=== PATIENT | female | born 1950 | race Caucasian/White ===

== ENCOUNTER → 2023-12-06 12:43 | Outpatient (REF) | payer MEDICARE, OTHER, SELFPAY | LOC: RAD 12:43 | PROVIDERS: ATTENDING PHYSICIAN Urology; FAMILY PHYSICIAN Family Medicine | DX: N11.8 Other chronic tubulo-interstitial nephritis (principal); N20.0 Calculus of kidney | CPT/HCPCS: 74176 ==

== ENCOUNTER → 2023-12-08 14:30 | Outpatient (REF) | payer MEDICARE, OTHER, SELFPAY ==
[2023-12-08 18:05] LABS: Urine Albumin 2+ (Neg - Trace); Urine Bilirubin Negative (Negative); Urine Character Very Cloudy (Clear); Urine Color Yellow; Urine Glucose Negative (Negative); Urine Ketone Negative (Negative); Urine Leukocyte 2+ (Negative); Urine Nitrite Positive (Negative); Urine Occult Blood 4+ (Negative); Urine Specific Gravity 1.015 (<1.030); Urine Urobilinogen Negative (Neg - 1+)
[2023-12-08 18:13] LABS: Urine Squamous Cell 0-2 /LPF (Few); Urine White Cell >100 /HPF (0-5)
== END ==
LOC: CLAB 14:30
PROVIDERS: ATTENDING PHYSICIAN Family Medicine
DX: R82.90 Unspecified abnormal findings in urine (principal)
CPT/HCPCS: 81003; 81015; 87077; 87086

== ENCOUNTER 2023-12-15 15:45 | Inpatient (IN) | payer MEDICARE, OTHER, SELFPAY ==
[2023-12-15] VITALS (32 sets, daily range): BP systolic 57–115; BP diastolic 42–100; BMI 22.1; BMI 21.0
[2023-12-15 13:34] LABS: Glucose - Point of Care 181 mg/dl (70-99)
--- NOTE | 2023-12-15 13:40 | ED.GENMED ---
History of Present Illness
General
Chief Complaint: Urinary Symptoms
Source: patient and ambulance crew
Time Seen by Provider: 12/15/23 13:33
Travel History
Have you had any contact with someone who has COVID-19?: No
Do you have any symptoms of coronavirus? Fever > 100 degrees, chills, cough, shortness of breath, sore throat, loss of taste or smell, muscle aches, or headache?: No
History of Present Illness
History of Present Illness:
73-year-old female presents to the emergency room via ambulance for back pain. Evidently visiting nurse also noted the patient had elevated heart rate low blood pressure. Patient initially taken to triage at became unresponsive and a chair. She
was brought back to treatment room and placed in the supine position had a relatively rapid improvement. She became awake and answer simple questions. Patient noted to have a urostomy bag. She evidently was started on Macrobid for urinary tract
infection recently. Further history limited by confusion.
Past History
Past History
ED Past Medical History: Other (Chronic kidney disease, eye disease, lymphedema, bladder cancer)
Social History
Tobacco: Non-smoker
Alcohol: None
Drug: None
Living: alone
Phy Exam
Physical Exam
Physical Exam:
General: Awake, Alert, oriented to person and place. Appears cachectic and chronically ill
Vitals: Hypothermic, tachycardic, hypotensive
Head: Atraumatic
Eyes: Pupils equal, EOMI
Throat: Airway intact, no exudates, dry mucosa
Neck: Trachea midline
Lungs: Clear and equal b/l
Heart: Tachycardic and irregular rate, no murmurs
Abd: Soft, distended, no significant tenderness, urostomy noted with minimal urine in bag
Rectal:
Neuro: Grossly nonfocal
Skin: Warm, dry, no rash
Extremities: pulses equal b/l, no edema
Course
Orders/Labs/Results
Orders:
Orders
12/15/23
Electrocardiogram (*1) Stat
Reason for Study: Chest Pain
Comment: already done
12/15/23 Lunch
NPO
Allow oral meds: No
Allow clear liquids: No
12/15/23 13:35
0.9% Sodium Chloride 1000 ml [Nss] 2,000 ml IV BOLUS
CR Chest Portable - 1 View Urgent
Comment:
Reason For Exam: sepsis
Reason Study Needs to be Portable: Patient Unstable
12/15/23 13:36
CT Abd/pel Without Iv Or Oral Urgent
Comment:
Reason For Exam: flank pain, hypotensino, ? kidney stone
12/15/23 13:40
Electrocardiogram (*1) Urgent
Reason for Study: Syncope
EKG- Treatment ONCE
12/15/23 13:58
Complete Blood Count/With Diff Urgent
Comprehensive Metabolic Panel Urgent
Ferritin Urgent
Iron Urgent
Lactic Acid Q4H
Comment: CANCEL 2nd LACTIC ACID IF 1st LACTIC ACID IS LESS THAN 2
Total Iron Binding Urgent
Troponin I Urgent
Vitamin B12 Urgent
Comment: IRON,TIBC,FERRITIN,B12 ADDED ON BY FLOOR 3:40PM 12-15-23
Blood Culture Q30M
SHERRI Source: Blood/Venous
Specimen Description:
12/15/23 14:38
Calcium Gluconate IV [Calcium Gluconate 10% 10 ml] 4.65 meq .ROUTE .STK-MED ONE
Calcium Gluconate IV [Calcium Gluconate 10% 10 ml] 4.65 meq .ROUTE .STK-MED ONE
12/15/23 14:39
Blood Culture Q30M
SHERRI Source: Blood/Venous
Specimen Description:
Amiodarone [Cordarone] 150 mg .ROUTE .STK-MED ONE
12/15/23 14:41
Calcium Gluconate IV [Calcium Gluconate 10% 10 ml] 4.65 meq IV NOW STA
12/15/23 14:46
NG Tube [GI tube insertion- Treatment] ONCE
12/15/23 14:48
Piperacillin/Tazo 3.375 Gram [Zosyn] 3.375 gram in 50 ml IV NOW
12/15/23 15:13
Echo 2D MMode Color/Doppler Routine
Reason for Study: hypotension, abnormal EKG
12/15/23 15:14
EKG [Electrocardiogram (*1)] Routine
Reason for Study: Abnormal EKG
12/15/23 15:15
NORepinephrine 4 MG/250 ML [Levophed] 4 mg in 250 ml IV PER PROTOCOL
Initial dose in mcg/min, then titrate:: 4
Titrate to keep:: MAP > 65 mmHg
Titrate by mcg/min:: 1-2 mcg/min
Frequency of titrations (minutes):: 5
Maximum dose in ICU in mcg/min:: 30
Maximum dose in IMU in mcg/min:: 8
Maximum dose in IVU in mcg/min:: 4
Begin to taper infusion when:: Remained at goal for 4hrs
Taper by mcg/min:: 1-2 mcg/min
Frequency of taper (minutes) if patient maintains goal:: 30
Taper to off?: Yes
If infusion off & no longer maintaining goal:: Contact Provider
12/15/23 15:21
Admit/Transfer Patient As Directed
Co-Sign Provider:
Level of Care: Inpatient admission
Assign to:: ICU
Physician / Group: Hospitalist
Diagnosis: SBO,Tachycardia,SHock,Emphesymatous Pyelonephritis
Reason for Hospitalization: SBO,Tachycardia,SHock,Emphesymatous Pyelonephritis
Expected length of stay greater than two midnights?: Yes
ELOS- Estimated Length of Stay in days: 4
I certify the patient meets the requirements for IP care: Yes
12/15/23 15:24
Code Status As Directed
Resuscitation Status: Full Code
12/15/23 15:41
Add On- LAB Routine
Tests Added?: iron,tibc,ferritin,b12
12/15/23 17:14
Lactic Acid Q4H
Comment: CANCEL 2nd LACTIC ACID IF 1st LACTIC ACID IS LESS THAN 2
12/15/23 17:17
Troponin I Q6H
0.9% Sodium Chloride 1000 ml [Nss] 1,000 ml IV 100 mls/hr
12/15/23 17:17
Activity As Directed
Activity Level: Bedrest
NG Tube [Gastrointestinal Tubes] As Directed
Type: [place] sump
To suction?: Yes
Type of suction: Low intermittent
Irrigate tube?: Yes
Irrigant: Tap Water
Frequency: Q4H
Amount in mls: 30
Irrigation Directions: Irrigate Q4H and PRN
PICC Line As Directed
Vital Signs As Directed
Frequency: Per unit guidelines
DX Deep Vein Thrombosis Video Routine
12/15/23 20:42
BMP [Basic Metabolic Panel] Routine
12/15/23 22:00
Latanoprost [Xalatan Ophthalmic Solution] See Dose Instructions BOTH EYES HS
Piperacillin/Tazo 2.25 Gram [Zosyn] 2.25 grams in 50 ml IV Q6H
12/15/23 23:17
Troponin I Q6H
12/16/23 05:17
Troponin I Q6H
12/16/23 06:00
Basic Metabolic Panel IN AM
Complete Blood Count/No Diff IN AM
Magnesium IN AM
TSH IN AM
Vitamin B12 IN AM
12/16/23 08:00
Aspirin Low Dose EC [Aspir Low (Enteric Coated)] 81 mg PO DAILY
Timolol Maleate 0.5% [Timoptic 0.5% Ophthalmic Solution] See Dose Instructions BOTH EYES DAILY
Abnormal Lab Results
12/15/23 12/15/23
13:22 13:58
WBC 16.9 H 10^3/uL
(4.8-10.8)
RBC 3.73 L 10^6/uL
(4.20-5.40)
Hgb 8.9 L g/dL
(12.0-16.0)
Hct 29.0 L %
(37.0-47.0)
MCV 77.7 L fL
(81.0-99.0)
MCH 23.9 L pg
(27.0-31.0)
MCHC 30.7 L g/dL
(33.0-37.0)
RDW 19.3 H %
(11.5-14.5)
Plt Count 697 H 10^3/uL
(130-400)
Abs Immat Gran (auto) 0.3 H 10^3/uL
(0-0.05)
Absolute Neuts (auto) 13.8 H 10^3/uL
(1.4-6.5)
Absolute Monos (auto) 1.3 H 10^3/uL
(0.1-0.6)
Immature Gran % 1.7 H %
(0-0.5)
Neutrophils % 81.8 H %
(42.2-75.2)
Lymphocytes % 8.3 L %
(20.5-51.1)
Sodium 130 L mmol/L
(135-145)
Potassium 5.2 H mmol/L
(3.5-5.1)
Chloride 88 L mmol/L
(98-107)
Carbon Dioxide 21 L mmol/L
(22-30)
BUN 61 H mg/dl
(7-17)
Creatinine 3.7 H mg/dL
(0.6-1.0)
Glucose 137 H mg/dl
(70-99)
Lactic Acid 8.1 H* mmol/L
(0.7-2.0)
Calcium 10.4 H mg/dl
(8.4-10.2)
TIBC 216 L ug/dl
(265-497)
POC Glucose 181 H mg/dl
(70-99)
12/15/23 13:58
12/15/23 13:58
Vital Signs
Initial and Last Documented VS:
Initial Vital Signs
Temp Pulse Resp
96 F L 120 18
12/15/23 13:24 12/15/23 13:24 12/15/23 13:24
Last Documented Vital Signs
Temp Pulse Resp BP Pulse Ox
96 F L 107 22 108/96 100
12/15/23 13:24 12/15/23 17:49 12/15/23 17:49 12/15/23 17:49 12/15/23 18:08
MDM/Problems Addressed
Differential Diagnosis Includes:
Septic shock, dehydration, electrolyte abnormality, renal failure, pneumonia
MDM/Problems Addressed:
73-year-old lady brought to the emergency room by ambulance. She arrives in unstable condition. Patient was evidently briefly taken to triage but became unresponsive and brought back immediately to treatment room. She is found to be hypotensive.
IV access was obtained and IV fluid resuscitation initiated. On physical exam she is noted to appear lethargic, dry, have a distended abdomen and peripheral lymphedema. With fluid resuscitation the patient's blood pressure did improve
significantly. Initial EKG showed a sinus tachycardia with nonspecific ST changes. However patient was observed to have episodes of rapid heart rate. On the production gear cutter the morphology appeared to be wide-complex tachycardia. An EKG taken at
that time actually showed what appears to be atrial fibrillation or a atrial tachycardia with a wide-complex rhythm. Likely SVT or A-fib with aberrancy. With a somewhat slower heart rate a another EKG was obtained and this shows A-fib at 124 with
some aberrantly conducted QRS complexes. Cardiology consultation was requested to help manage her tachycardia. CT of the abdomen pelvis without IV contrast was obtained. This shows significant chronic changes of both kidneys but evidence of acute
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 She has chronic stones and changes of chronic pyelo on the right as well. Urology consultation was obtained with the recommendation of involving interventional radiology for a right nephrostomy tube.
This consult was placed and interventional radiology notified via [place] text. CT of the abdomen pelvis also revealed evidence for small bowel obstruction. Her stomach was impressively distended. NG tube was placed with retrieval of over 2 L of
gastric contents. Surgical consultation was requested to help manage the bowel obstruction versus ileus. Patient will be admitted to the hospital service to the intensive care unit. Broad-spectrum IV antibiotics were initiated. Patient is blood
pressure was somewhat labile and an order was placed for Levophed. He was not started initially as her MAP did improve above 65 ultimately the Levophed was initiated because of the borderline blood pressure.
I spoke to the patient's niece to inform her of the events and diagnoses made here in the emergency room.
Chronic conditions affecting care: Psychiatric illness, Kidney disease and Cancer (Bladder cancer, skin cancer)
*Radiology
Radiology exam reviewed: radiology read reviewed
*Pulse Oximetry
Patient hypoxic: no
*EKG
Interpreted by ED Provider?: Yes
Interpretation: abnormal
Heart Rate: 96
Rate: normal
Rhythm: sinus
[place]: normal axis
Interval: normal interval
QRS Pattern: normal QRS
Ischemia: non-specific ST changes
*Rod Piler Interpretation
Rate: normal
Interpretation: normal
Rhythm: sinus
*Critical Care Note
Total Time (30-74mins, 75-104mins- exclusive of procedures): 65 min
comment:
Critical care statement: A total of 65 minutes of critical care time was provided for this patient. This includes management of unstable vital signs, evaluation of the patient at bedside, reviewing the patient's pertinent medical records, discussion
with consultants, review of old EKGs and review of pertinent medical records. This time with separate from time utilized to perform the aforementioned documented procedures
Patient Management
Social determinants of health affecting care: Living situation and Other (History of mental illness)
Discussion with other providers: Hospitalist, [employer] (Communication with Dr. Hanson from cardiology, Dr. Yang for urology, Dr. Limon for general surgery, Nitin for the hospitalist) and Radiologist (Communication with Dr. Desai about the
patient's CT report)
ED Attending Note
-
Portions of this chart may have been created with voice recognition software.� Occasional wrong word or��sound alike� substitutions may have occurred due to the inherent limitations of voice recognition software.
Discharge Plan
Departure
Patient Disposition: Admit
Date of Disposition: 12/15/23
Time of Disposition: 15:10
Admit to: ICU
Presentation/result/management discussed w/ accepting MD/DO: Hospitalist
Condition: Serious
Discharge Problem:
Pyelonephritis, Acute renal failure (ARF), Supraventricular arrhythmia, Septic shock
Interventions
Interventions:
*Risk Screen - Suicide Last Done: 12/15/23 16:10
*General Assessment Last Done: 12/15/23 13:16
*Neglect/Abuse Screening Last Done: 12/15/23 13:16
ED- Fall Risk Assessment Last Done: 12/15/23 14:09
*ED COVID-19 Vaccine History Last Done: 12/15/23 16:10
*Nursing Disposition Last Done: 12/15/23 17:15
Discharge Date and Time
Discharge Date/Time: 12/15/23 17:17
[2023-12-15] MEDS: NSS 2000 IV (13:41)
[2023-12-15 14:08] LABS: % Basophils 0.2 % (0-2); % Eosinophils 0.1 % (0-6); % Immature Granulocytes 1.7 % (0-0.5); % Lymphocytes 8.3 % (20.5-51.1); % Monocytes 7.9 % (1.7-9.3); % Neutrophils 81.8 % (42.2-75.2); Absolute Immature Granulocytes 0.3 10^3/uL (0-0.05); Absolute Lymphocytes 1.4 10^3/uL (1.2-3.4); Absolute Monocytes 1.3 10^3/uL (0.1-0.6); Absolute Neutrophils 13.8 10^3/uL (1.4-6.5); Hemoglobin 8.9 g/dL (12.0-16.0); Mean Corp Hgb Conc. 30.7 g/dL (33.0-37.0); Mean Corpuscular Hgb 23.9 pg (27.0-31.0); Mean Corpuscular Volume 77.7 fL (81.0-99.0); Mean Platelet Volume 9.1 fL (7.4-10.4); Nucleated Red Blood Cells % 0 %; Platelet Count 697 10^3/uL (130-400); Red Blood Cell Count 3.73 10^6/uL (4.20-5.40); Red Cell Dist. Width 19.3 % (11.5-14.5); White Blood Cell Count 16.9 10^3/uL (4.8-10.8)
[2023-12-15 14:23] LABS: ALT (SGPT) 25 U/L (0-35); AST (SGOT) 22 U/L (14-36); Albumin 3.9 g/dl (3.5-5.0); Alkaline Phosphatase 100 U/L (38-126); Blood Urea Nitrogen 61 mg/dl (7-17); Calcium 10.4 mg/dl (8.4-10.2); Carbon Dioxide 21 mmol/L (22-30); Chloride 88 mmol/L (98-107); Estimated Creatinine Clearance 10 ml/min; Glucose 137 mg/dl (70-99); Potassium 5.2 mmol/L (3.5-5.1); Sodium 130 mmol/L (135-145); Total Bilirubin 0.4 mg/dl (0.2-1.3); Total Protein 7.4 g/dl (6.3-8.2); eGFR 12.38
[2023-12-15 14:32] LABS: Troponin I 0.014 ng/ml
[2023-12-15] MEDS: CALCIUM GLUCONATE 10% 10 ML 4.65000000000000036 MEQ IV (14:42)
[2023-12-15] MEDS: ZOSYN 50 IV ×2 (14:54→22:29)
--- NOTE | 2023-12-15 15:04 | HPS.HSE ---
Family Physician
-
Family Physician: Aracelis Brito MD
Chief Complaint
-
Back pain
History of Present Illness
Patient had a visiting nurse who noted that her heart rate was high and blood pressure was low. Patient was brought into the emergency room in the triage where she had a presyncopal event. She was being treated as a UTI with Macrobid as outpatient
patient has a urostomy bag. Pt poor Historian
Medical History
Past Medical History
Past Medical History: Reports Other
Additional Past Medical History:
, Hyperlipidemia, arthritis/osteoporosis, bladder cancer, anxiety, schizophrenia chronic kidney disease, anemia, tardive dyskinesia, essential tremors
Past Surgical History: Reports Other
Additional Past Surgical History:
Left leg orthopedic surgery, hysterectomy, been ectomy, cystectomy, cataract surgery, breast reduction
Social History
Tobacco: Non-smoker
Alcohol: None
Drug: None
Personal: Single
Living: Alone
Employment: Not Employed
Family History
Family History: Not pertinent
Allergies / Home Medications
Allergies reflects when Allergies were last updated in [facility].
Home Medications with original date entered in [facility]
Allergy/Medication List:
Allergies
Allergy/AdvReac Type Severity Reaction Status Date / Time
No Known Allergies Allergy Unverified 10/31/22 14:10
Home Medications
alendronate 70 mg tablet 70 mg PO WEEKLY 12/15/23
aspirin 81 mg tablet,delayed release 81 mg PO DAILY 12/15/23
latanoprost 0.005 % eye drops 1 drp BOTH EYES QPM 12/15/23
lisinopril 20 mg tablet 20 mg PO DAILY 12/15/23
nitrofurantoin monohydrate/macrocrystals 100 mg capsule 100 mg PO BID 12/15/23
ondansetron HCl 8 mg tablet 8 mg PO Q8HPRN PRN nausea 12/15/23
sennosides 8.6 mg tablet (Senokot) 8.6 mg PO BIDPRN PRN constipation 12/15/23
timolol maleate 0.5 % eye drops 1 drp BOTH EYES DAILY 12/15/23
Review of Systems
-
History Source: Patient
A 12 point ROS was completed and negative except as noted: Yes
Respiratory: Denies Cough or Trouble Breathing
Cardiac: Denies Chest Pain
Abdomen/GI: Denies Abdominal Pain
Physical Exam
Vital Signs
Vital Signs
Temp Pulse Resp BP Pulse Ox
96 F L 147 22 70/44 98
12/15/23 13:24 12/15/23 14:09 12/15/23 14:08 12/15/23 14:08 12/15/23 14:09
Physical Exam
General: No Apparent Distress
Respiratory: Clear
Cardiac: S1/S2, Regular Rhythm and Tachycardia
GI: Soft and Ostomy (Urostomy with clear urine); No Normal Bowel Sounds
Skin: Warm
Neuro: Awake, Alert, Oriented and No Motor Deficits
Psych: Calm
Laboratory Results
-
12/15/23 13:58
12/15/23 13:58
Laboratory Results
Total Bilirubin 0.4 mg/dl (0.2-1.3) 12/15/23 13:58
AST 22 U/L (14-36) 12/15/23 13:58
ALT 25 U/L (0-35) 12/15/23 13:58
Alkaline Phosphatase 100 U/L (38-126) 12/15/23 13:58
Troponin I 0.014 ng/ml 12/15/23 13:58
Data Reviewed
-
Diagnostic Radiology: Image Personally Visualized and interpreted (Chest x-ray-NG tube, no infiltrates)
CT Scan: Report Reviewed by me (Small bowel obstruction, high-grade. 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
Medical Tests (Nuc Med, Echo, EKG etc): Image Personally Visualized and interpreted (EKG-sinus rhythm with supraventricular complexes,AT? left axis deviation, nonspecific ST-T changes)
Impression/Plan
-
IMPRESSION/PLAN:
# Shock-hypovolemic versus septic
IVF
Pressors
Picc line
Hold lisinopril
# Small bowel obstruction high-grade
Keep n.p.o. with NG tube
IV fluids
Surgical consultation requested
# Emphysematous pyelonephritis
Blood and urine cultures
Broad-spectrum antibiotics-Zosyn
Urology consultation
# Tachycardia
# Anemia-check iron studies
# Thrombocytosis
# Acute kidney injury on CKD-likely stage IIIB
# Hyponatremia-likely hypovolemic. IV fluids
Repeat BMP later tonight
# Hyperkalemia-repeat BMP later tonight
# Lactic acidosis-follow
# Hypocalcemia-likely dehydration related
# Hypertension-hold lisinopril
# History bladder cancer with cystectomy and urostomy
# Anxiety and schizophrenia
# Developmental Delay
# Visual impairment -? Glaucoma- Continue Eye drops latanoprost and timolol
# Tardive dyskinesia
# Essential tremors
# DVT prophylaxis-Lovenox
# CODE STATUS-Full code per D/W Niece (Pt never fills out paper work or commit)
Discussed with ER
D/W Surgery
D/W Cards at bed side
D/W RN at bed side
ICU made aware
D/W Niece on the phone and updated.
Critical care time 50 minutes
[2023-12-15 15:14] LABS: Lactic Acid 8.1 mmol/L (0.7-2.0)
--- NOTE | 2023-12-15 15:20 | CON.GS ---
Consultation
-
Reason for Consultation: sbo
Medical History
-
Chief Complaint: nausea, back pain
History of Present Illness:
This is a 73 yo female with a history of bladder ca and cystectomy with ileal conduit creation at [facility] in 2005 who presents with back pain and nausea from home where she lives alone with her cat with VNA checking on her. She is hypotensive and
tachycardic with hypothermia in the ED. She is unsure when her last BM was and is unsure when she last passed flatus. She notes constipation is a chronic issue for her. Overall, she is currently a poor historian. An NGT was placed in the ED with a
large amount of bilious output immediately noted (2.5L at time of my exam). She was initially non conversive per her nurses but is now conversive and able to offer history. She notes her back pain is currently improving and nausea has resolved since
NGT was placed. There is purulent output noted within her urostomy appliance. Stoma is pink and viable but prolapsed. Abdominal distention present with some generalized tenderness present which she notes has improved.
Past Medical History
Past Medical History: Cancer (bladder), Psychiatric (bipolar, IRMA), Renal Failure (CKD) and Other (lymphedema, staghorn renal calculi)
Past Surgical History: Gynecological (hysterectomy) and Urological (cystectomy with ileal conduit creation 2005)
Social History
Tobacco: Non-Smoker
Alcohol: None
Living: Alone
Family History
Family History: Reviewed & Not Pertinent
Allergies / Home Medications
Allergy/AdvReac Type Severity Reaction Status Date / Time
No Known Allergies Allergy Unverified 10/31/22 14:10
�Medication �Instructions �Recorded �Confirmed �Type
alendronate 70 mg tablet 70 mg PO WEEKLY 12/15/23 12/15/23 History
aspirin 81 mg tablet,delayed 81 mg PO DAILY 12/15/23 12/15/23 History
release
latanoprost 0.005 % eye drops 1 drp BOTH EYES QPM 12/15/23 12/15/23 History
lisinopril 20 mg tablet 20 mg PO DAILY 12/15/23 12/15/23 History
nitrofurantoin 100 mg PO BID 12/15/23 12/15/23 History
monohydrate/macrocrystals 100 mg
capsule
ondansetron HCl 8 mg tablet 8 mg PO Q8HPRN PRN nausea 12/15/23 12/15/23 History
sennosides 8.6 mg tablet (Senokot) 8.6 mg PO BIDPRN PRN constipation 12/15/23 12/15/23 History
timolol maleate 0.5 % eye drops 1 drp BOTH EYES DAILY 12/15/23 12/15/23 History
Review of Systems
-
History Source: Patient
All other systems: Negative unless noted
A 10 point review of systems was completed, and was negative except as per HPI.
Physical Exam
Vital Signs
Temp Pulse Resp BP Pulse Ox
96 F L 112 24 87/70 98
12/15/23 13:24 12/15/23 15:08 12/15/23 15:08 12/15/23 15:08 12/15/23 15:08
12/14/23 12/15/23 12/16/23
06:59 06:59 06:59
Actual Weight 53 kg
Body Mass Index (BMI) 22.1
Lab Results
12/15/23 13:58
12/15/23 13:58
WBC 16.9 10^3/uL (4.8-10.8) H 12/15/23 13:58
Hgb 8.9 g/dL (12.0-16.0) L 12/15/23 13:58
Hct 29.0 % (37.0-47.0) L 12/15/23 13:58
Plt Count 697 10^3/uL (130-400) H 12/15/23 13:58
Abs Immat Gran (auto) 0.3 10^3/uL (0-0.05) H 12/15/23 13:58
Neutrophils % 81.8 % (42.2-75.2) H 12/15/23 13:58
Physical Exam
General: Comfortable
HEENT: Negative Moist Mucous Membranes
Respiratory: Non Labored Respirations
GI: Tender (generalized) and Distended
Genito-urinary: Other (urostomy with purulent thick discharge, prolapsed stoma/reduced)
Skin: Warm
Neuro: Awake, Alert and AO x 3
Psych: Calm
Data Reviewed
-
CT Scan: Image Personally Visualized and interpreted, Report Reviewed by me, Discussed with Physician, Discussed with Nurse and Discussed with Patient
Labs: Labs Reviewed by me, Discussed with Physician, Discussed with Nurse and Discussed with Patient
Old Records: Reviewed
Assessment / Plan
-
73 yo female with a history of bladder ca and cystectomy with ileal conduit creation at [facility] in 2005 who presents with back pain and nausea from home. CT imaging reviewed with concern for emphysematous pyelonephritis noted in addition to SBO with
significantly distended stomach (adhesive vs reactive to infection). Stool burden noted with reported chronic constipation. No free air or evidence of bowel compromise. NGT placed in the ED with large bilious outputs noted (2.5L thus far) with
symptomatic improvement. She was significantly hypotensive, tachycardic and hypothermic on arrival. Acute on chronic renal failure noted. Lactic acid markedly elevated. Leukocytosis present.
Being admitted to ICU under medicine service for sepsis management. Medical management as per primary team
Continue NGT to LIWS and keep NPO
No indication for immediate surgical intervention from general surgery standpoint, will follow non-operatively at this time for improvement in SBO with bowel decompression/rest and supportive measures
Would recommend urgent consult to urology
--- NOTE | 2023-12-15 15:38 | CON.CAR ---
Addendum entered and electronically signed by Genaro Hanson MD 12/15/23 18:05:
73 yo female with h/o bladder cancer, urostomy, HTN admitted with septic shock. She has SBO and also right pyelonephritis. We are consulted for A fib with RVR. Exam: irregular rhythm, no murmurs. Echo: EF 55-60%, mild AR.
She is being treated for septic shock.
Given low BP, pressor requirement, I will use IV amiodarone for her A fib.
CHADS2-VASC = 3. She is also anemic. She is a [employer] witness. Trend Hgb, and re-assess for AC tomorrow.
Original Note:
Consultation
Consultation Request
Date/Time Consultation Requested: 12/15/23 3p
Date/Time Consultation Performed: 12/15/23 3:20p
Requesting Provider: Dr. Byrne
Performing Provider: NATALI Lynn for Dr. Hanson
Reason for Consultation: hypotension, tachycardia
Medical History
-
Chief Complaint: back pain
History of Present Illness:
Ms. Montoya is a 73 yo female with CKD, lymphedema b/l LE, bladder cancer with urostomy bag, who presents to the ER with c/o back pain. Visiting nurse reported she was hypotensive and tachycardic at home so called EMS. Then in the ER she became
unresponsive briefly, then was laid down supine with improvement of BP and responsive again. She c/o back pain. She is hypothermic, hypotensive with lactic acid of 8.1, creatinine 3.7, K 5.2, wbc 16.9, hgb 8.[address] abd/pelvis
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 She has an NG tube in place that drained 2L of green liquid. We are consulted for tachycardia.
She denies any cardiac complaints. Initial EKG today showed NSR with supraventricular complexes 96 bpm. Second EKG showed ST [address]ations.
Past Medical History
Past Medical History: Other (as above)
Past Surgical History: Other (as above)
Social History
Tobacco: Non-Smoker
Alcohol: None
Personal: Single
Living: Alone
Family History
Family History: Reviewed & Not Pertinent
Allergies / Home Medications
Allergy/AdvReac Type Severity Reaction Status Date / Time
No Known Allergies Allergy Unverified 10/31/22 14:10
�Medication �Instructions �Recorded �Confirmed �Type
alendronate 70 mg tablet 70 mg PO WEEKLY 12/15/23 12/15/23 History
aspirin 81 mg tablet,delayed 81 mg PO DAILY 12/15/23 12/15/23 History
release
latanoprost 0.005 % eye drops 1 drp BOTH EYES QPM 12/15/23 12/15/23 History
lisinopril 20 mg tablet 20 mg PO DAILY 12/15/23 12/15/23 History
nitrofurantoin 100 mg PO BID 12/15/23 12/15/23 History
monohydrate/macrocrystals 100 mg
capsule
ondansetron HCl 8 mg tablet 8 mg PO Q8HPRN PRN nausea 12/15/23 12/15/23 History
sennosides 8.6 mg tablet (Senokot) 8.6 mg PO BIDPRN PRN constipation 12/15/23 12/15/23 History
timolol maleate 0.5 % eye drops 1 drp BOTH EYES DAILY 12/15/23 12/15/23 History
Review of Systems
-
History Source: Patient
All other systems: Negative unless noted
Physical Exam
Vital Signs
Temp Pulse Resp BP Pulse Ox
96 F L 119 25 92/70 98
12/15/23 13:24 12/15/23 15:21 12/15/23 15:21 12/15/23 15:21 12/15/23 15:21
Lab Results
12/15/23 13:58
12/15/23 13:58
Troponin I 0.014 ng/ml 12/15/23 13:58
Physical Exam
General: Other (chronically ill appearing, thin, appears older than stated age)
HEENT: Normocephalic and Other (dry mucous membranes)
Respiratory: Non Labored Respirations
Cardiac: S1/S2, Regular Rhythm (tachycardia) and Peripheral Edema (mild/moderate LE b/l with lymphedema wraps in place)
Breast: Deferred by me
GI: Distended and Other (urostomy bag RLQ)
Rectal: Deferred by Provider
Genito-urinary: Other (urostomy bag)
Musculoskeletal: No Clubbing
Skin: Warm and Dry
Neuro: Awake and Alert
Psych: Calm
Impression / Plan
-
ST - acute in the setting of GUI, high grade SBO and pyelonephritis.
- tele with SR/ST with PACs, continue to monitor.
Abnormal EKG - inferior ST elevation on EKG noted.
- repeat EKG ordered for now.
- check echo in the ER now.
SBO - acute.
- NG tube in place, drained 2L green fluid in the ER.
- surgery consulted.
Hypotension - acute.
- in the setting of GUI, SBO and pyelonephritis.
- holding outpatient BP meds.
GUI - acute on chronic CKD.
- creatinine 3.7.
Pyelonephritis - acute.
- urostomy bag.
- awaiting urine specimen.
Data Reviewed
-
Radiology: Report Reviewed by me (cxr: No pneumothorax or pleural effusion, NG tub in the stomach)
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
Labs: Labs Reviewed by me
--- NOTE | 2023-12-15 15:52 | CON.INTV ---
Consultation
Consultation Request
Date/Time Consultation Requested: 12/14
Date/Time Consultation Performed: 12/14
Reason for Consultation: Critical care
Medical History
-
History of Present Illness:
History obtained from the patient, Reviewing ER records, outpatient records. Patient is a 73-year-old female who was brought to [facility] because of presyncope. Patient apparently has a visiting nurse at home. She was being treated with
Macrobid as outpatient for UTI. ED records suggest complaints of back pain. However, to me patient stated that she was feeling fatigued. She also admits to having a fall in the last week, she does have a history of multiple falls per records.
Upon arrival to [facility], afebrile, pulse 147, breathing at 22, blood pressure 70/44, 98%. We are asked to help from critical care standpoint
History of gross hematuria in the past, intermittent. History of frequent falls. She does have visiting nurse, patient is unable to change her own ostomy bag.
Prior outpatient urology correspondence suggests episodic drainage of purulent urine, last seen by urology 11/22/2023 [facility])
.
PMH: Hypertension, hyperlipidemia, history of bladder cancer, chronic kidney disease stage III , history of nephrolithiasis, and complex renal cysts, anemia, history of essential tremors, tardive dyskinesia, bipolar disorder, chronic lymphedema,
history of anemia on iron therapy. History of hysterectomy/BSO, cataract surgery, breast reduction. History of cystectomy with ileal conduit in 2005
Past Medical History
Past Medical History: None (See above)
Past Surgical History: None (See above)
Social History
Tobacco: Non-smoker
Alcohol: None
Drug: None
Personal: Single
Living: Alone
Employment: Not Employed
Family History
Family History: Other (Father , mother from a stroke. 3 siblings. Brother with history of non-Hodgkin's lymphoma. Sister with Parkinson's. She has another brother and sister that at .)
Allergies / Home Medications
Allergies
Allergy/AdvReac Type Severity Reaction Status Date / Time
No Known Allergies Allergy Unverified 10/31/22 14:10
Home Medications
�Medication �Instructions �Recorded �Confirmed �Last Taken �Type
alendronate 70 mg tablet 70 mg PO WEEKLY 12/15/23 12/15/23 Unknown History
aspirin 81 mg tablet,delayed 81 mg PO DAILY 12/15/23 12/15/23 Unknown History
release
latanoprost 0.005 % eye drops 1 drp BOTH EYES QPM 12/15/23 12/15/23 Unknown History
lisinopril 20 mg tablet 20 mg PO DAILY 12/15/23 12/15/23 Unknown History
nitrofurantoin 100 mg PO BID 12/15/23 12/15/23 Unknown History
monohydrate/macrocrystals 100 mg
capsule
ondansetron HCl 8 mg tablet 8 mg PO Q8HPRN PRN nausea 12/15/23 12/15/23 Unknown History
sennosides 8.6 mg tablet (Senokot) 8.6 mg PO BIDPRN PRN constipation 12/15/23 12/15/23 Unknown History
timolol maleate 0.5 % eye drops 1 drp BOTH EYES DAILY 12/15/23 12/15/23 Unknown History
Review of Systems
-
All other systems: Negative unless noted
Vitals / Labs / Diagnostic Testing
Vital Signs
Temp Pulse Resp BP Pulse Ox
96 F L 119 25 92/70 98
12/15/23 13:24 12/15/23 15:21 12/15/23 15:21 12/15/23 15:21 12/15/23 15:21
Lab Data
12/15/23 13:58
Diagnostic Testing:
Physical Exam
-
HEENT: Normocephalic, Anicteric and Other (Poor dentition, cachectic, dry mucosa)
Cardiovascular: S1/S2, Regular Rhythm (Tachycardic), Murmur (n), Rub (n) and Peripheral Edema (lymphedema, lower extremity braces in place)
Respiratory: Wheeze (n), Rales (n), Rhonchi (n), Non-Labored Respirations and Other (Decreased, poor inspiratory effort)
GI: Soft, Distended (Yes), Non Tender and Other (Ileal conduit urinary diversion, ostomy bag appears pink)
Neurology: Awake, Alert and Tremors (Tremulous, tremulous speech)
Skin: Other (No clubbing, no cyanosis)
General: Comfortable (Appears comfortable, but anxious with conversation)
Assessment
-
73-year-old female with history of radical cystectomy with ileal conduit urinary diversion 2005 for bladder cancer squamous cell. There has been no evidence of recurrence, with stable inguinal lymphadenopathy. Of note she has history of gross
hematuria with recurrence, known extensive staghorn calculus with nephrolithiasis. Patient with thick blood and purulent urine in the ostomy bag which appears to be intermittent, resolves with antibiotic therapy. Most recently was started on
Macrodantin as outpatient now presents with sepsis, tachycardia, hypotension, lethargy. We are asked to help from critical care standpoint 12/15/2023
Septic shock, hypotension
Improved with IV fluids
Back pain
Sinus tachycardia
Abnormal EKG
Inferior ST elevation, transient
Incomplete right bundle branch block
Lethargy, mental status changes
Completed with IV fluids
Leukocytosis/anemia
History of recurrent UTI
Recent course of Bactrim November 2023
History of nephrolithiasis, large calculi per imaging in the past
Complex renal cysts
Imaging worrisome for emphysematous pyelonephritis
Possible ileus
NG tube placed in ED
Large bilious volume removed
Large gastric bubble per abdominal imaging
Acute renal insufficiency, creatinine 3.7
Baseline 1.5
Hyponatremia/hyperkalemia
Elevated lactate
Conditions present prior to admission:
Bladder cancer 2005
Squamous cell
Status post radical cystectomy with ileal conduit urinary diversion ([facility])
Follows urology ([facility])
No evidence of recurrence since
Chronic kidney disease, baseline 1.5
Generalized anxiety disorder
Hx of Tardive dyskinesia
Bipolar disorder
Chronic lymphedema
Cachexia
History of multiple falls
Plan/recommendations
At this time, patient appears to be critically ill although per ED records, she appears to be more conversive, less lethargic after IV fluids and NG tube placed
Unclear whether patient may have an ileus. Abdominal distention is noted
Upon placement of NG tube, large bilious output noted, 2.5 L per correspondence
Tachycardia noted
History of chronic urological issues, staghorn calculi, now with back pain
Recent course of Bactrim as outpatient with purulent output via urostomy bag
Moving forward
Patient is critically ill with complex decision making process
EKG at [address] elevation
Repeat EKG at 1541 without any evidence of ST elevation, nonspecific ST abnormalities
Incomplete right lower branch block
Significant ileus noted, large gastric bubble, possible small bowel obstruction per abdominal imaging
Patient states she feels much better presently
It is noted that patient has received amiodarone, Zosyn, calcium, IV saline
Blood pressures have been labile, 50s to 110s
Continue with broad-spectrum antibiotics
Recent UA from 12/06/2023 abnormal. Patient apparently completed course of Bactrim as outpatient, Macrodantin therapy also noted
Abdominal imaging with evidence of nephrolithiasis and chronic pyelonephritis, now with emphysematous pyelonephritis changes per abdominal imaging
Follow urostomy output
No clear evidence of pneumonia. No history of emesis
Interventional radiology has been consulted for percutaneous nephrostomy tube
Suspect possible bowel obstruction
Surgery has been consulted. NG tube in place
Abdominal CT without any obvious mass per report
Follow
EKG abnormalities noted, appears to be transient, now resolved
Unclear if related to significant gastric distention, ileus
Seems to be improved on follow-up EKG
Echocardiogram being done in the ED. Cardiology following
Continue with IV fluids
Follow electrolytes, follow lactate
Creatinine noted, follow urostomy output
Patient requires complex decision making process
Reviewed with critical care nursing
TCCT 40 min
[2023-12-15] MEDS: LEVOPHED 250 IV ×2 (16:04→22:29)
[2023-12-15 16:14] LABS: Iron 64 ug/dl (37-170)
[2023-12-15 16:24] LABS: Percent Saturation 29 % (20-50); Total Iron Binding Capacity 216 ug/dl (265-497)
--- NOTE | 2023-12-15 16:36 | CONS.URO ---
Consultation
-
Requesting Provider: Chavez
Performing Provider: Trey
Reason for Consultation: renal calculus; urostomy status s/p cystectomy for bladder cancer
Medical History
History of Present Illness
�[address] Epstein at [facility]
�������
�������2005 she had a radical cystectomy with ileal conduit urinary diversion, MARV/BSO
�������Pathology showed 6cm squamous cell carcinoma
�������Follow up since that time has been negative for recurrence, though some imaging in the past few years has demonstrated stable inguinal lymphadenopathy
�������-
�������History of gross hematuria which began in 2019 and persists intermittently to present
�������CTAP 12/2018: showed extensive calculi, some in staghorn configuration; patient declined recommended surgical intervention
������
�������
�������CT 11/2020 again demonstrated extensive R renal staghorn calculus, now with heterogeneous solid and cystic changes of the right kidney, compatible with XGP.
������As patient was asymptomatic, intervention was declined
�������-
�������Routine renal US 05/2021 obtained by PCP again showed large calculi and complex cystic lesions
�������-
�������She is follow by associate professor of theology Dr. Arita
�������History of CKD with baseline creatinine around 1.5
�������---
�������11/22/[address] Arce:
�������Patient referred due to thick, blood or purulent urine in ostomy bag
�������She was started on course of abx which she has nearly completed
�������No fevers or symptoms per patient.
Today, patient presented to ED with signs of sepsis --> to be admitted to ICU
Past Medical History
Past Medical History: Other (Hypertension, hyperlipidemia, history of bladder cancer, chronic kidney disease stage III , history of nephrolithiasis, and complex renal cysts, anemia, essential tremors, tardive dyskinesia, bipolar disorder, chronic
lymphedema, anemia on iron therapy. s/physterectomy)
Allergies/Home Medications
Allergies
Allergy/AdvReac Type Severity Reaction Status Date / Time
No Known Allergies Allergy Unverified 10/31/22 14:10
Home Medications
�Medication �Instructions �Recorded �Confirmed �Type
alendronate 70 mg tablet 70 mg PO WEEKLY 12/15/23 12/15/23 History
aspirin 81 mg tablet,delayed 81 mg PO DAILY 12/15/23 12/15/23 History
release
latanoprost 0.005 % eye drops 1 drp BOTH EYES QPM 12/15/23 12/15/23 History
lisinopril 20 mg tablet 20 mg PO DAILY 12/15/23 12/15/23 History
nitrofurantoin 100 mg PO BID 12/15/23 12/15/23 History
monohydrate/macrocrystals 100 mg
capsule
ondansetron HCl 8 mg tablet 8 mg PO Q8HPRN PRN nausea 12/15/23 12/15/23 History
sennosides 8.6 mg tablet (Senokot) 8.6 mg PO BIDPRN PRN constipation 12/15/23 12/15/23 History
timolol maleate 0.5 % eye drops 1 drp BOTH EYES DAILY 12/15/23 12/15/23 History
Physical Exam
Vital Signs
Vital Signs
Temp Pulse Resp BP Pulse Ox
96 F L 134 21 94/60 98
12/15/23 13:24 12/15/23 16:15 12/15/23 16:15 12/15/23 16:15 12/15/23 16:15
Lab / Testing Results
Laboratory Results
12/15/23 13:58
Assessment / Plan
-
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
Left Renal Stones
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
Rec:
as retrograde placement of ureteral stent is precluded by lower urinary tract's surgically altered anatomy, I Rad should be enlisted to place a right PCN tube to alleviate obstruction of right kidney which represents the origin of the apparent
urosepsis [d/w Dr Byrne]
if patient survives, the right nephrectomy would be advised and removal of stones from functionally solitary left kidney
Data Reviewed
-
CT Scan: Image personally visualized and interpreted (Obstructing ~3m right renal pelvic stone plus numerous other stones; collecting system is chronically dilated with negligible remaining renal parenchyma; left kidney has a ~ 17 mm non-obstructing
renal stone plus numerous smaller calculi)
Old Records: Reviewed
--- NOTE | 2023-12-15 16:45 | PTCARENOTE ---
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
[2023-12-15 17:32] LABS: Lactic Acid 3.8 mmol/L (0.7-2.0)
[2023-12-15 17:36] LABS: INR 1.28; PT 15.8 Sec (11.4-14.6)
[2023-12-15] MEDS: NSS 1000 IV ×2 (17:36→22:29)
--- NOTE | 2023-12-15 18:03 | W.PN.UPDATE ---
Update Note
Progress Note Update
patient on phone
updated nurse re: urology situation and plan
--- NOTE | 2023-12-15 18:36 | W.PN.UPDATE ---
Update Note
Progress Note Update
Right PCN placed, yielding grossly purulent fluid. Sent for C+S.
--- NOTE | 2023-12-15 18:37 | PTCARENOTE ---
Received pt from ER into rm [id number] @ 1700, see assessment as charted. Oriented x3, anxious/tremulous; denies pain. Afib on monitor w rates 100-140's. SpO2 100% RA. Hypo BS, abd distended. L anre NGT in place draining lg amt green output. R upper
urostomy in place w no output. #20 L FA w IVF and levo infusing- see work list. Pt. transported to IR for R PCN tube via bed w this RN shortly after arrival to unit. Awaiting pt.'s return back from IR.
[2023-12-15 18:46] LABS: Vitamin B12 911 pg/ml (239-931)
--- NOTE | 2023-12-15 21:00 | PTCARENOTE ---
Rec'd pt from IRAD s/p perc nephrostomy tube, oriented to self/time anxious about current situation, rambling off several different things unrelated to hospital stay. Pt tremulous/stammering then showing pictures on her phone. Mentally all over the
place, but able to engage in conversation briefly. Pt tearful at times and not making eye contact with conversation. Temp 94.3, awaiting PICC line to start amiodarone infusion as ordered. VAT team notified. Unable to obtain additional PIV at this
time, pt has Levo/IVF infusing. Labs sent and pending. 99% on room air. Lungs clear, decreased. Left nare NGT green bilious output. Abdomen distended. Hypoactive bowel sounds. Right nephrostomy tube with purulent output. Urostomy with minimal clear
pink output. Will continue to reorient pt to surroundings. Will monitor.
[2023-12-15 21:40] LABS: Blood Urea Nitrogen 65 mg/dl (7-17); Calcium 9.9 mg/dl (8.4-10.2); Carbon Dioxide 28 mmol/L (22-30); Chloride 90 mmol/L (98-107); Estimated Creatinine Clearance 10 ml/min; Glucose 102 mg/dl (70-99); Sodium 131 mmol/L (135-145); eGFR 11.62
[2023-12-15 21:53] LABS: Troponin I 0.046 ng/ml
[2023-12-15] MEDS: CORDARONE 518 MG IV (22:29)
[2023-12-15] MEDS: XALATAN OPHTHALMIC SOLUTION 1 DROP BOTH EYES (23:01)
[2023-12-16] VITALS (33 sets, daily range): BP systolic 69–112; BP diastolic 42–95; BMI 22.2
[2023-12-16] MEDS: HEPARIN SC (00:30)
--- NOTE | 2023-12-16 00:50 | PTCARENOTE ---
Bijalo never hung, currently pending. Pt in ST without intervention. ANNAMARIA Duke notified. Strip on chart.
[2023-12-16] MEDS: ZOSYN 50 IV ×4 (05:03→22:00)
[2023-12-16 05:37] LABS: Urine Albumin 3+ (Neg - Trace); Urine Bilirubin Negative (Negative); Urine Character Mucous (Clear); Urine Glucose Negative (Negative); Urine Ketone Trace (Negative); Urine Leukocyte 2+ (Negative); Urine Nitrite Negative (Negative); Urine Occult Blood 4+ (Negative); Urine Specific Gravity 1.015 (<1.030); Urine Urobilinogen Negative (Neg - 1+)
[2023-12-16 05:39] LABS: Hematocrit 27.7 % (37.0-47.0); Hemoglobin 8.9 g/dL (12.0-16.0); Mean Corp Hgb Conc. 32.1 g/dL (33.0-37.0); Mean Corpuscular Hgb 24.5 pg (27.0-31.0); Mean Corpuscular Volume 76.1 fL (81.0-99.0); Mean Platelet Volume 8.9 fL (7.4-10.4); Platelet Count 708 10^3/uL (130-400); Red Blood Cell Count 3.64 10^6/uL (4.20-5.40); Red Cell Dist. Width 19.7 % (11.5-14.5); Urine Color Amber; White Blood Cell Count 17.4 10^3/uL (4.8-10.8)
[2023-12-16] MEDS: OFIRMEV 100 IV ×3 (05:39→18:42)
[2023-12-16 06:12] LABS: Blood Urea Nitrogen 68 mg/dl (7-17); Calcium 9.9 mg/dl (8.4-10.2); Carbon Dioxide 29 mmol/L (22-30); Chloride 89 mmol/L (98-107); Estimated Creatinine Clearance 8 ml/min; Glucose 123 mg/dl (70-99); Magnesium 2.3 mg/dl (1.6-2.3); Potassium 4.2 mmol/L (3.5-5.1); Sodium 134 mmol/L (135-145); eGFR 9.53
--- NOTE | 2023-12-16 06:13 | W.PN.INTV ---
Today's Communication / Plan
Recommendations
Continue IV fluids
Maintain maps greater than 65, pressors if needed
Remains on broad-spectrum antibiotics
Tachycardia improved. May not require amiodarone
Patient is Voodoo, does not want transfusion
Nephrology and urology consulted
Assessment
-
73-year-old female with history of radical cystectomy with ileal conduit urinary diversion 2005 for bladder cancer squamous cell. There has been no evidence of recurrence, with stable inguinal lymphadenopathy. Of note she has history of gross
hematuria with recurrence, known extensive staghorn calculus with nephrolithiasis. Patient with thick blood and purulent urine in the ostomy bag which appears to be intermittent, resolves with antibiotic therapy. Most recently was started on
Macrodantin as outpatient now presents with sepsis, tachycardia, hypotension, lethargy. We are asked to help from critical care standpoint 12/15/2023
Septic shock, hypotension
Improved with IV fluids
Back pain
S/P percutaneous nephrostomy tube placement per IR 12/14
Imaging worrisome for emphysematous pyelonephritis
History of nephrolithiasis, large calculi per imaging in the past
Complex renal cysts
Sinus tachycardia
Abnormal EKG
Inferior ST elevation, transient
Incomplete right bundle branch block
Lethargy, mental status changes
Completed with IV fluids
Leukocytosis/anemia
History of recurrent UTI
Recent course of Bactrim November 2023
Possible ileus
NG tube placed in ED
Large bilious volume removed
Large gastric bubble per abdominal imaging
Acute renal insufficiency, creatinine 3.7
Baseline 1.5
Hyponatremia/hyperkalemia
Elevated lactate
Conditions present prior to admission:
Bladder cancer 2005
Squamous cell
Status post radical cystectomy with ileal conduit urinary diversion ([facility])
Follows urology ([facility])
No evidence of recurrence since
Chronic kidney disease, baseline 1.5
Generalized anxiety disorder
Hx of Tardive dyskinesia
Bipolar disorder
Chronic lymphedema
Cachexia
History of multiple falls
Plan/recommendations
At this time, patient appears to be critically ill, but stable
Has not required pressors. Systolic pressure 80s to 90s.
Worsening creatinine noted, percutaneous drainage pus, 40 cc
Abdominal exam much less distended, NG tube in place
Upon placement of NG tube, large bilious output noted, 2.5 L per correspondence
Tachycardia improved
History of chronic urological issues, staghorn calculi, presented with back pain
Recent course of Bactrim as outpatient with purulent output via urostomy bag
Moving forward
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
Nephrostomy tube in place, draining pus
Creatinine noted
Nephrology has been consulted
Continue IV fluids, normal saline, bolus as necessary
Recent UA from 12/06/2023 abnormal. Patient apparently completed course of Bactrim as outpatient, Macrodantin therapy also noted
Currently on Zosyn
EKG at [address] elevation
Repeat EKG at 1541 without any evidence of ST elevation, nonspecific ST abnormalities
Incomplete right lower branch block
Significant ileus noted, large gastric bubble, possible small bowel obstruction per abdominal imaging
Patient states she feels much better presently
It is noted that patient has received amiodarone, Zosyn, calcium, IV saline
Blood pressures have been labile, but overall heading in the right direction, 80s to 90s
Norepinephrine to maintain maps greater than 65
Echocardiogram with normal biventricular function, no significant valvular disease
Suspect possible bowel obstruction
Surgery following. NG tube in place
Abdominal CT without any obvious mass per report
Ileus
Follow electrolytes, follow lactate
Creatinine noted, follow urostomy output
Reviewed with critical care nursing
TCCT 34 min
Subjective Dataa
Subjective Data
Date of Service:
Date of Service: December 16, 2023
Subjective:
Patient remains critically ill. Status post percutaneous nephrostomy tube. Tremulous, overall feels poor but better than admission. Denies chest pain, nausea, abdominal pain
Objective Data
Data Reviewed
Vital Signs / I&O / Oxygen:
Vital Signs
Temp Pulse Resp BP Pulse Ox
97.9 F 104 23 73/56 94
12/16/23 03:27 12/16/23 04:45 12/16/23 04:45 12/16/23 03:30 12/16/23 04:45
Intake and Output
12/14/23 12/15/23 12/16/23
06:59 06:59 06:59
Intake Total 1457.5 / 1457.5
Output Total 695 / 695
Balance 762.5 / 762.5
SaO2 94
Physical Exam
General: Comfortable (Cachectic), Other (Right upper extremity PICC line) and Other (Percutaneous nephrostomy tube with pus)
HEENT: Normocephalic, Anicteric and Moist Mucous Membranes
Cardiovascular: S1-S2, Regular Rhythm, Murmur (n) and Rub (n)
Respiratory: Wheeze (n), Crackles (n) and Rhonchi (n)
GI: Soft, Non Distended, Non Tender and Other (Urostomy intact)
Neurology: Awake, Alert, Oriented and No Motor Deficits (Moves all extremities)
Skin: Cyanosis (n), Jaundice (n) and Rash (n)
Labs/Micro/Reports
Lab Data
12/16/23 05:02
12/16/23 05:02
Laboratory Results
12/15/23
17:14
PT 15.8 H
INR 1.28
--- NOTE | 2023-12-16 06:27 | W.PN.URO.CBU ---
Today's Communication / Plan
-
1 L NS over 2 hours to fluid resuscitate -- d/w RN
will defer to Critical care team otherwise
eventually will need right nephrectomy and left renal stone removal
Assessment / Plan
-
acutely ill with urosepsis
Diagnosis
-
Date of Service: December 16, 2023
-
Patient Diagnosis:
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
Left Renal Stones
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
signs of ongoing sepsis
Subjective
-
appears ill
Objective
-
Vital Signs
Temp Pulse Resp BP Pulse Ox
97.9 F 108 23 84/59 94
12/16/23 03:27 12/16/23 06:17 12/16/23 06:17 12/16/23 06:17 12/16/23 06:17
Intake and Output
12/14/23 12/15/23 12/16/23
06:59 06:59 06:59
Intake Total 1587.5 / 1587.5
Output Total 695 / 695
Balance 892.5 / 892.5
Intake:
IV fluids (Total) 1577.5 / 1577.5
Levo 277.5 / 277.5
Nss 1,000 ml @ 100 mls/hr IV . 1300 / 1300
Q10H CALLIE Rx#:[id number]
Amount instilled into Drain (
Total)
Right Back Placed in IR
Output:
Emesis 450 / 450
Urinary Drain Output (Total) 40 / 40
Right Nephrostomy 40 / 40
Gastrointestinal tube output ( 200 / 200
Total)
[place] Sump 200 / 200
Urostomy output
Laboratory Results
12/16/23 05:02
12/16/23 05:02
Physical Exam
-
General - lethargic
Abdomen - right PCN: low volume of purulent output; urostomy: concentrated urine
[2023-12-16 06:28] LABS: TSH 1.72 uIU/ml (0.47-4.68)
[2023-12-16] MEDS: LEVOPHED 250 IV ×3 (06:39→18:42)
[2023-12-16 06:42] LABS: Urine Mucus Many
[2023-12-16 06:43] LABS: Urine Amorphous Seen; Urine Bacteria Many (Negative); Urine Red Blood Cell >100 /HPF (0-2); Urine White Cell >100 /HPF (0-5)
[2023-12-16 06:45] LABS: Urine Squamous Cell SEEN /LPF (Few)
[2023-12-16 06:47] LABS: Vitamin B12 951 pg/ml (239-931)
[2023-12-16] MEDS: NSS 1000 IV ×3 (07:00→16:37)
--- NOTE | 2023-12-16 08:15 | PTCARENOTE ---
Received pt @ change of shift. Oriented x 3, forgetful @ x's; anxious; tremulous/stammer speech @ x's. SR/ST on monitor. SpO2 95% on RA. Hypoactive BS, abd round/distended/firm. L nare NGT to LIS w mod-lg green output. Strict NPO status
maintained. R upper urostomy w small yellow/bloody tinged/milky urine; R nephrostomy scant w purulent/janene urine. R DL PICC w IVF and levo gtt- see flow sheet. Pt. repositioned per protocol. Instructed on how to report care concerns. Call castellanos
in reach. Bed alarm active.
--- NOTE | 2023-12-16 08:31 | W.CON.NEPH ---
Consultation
-
Date/Time Consultation Requested: 12/16/2023 8:00 AM
Date/Time Consultation Performed: 12/16/2023 8:30 AM
Requesting Provider: Nitin Todd
Performing Provider: Dr. Tesfaye
Reason for Consultation: Acute kidney Injury
Medical History
-
Chief Complaint: GUI
History of Present Illness:
Patient is a 73-year-old female who was brought to [facility] because of presyncope. The patient has a history of hypertension maintained on lisinopril. The patient has a prior history of bladder cancer with radical cystectomy in 2005 and
now has an indwelling urostomy. She has a history of CKD with a baseline creatinine of 1.5 the patient apparently has a visiting nurse at home. She was being treated with Macrobid as outpatient for UTI. ED records suggest complaints of back pain.
However, to me patient stated that she was feeling fatigued. She also admits to having a fall in the last week, she does have a history of multiple falls per records. Upon arrival to [facility], the patient was afebrile, pulse 147,
breathing at 22, blood pressure 70/44, 98%.
History of gross hematuria in the past, intermittent. History of frequent falls. She does have visiting nurse, patient is unable to change her own ostomy bag.
Prior outpatient urology correspondence suggests episodic drainage of purulent urine, last seen by urology 11/22/2023 Yazmin). On presentation to the hospital she was noted to be hemodynamically unstable with fever and acute renal failure. Her
creatinine is now up to 4.6 and nephrology was consulted.
Past Medical History
Hypertension, hyperlipidemia, history of bladder cancer, chronic kidney disease stage III , history of nephrolithiasis, and complex renal cysts, anemia, history of essential tremors, tardive dyskinesia, bipolar disorder, chronic lymphedema, history
of anemia on iron therapy. History of hysterectomy/BSO, cataract surgery, breast reduction. History of cystectomy with ileal conduit in 2005
Social History
Tobacco: Non-Smoker
Alcohol: None
Drug: None
Family History
no ckd
Allergies / Home Medications
Allergy/AdvReac Type Severity Reaction Status Date / Time
No Known Allergies Allergy Unverified 10/31/22 14:10
�Medication �Instructions �Recorded �Confirmed �Type
alendronate 70 mg tablet 70 mg PO WEEKLY 12/15/23 12/15/23 History
aspirin 81 mg tablet,delayed 81 mg PO DAILY 12/15/23 12/15/23 History
release
latanoprost 0.005 % eye drops 1 drp BOTH EYES QPM 12/15/23 12/15/23 History
lisinopril 20 mg tablet 20 mg PO DAILY 12/15/23 12/15/23 History
nitrofurantoin 100 mg PO BID 12/15/23 12/15/23 History
monohydrate/macrocrystals 100 mg
capsule
ondansetron HCl 8 mg tablet 8 mg PO Q8HPRN PRN nausea 12/15/23 12/15/23 History
sennosides 8.6 mg tablet (Senokot) 8.6 mg PO BIDPRN PRN constipation 12/15/23 12/15/23 History
timolol maleate 0.5 % eye drops 1 drp BOTH EYES DAILY 12/15/23 12/15/23 History
Review of Systems
-
All other systems: Negative unless noted
Constitutional: Fatigue
EENT: Other (NG tube)
Respiratory: No Symptoms
Cardiac: No Symptoms
Abdomen/GI: Abdominal Pain
: Other (right PCN/Urostomy)
Musculoskeletal: Edema
Skin: No Symptoms
Neurological: No Symptoms
Endocrine: No Symptoms
Hematologic/Lymphatic: No Symptoms
Physical Exam
Vital Signs
Vital Signs
Temp Pulse Resp BP Pulse Ox
98.1 F 108 23 84/59 94
12/16/23 07:51 12/16/23 06:17 12/16/23 06:17 12/16/23 06:17 12/16/23 06:17
Lab Results
12/16/23 05:02
12/16/23 05:02
WBC 17.4 10^3/uL (4.8-10.8) H 12/16/23 05:02
RBC 3.64 10^6/uL (4.20-5.40) L 12/16/23 05:02
Hgb 8.9 g/dL (12.0-16.0) L 12/16/23 05:02
Hct 27.7 % (37.0-47.0) L 12/16/23 05:02
Plt Count 708 10^3/uL (130-400) H 12/16/23 05:02
Sodium 134 mmol/L (135-145) L 12/16/23 05:02
Potassium 4.2 mmol/L (3.5-5.1) 12/16/23 05:02
Chloride 89 mmol/L (98-107) L 12/16/23 05:02
Carbon Dioxide 29 mmol/L (22-30) 12/16/23 05:02
BUN 68 mg/dl (7-17) H 12/16/23 05:02
Creatinine 4.6 mg/dL (0.6-1.0) H* 12/16/23 05:02
eGFR 9.53 12/16/23 05:02
Glucose 123 mg/dl (70-99) H 12/16/23 05:02
Calcium 9.9 mg/dl (8.4-10.2) 12/16/23 05:02
Albumin 3.9 g/dl (3.5-5.0) 12/15/23 13:58
Physical Exam
General: AOx3, Nontoxic , NAD
HEENT: PERRL, EOMI, Anicteric, NGT,Conjunctivae Clear, Ear/Nose Intact, Hearing Normal, Oropharynx Clear/dry Dentition Intact, Facial Symmetry, Neck Supple, Neck: Trachea Midline, No JVD and No Thyromegaly, no Bruits
Respiratory: Clear to auscultation bilaterally with normal lung exersion
Cardiac: S1/S2 and Regular Rate/Rhythm tachy
Breast: Deferred by me
Abdomen: Soft, Nontender, Nondistended, decreased Bowel Sounds and No Hepatosplenomegaly
Rectal: Deferred by Provider
Genito-urinary: No Costovertebral Tenderness
Extremities: No Clubbing, No Cyanosis and some non pitting lymph-Edema
Skin: No Rash or open lesions
Neuro: Nonfocal/Grossly Intact, CN II-XII (Intact) and Strength (Musculoskeletal exam 5 out of 5 both upper and lower extremities)
Hematologic/Lymphatic: No Cervical Lymphadenopathy, No Submandibular Lymphadenopathy and No Supraclavicular Lymphadenopathy
Psych: Mood/afflect pleasant,
Vascular: plus 1 pedal and radial pulses
Data Reviewed
-
Radiology: Image Personally Visualized and interpreted (Chest x-ray left lower lobe opacification)
Medical Tests (Nuc Med, Echo etc): Image Personally Visualized and interpreted (EKG reviewed atrial fibrillation with rapid ventricular)
Labs: Labs Reviewed by me (CBC BMP)
Old Records: Reviewed (Creatinine reviewed from 07/26/2023 creatinine 1.8)
Critical Care Time (in minutes): 45 mintues
Assessment/Plan
-
Impression:
Sepsis with SBO and right pyelonephritis
Acute kidney injury (baseline CKD ~1.5)
Status post right percutaneous nephrostomy tube placement 12/15/2023
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
Ileal conduit status post cystectomy in 2005
History of hypertension
Anemia
A-fib with RVR
Thrombocytosis
Lactic acidosis
Hypocalcemia
Plan:
GUI:
-Likely prerenal in precipitated in setting of sepsis with hemodynamic collapse and possible obstructive component in setting of right pyelonephritis status post right percutaneous nephrostomy tube placement
-Remains on norepinephrine pressor support to keep MAP 65 or greater
-IV fluids provided
-Antihypertensives including lisinopril currently
-Closely monitor urostomy and right PCN output
-Zosyn renally dosed
-Maintain isotonic saline for blood pressure support
-No acute dialysis requirement
-Patient is critically ill requiring pressor support in the setting of advancing acute kidney
Total Time Spent with Patient (in minutes): 45-minutes
[2023-12-16] MEDS: HEPARIN 5000 UNITS SC (09:03)
[2023-12-16] MEDS: TIMOPTIC 0.5% OPHTHALMIC SOLUTION 1 DROP BOTH EYES (09:04)
[2023-12-16] MEDS: FLEET MINERAL OIL ENEMA 133 ML RECTAL (09:09)
--- NOTE | 2023-12-16 09:20 | W.PN.CD ---
Today's Communication / Plan
-
start IV heparin
monitor tele
Impression / Plan
-
73 yo female with h/o bladder cancer, urostomy, HTN admitted with septic shock. She has SBO and also right pyelonephritis. She is on pressors. We are consulted for A fib with RVR.
Paroxysmal A fib
-back in sinus spontaneously
-if recurs, will start IV amiodarone given hypotension and on pressors
-CHADS2-VASC = 3. Discussed with urology. Will start IV heparin.
Abnormal EKG - transient inferior ST elevation on EKG noted.
- mildly elevated troponin, and no chest pain
-echo: EF 55-60%, aortic sclerosis, mild AR, nl RV
GUI - acute on chronic CKD.
- creatinine 4.6: nephrology consulted
SBO - acute.
- NG tube in place, drained 2L green fluid in the ER.
- surgery consulted.
Right pyelonephritis - acute.
- urostomy bag.
- may need nephrectomy: urology consulted
CCT 32 minutes
Physical Exam
Vital Signs/Labs
Vital Signs
Temp Pulse Resp BP Pulse Ox
98.1 F 108 23 84/59 94
12/16/23 07:51 12/16/23 06:17 12/16/23 06:17 12/16/23 06:17 12/16/23 06:17
12/15/23 12/16/23 12/17/23
06:59 06:59 06:59
Actual Weight 50.3 kg
12/16/23 05:02
12/16/23 05:02
PT 15.8 Sec (11.4-14.6) H 12/15/23 17:14
INR 1.28 12/15/23 17:14
Magnesium 2.3 mg/dl (1.6-2.3) 12/16/23 05:02
TSH 1.72 uIU/ml (0.47-4.68) 12/16/23 05:02
LAB Results
12/15/23 12/15/23 12/15/23
13:58 18:31 21:17
Troponin I 0.014 Cancelled 0.046 H* D
12/16/23
05:02
Troponin I 0.060 H* D
Physical Exam
Constitutional: No acute distress
EENT: Moist mucous membranes
Cardiovascular: Rhythm & rate is regular, Pedal edema is absent, JVD pressure is normal and Systolic murmur absent
Respiratory: Respiratory effort normal and Lungs clear to auscul.
GI: Distention present
Neuro/Psych: AO x 3
Data Reviewed
-
Date of Service: December 16, 2023
EKG: Other (tele: A fib --> sinus tachycardia)
Echo: Report Reviewed by me
Labs: Labs Reviewed by me
--- NOTE | 2023-12-16 10:00 | CM ---
CM following re: discharge planning.
Reviewed pt's chart, met with pt.
Pt is a 73 year old female, admitted with primary dx of Sepsis with SBO and right pyelonephritis, Status post right percutaneous nephrostomy tube placement 12/15/2023.
Pt reports she lives alone in a mobile home, has a cat and per pt her cat is taking care of by her neighbor Mark. Pt reports she does not have immediate family here, her niece and a sister live in [place]. Pt reports she ambulates with a walker at
baseline, had VN services in the past and pt cannot recall the name of VN provider. Pt reports she had some falls at home and now she is afraid even to stand.
PT and OT will evaluate the pt to determine a level of care at discharge. Pt reports she has never been at a SNF and if she needs to go she will prefer [facility].
PCP: Aracelis Brito
[facility]arm[facility]: [facility]
D/c plan: most likely SNF, awaiting PT/OT evaluations and recommendations. If SNF recommended, pt preferred [facility].
CM will follow with discharge plan updates as hospitalization progresses
[2023-12-16 10:22] LABS: Hematocrit 24.7 % (37.0-47.0); Hemoglobin 7.9 g/dL (12.0-16.0); Mean Corpuscular Hgb 24.2 pg (27.0-31.0); Mean Corpuscular Volume 75.5 fL (81.0-99.0); Mean Platelet Volume 8.8 fL (7.4-10.4); Platelet Count 533 10^3/uL (130-400); Red Blood Cell Count 3.27 10^6/uL (4.20-5.40); Red Cell Dist. Width 19.8 % (11.5-14.5); White Blood Cell Count 14.2 10^3/uL (4.8-10.8)
[2023-12-16 10:46] LABS: APTT 33.5 Sec (23.4-35.0)
[2023-12-16] MEDS: NSS (PRESERVATIVE FREE) 10 ML IV (10:56)
[2023-12-16] MEDS: PROTONIX IV 40 MG IV (10:56)
--- NOTE | 2023-12-16 11:25 | W.PN.HOSP.TC ---
Today's Communication/Plan
-
Continue IV fluids
Pressors
IV antibiotics
Await cultures
Assessment / Plan
Assessment / Plan
Seen and examined in ICU
Still has mild right-sided back pain
No chest pain or shortness of breath
Awake alert
Cardiovascular system S1-S2 regular
Chest few rales right base
Abdomen soft right-sided lumbar area and right CVA tenderness
No pedal edema
# Septic Shock
Secondary to emphysematous pyelonephritis
Continue Zosyn
IVF
Pressors-wean as tolerated
Picc line
Hold lisinopril
Recently completed Bactrim as outpatient
# TME resolved
# Small bowel obstruction hscc-pdrkc-pyo CT
Surgery feels this is likely ileus because of emphysematous pyelonephritis
Keep n.p.o. with NG tube
IV fluids
Surgical consultation requested
Conservative management per surgery
# Lactic acidosis-follow
# Emphysematous pyelonephritis right side
Right-sided percutaneous nephrostomy tube placed on 12/15/2023 by interventional radiology-purulent drainage
Blood and urine cultures-pending urine from percutaneous nephrostomy tube pending
Broad-spectrum antibiotics-Zosyn
Urology consultation appreciated
May need nephrectomy on the right side eventually
White count better
# Paroxysmal atrial fibrillation-currently in sinus rhythm
Started on heparin drip ,continue amiodarone
Need to be cautious with anemia
# Elevated troponin-nonischemic myocardial injury follow till it peaks
# Anemia-check iron studies
No evidence of iron or B12 deficiency
Watch hemoglobin closely with heparin drip
# Thrombocytosis-likely secondary to infection follow
# Acute kidney injury on CKD-likely stage IIIB at least-nephrology consulted
Possibly prerenal or ATN in the setting of sepsis
Hold lisinopril
Continue IV fluids
Recently completed a course of Bactrim as outpatient
# Hyponatremia-likely hypovolemic. IV fluids to be continued in the setting of hypotension
Creatinine improving
# Hyperkalemia-repeat BMP later tonight
# Lactic acidosis-follow
# Hypercalcemia-likely dehydration related. Resolved
# Hypertension-hold lisinopril
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 Arce
# Anxiety and schizophrenia-Per discussion with niece however patient denies schizophrenia
# Developmental Delay
# Visual impairment -? Glaucoma- Continue Eye drops latanoprost and timolol
# Tardive dyskinesia
# Essential tremors
# DVT prophylaxis-Lovenox
# CODE STATUS-Full code per D/W Niece (Pt never fills out paper work or commit)
Discussed with graduate student, surgery, nephrology, cardiology
Called niece-went to message. Left a message.
Total Critical Care Time 38 minutes. I was immediately available to the patient and staff. I personally examined, reviewed labs, diagnostic images/reports, interpretations, treatment plans, discussed patient care with other providers , entered
orders as appropriate and documented the medical record.
Anticipated Discharge: > 48 hours
Subjective/Interval History
-
Date of Service: December 16, 2023
Objective Data
-
Labs:
Laboratory Results
12/16/23 12/16/23
05:02 10:12
WBC 17.4 H 14.2 H
Hgb 8.9 L 7.9 L
Hct 27.7 L 24.7 L
Plt Count 708 H 533 H D
APTT 33.5
Sodium 134 L
Potassium 4.2
Chloride 89 L
Carbon Dioxide 29
BUN 68 H
Creatinine 4.6 H*
Glucose 123 H
Calcium 9.9
Vital Signs:
Vital Signs
Temp Pulse Resp BP Pulse Ox
98.1 F 89 19 88/54 95
12/16/23 07:51 12/16/23 11:15 12/16/23 11:15 12/16/23 11:00 12/16/23 11:21
I&O
12/15/23 12/16/23 12/17/23
06:59 06:59 06:59
Intake Total 1587.5 / 1717.5 695.0 / 695.0
Output Total 695 / 695 900 / 900
Balance 892.5 / 1022.5 -205.0 / -205.0
[2023-12-16] MEDS: HEPARIN 25000 UNITS/250 ML IV (11:41)
--- NOTE | 2023-12-16 12:19 | PTCARENOTE ---
Heparin gtt initiated per orders- see flow sheet. Pt. c/o mild back pain, admin PRN Tylenol. Pt.'s niece, Lisbeth, updated via phone. Call castellanos remains w in reach.
[2023-12-16 12:35] LABS: Lactic Acid 1.2 mmol/L (0.7-2.0)
[2023-12-16 12:52] LABS: Troponin I 0.048 ng/ml
[2023-12-16] MEDS: LIDOCAINE 4% PATCH 1 PATCH TOPICAL (15:37)
[2023-12-16] MEDS: ROXICODONE 5 MG PO (15:37)
[2023-12-16 19:03] LABS: APTT 35.4 Sec (23.4-35.0)
--- NOTE | 2023-12-16 20:30 | PTCARENOTE ---
Pt c/o pain in back, despite repositioning in bed. Carlotta order changed to IV dilaudid 2/2 almost 2L NGT output on previous shift. Pt resting comfortably. Urostomy with 75 cc cloudy urine. Nephro tube draining murky cloudy drainage. Will monitor.
[2023-12-16] MEDS: XALATAN OPHTHALMIC SOLUTION 1 DROP BOTH EYES (21:12)
[2023-12-16] MEDS: DILAUDID 0.25 MG IV (21:12)
[2023-12-17] VITALS (33 sets, daily range): BP systolic 85–125; BP diastolic 54–88
--- NOTE | 2023-12-17 00:30 | PTCARENOTE ---
Pt turned/repositioned, updated on plan of care. Pt in good spirits. Still talking in circles from time to time, becoming tearful about her cats. Emotional support provided. Heparin gtt as ordered. Will monitor.
[2023-12-17 01:40] LABS: Hematocrit 24.1 % (37.0-47.0); Hemoglobin 7.3 g/dL (12.0-16.0); Mean Corp Hgb Conc. 30.3 g/dL (33.0-37.0); Mean Corpuscular Volume 79.3 fL (81.0-99.0); Mean Platelet Volume 8.9 fL (7.4-10.4); Platelet Count 439 10^3/uL (130-400); Red Blood Cell Count 3.04 10^6/uL (4.20-5.40); Red Cell Dist. Width 19.7 % (11.5-14.5); White Blood Cell Count 11.9 10^3/uL (4.8-10.8)
[2023-12-17] MEDS: NSS 1000 IV ×4 (01:40→19:21)
[2023-12-17 02:59] LABS: Blood Urea Nitrogen 63 mg/dl (7-17); Carbon Dioxide 23 mmol/L (22-30); Chloride 95 mmol/L (98-107); Estimated Creatinine Clearance 8 ml/min; Glucose 119 mg/dl (70-99); Potassium 3.4 mmol/L (3.5-5.1); Sodium 132 mmol/L (135-145); eGFR 9.29
[2023-12-17] MEDS: ZOSYN 50 IV ×4 (05:09→21:18)
[2023-12-17] MEDS: LEVOPHED 250 IV ×4 (05:10→21:21)
[2023-12-17] MEDS: OFIRMEV 100 IV (05:47)
--- NOTE | 2023-12-17 06:39 | W.PN.INTV ---
Addendum entered and electronically signed by Kit Mendiola MD 12/17/23 09:28:
Of note. Patient is Jain. Will need to clarify whether she will accept transfusion if needed
Maintain active type and screen for now
Repeat hemoglobin noted for later p.m.
Original Note:
Today's Communication / Plan
Recommendations
Continue with IV fluids
Urine output minimal, oxygenation stable
NG output continues
Urostomy output pus
Remains on Zosyn
Heparin and amiodarone therapy continue per cardiology
Wean norepinephrine as able
Check a.m. random cortisol level
Assessment
-
73-year-old female with history of radical cystectomy with ileal conduit urinary diversion 2005 for bladder cancer squamous cell. There has been no evidence of recurrence, with stable inguinal lymphadenopathy. Of note she has history of gross
hematuria with recurrence, known extensive staghorn calculus with nephrolithiasis. Patient with thick blood and purulent urine in the ostomy bag which appears to be intermittent, resolves with antibiotic therapy. Most recently was started on
Macrodantin as outpatient now presents with sepsis, tachycardia, hypotension, lethargy. We are asked to help from critical care standpoint 12/15/2023
Septic shock, hypotension
Requiring pressors
Back pain
S/P percutaneous nephrostomy tube placement per IR 12/14
Imaging worrisome for emphysematous pyelonephritis
History of nephrolithiasis, large calculi per imaging in the past
Complex renal cysts
Sinus tachycardia
Abnormal EKG
Inferior ST elevation, transient
Incomplete right bundle branch block
Lethargy, mental status changes
Improved with IV fluids
Leukocytosis/anemia
History of recurrent UTI
Recent course of Bactrim November 2023
Possible ileus
NG tube placed in ED
Large bilious volume removed
Large gastric bubble per abdominal imaging
Acute renal insufficiency, creatinine 3.7
Baseline 1.5
Hyponatremia/hyperkalemia
Elevated lactate
Paroxysmal atrial fibrillation, now on heparin
Conditions present prior to admission:
Bladder cancer 2005
Squamous cell
Status post radical cystectomy with ileal conduit urinary diversion (Epstein)
Follows urology (Yazmin)
No evidence of recurrence since
Chronic kidney disease, baseline 1.5
Generalized anxiety disorder
Hx of Tardive dyskinesia
Bipolar disorder
Chronic lymphedema
Cachexia
History of multiple falls
Plan/recommendations
At this time, patient appears to be critically ill, but stable
Remains on norepinephrine, 12 mcg.
Worsening creatinine noted, percutaneous drainage pus, 40 cc
Abdominal exam much less distended, NG tube in place, significant output continues, -1700 via NG tube
Tachycardia improved, atrial fibrillation noted. Patient now on heparin therapy per cardiology
History of chronic urological issues, staghorn calculi, presented with back pain
Recent course of Bactrim as outpatient with purulent output via urostomy bag
Moving forward
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
Nephrostomy tube in place, draining pus
Remains on Zosyn therapy
Creatinine noted, 4.7, hopefully has plateaud
Nephrology following
Continue IV fluids, normal saline, bolus as necessary
Recent UA from 12/06/2023 abnormal. Patient apparently completed course of Bactrim as outpatient, Macrodantin therapy also noted
Urine output 145 cc
Remains on normal saline at 150/h
Per urology, patient will eventually require nephrectomy
On admission, EKG at [address] elevation
Repeat EKG at 1541 without any evidence of ST elevation, nonspecific ST abnormalities
Incomplete right lower branch block
Significant ileus noted, large gastric bubble, possible small bowel obstruction per abdominal imaging
Patient states she feels much better presently
Norepinephrine to maintain maps greater than 65
Echocardiogram with normal biventricular function, no significant valvular disease
Patient now on heparin and amiodarone therapy for atrial fibrillation
Cardiology following
Suspect possible bowel obstruction
Surgery following. NG tube in place, significant output continues
Abdominal CT without any obvious mass per report
Ileus
Continue with IV fluids
Presently, patient denies pain. Dilaudid as needed, oxycodone as needed
DVT prophylaxis: On heparin drip for atrial fibrillation
GI prophylaxis: Remains on Protonix
Reviewed with critical care nursing
TCCT 31 min
Subjective Dataa
Subjective Data
Date of Service:
Date of Service: December 17, 2023
Subjective:
Patient complaining of weakness and fatigue but overall feels improved since admission. Denies chest pain, nausea. Denies abdominal pain. Remains critically ill on pressors, norepinephrine 12 mcg. She is also on heparin therapy
Objective Data
Data Reviewed
Vital Signs / I&O / Oxygen:
Vital Signs
Temp Pulse Resp BP Pulse Ox
97.6 F 84 12 101/59 95
12/17/23 05:55 12/17/23 05:00 12/17/23 05:00 12/17/23 05:00 12/17/23 05:00
Intake and Output
12/15/23 12/16/23 12/17/23
06:59 06:59 06:59
Intake Total 1587.5 / 1717.5 4307.5 / 4307.5
Output Total 695 / 695 2230 / 2230
Balance 892.5 / 1022.5 2077.5 / 2077.5
SaO2 95
Physical Exam
General: Comfortable (Cachectic), Other (Right upper extremity PICC line) and Other (Percutaneous nephrostomy tube with pus)
HEENT: Normocephalic, Anicteric and Moist Mucous Membranes
Cardiovascular: S1-S2, Regular Rhythm, Murmur (n) and Rub (n)
Respiratory: Wheeze (n), Crackles (n) and Rhonchi (n)
GI: Soft, Non Distended, Non Tender, NG Tube and Other (Urostomy intact)
Neurology: Awake, Alert and No Motor Deficits (Moves all extremities, generally weak)
Skin: Cyanosis (n), Jaundice (n) and Rash (n)
Labs/Micro/Reports
Lab Data
12/17/23 01:21
12/17/23 01:22
Laboratory Results
12/16/23 12/16/23 12/17/23
18:41 01:22
APTT 33.5 35.4 H 42.0 H
Microbiology
12/15/23 14:39 Blood/Venous Blood Culture - Preliminary
No Growth in 24 hours- Final report to follow
12/15/23 13:58 Blood/Venous Blood Culture - Preliminary
No Growth in 24 hours- Final report to follow
12/15/23 18:31 Urine Urine Culture - Preliminary
[2023-12-17] MEDS: KCL 160 MEQ IV (07:11)
[2023-12-17] MEDS: PROTONIX IV 40 MG IV (08:27)
[2023-12-17] MEDS: TIMOPTIC 0.5% OPHTHALMIC SOLUTION 1 DROP BOTH EYES (08:27)
[2023-12-17] MEDS: NSS (PRESERVATIVE FREE) 10 ML IV (08:27)
--- NOTE | 2023-12-17 08:27 | W.PN.URO.CBU ---
Today's Communication / Plan
-
no new input urologically
Assessment / Plan
-
acutely ill with urosepsis -- Klebsiella XGP of right kidney
non-obstructing left renal stones
improved urine output but still oliguric
Diagnosis
-
Date of Service: December 17, 2023
-
Patient Diagnosis:
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
Left Renal Stones
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
signs of ongoing sepsis
Objective
-
Vital Signs
Temp Pulse Resp BP Pulse Ox
97.6 F 74 13 104/59 96
12/17/23 05:55 12/17/23 07:00 12/17/23 07:00 12/17/23 06:30 12/17/23 07:00
Intake and Output
12/16/23 12/17/23 12/18/23
06:59 06:59 06:59
Intake Total 1587.5 / 1717.5 4518.5 / 4518.5
Output Total 695 / 695 2230 / 2230
Balance 892.5 / 1022.5 2288.5 / 2288.5
Intake:
IV fluids (Total) 1577.5 / 1707.5 4158.5 / 4158.5
Levo 277.5 / 307.5 1012.5 / 1012.5
Nss 1,000 ml @ 150 mls/hr IV . 1300 / 1400 3000 / 3000
Q6H40M CALLIE Rx#:[id number]
heparin 146 / 146
IV piggybacks 300 / 300
Amount instilled into Drain (
Total)
Right Back Placed in IR
Amount instilled into GI Tube ( 60 / 60
Total)
[place] Sump 60 / 60
Output:
Emesis 450 / 450
Urinary Drain Output (Total)
Right Nephrostomy
Gastrointestinal tube output ( 200 / 200 1700 / 1700
Total)
[place] Sump 200 / 200 1700 / 1700
Urostomy output 5 / 5 445 / 445
Laboratory Results
12/17/23 01:21
12/17/23 01:22
Physical Exam
-
General - no acute distress, chronically ill appearing; NGT in place
Right PCN: minimal output
Urostomy - normal
--- NOTE | 2023-12-17 08:47 | W.PN.NEPH.PH ---
Today's Communication / Plan
-
follow bmp
maintain IVFs
no HD
antibiotics
replete K
Assessment/Plan
-
Impression:
Uro-Sepsis with SBO and right pyelonephritis
Acute kidney injury (baseline CKD ~1.5)
Status post right percutaneous nephrostomy tube placement 12/15/2023
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
Ileal conduit status post cystectomy in 2005
History of hypertension
Anemia
A-fib with RVR
Thrombocytosis
Lactic acidosis
Hypocalcemia
Plan:
GUI:
-Likely prerenal in precipitated in setting of sepsis with hemodynamic collapse and possible obstructive component in setting of right pyelonephritis status post right percutaneous nephrostomy tube placement
-GUI worsening to 4.6 with rise of creatinine may be plateauing
-non oliguric
-Remains on norepinephrine pressor support to keep MAP 65 or greater
-IV fluids provided
-Antihypertensives including lisinopril currently
-Closely monitor urostomy and right PCN output
-Zosyn renally dosed
-Maintain isotonic saline for blood pressure support
-No acute dialysis requirement
-Patient is critically ill requiring pressor support in the setting of advancing acute kidney
Total Time Spent with Patient (in minutes): 31 minutes
-
-
Date of Service: December 17, 2023
CC / HPI / ROS
-
Chief Complaint:
GUI
History of Present Illness:
GUI with creatinine up to 4.7
Hemodynamically labile
On heparin in setting of A-fib
Review of Systems:
Nonoliguric via urostomy
NG tube with output of 1700 cc
Afebrile
No chest pain or shortness of breath
right PCN
Labs
-
Labs:
WBC 11.9 10^3/uL (4.8-10.8) H 12/17/23 01:21
RBC 3.04 10^6/uL (4.20-5.40) L 12/17/23 01:21
Hgb 7.3 g/dL (12.0-16.0) L 12/17/23 01:21
Hct 24.1 % (37.0-47.0) L 12/17/23 01:21
Plt Count 439 10^3/uL (130-400) H 12/17/23 01:21
Sodium 132 mmol/L (135-145) L 12/17/23 01:22
Potassium 3.4 mmol/L (3.5-5.1) L 12/17/23 01:22
Chloride 95 mmol/L (98-107) L 12/17/23 01:22
Carbon Dioxide 23 mmol/L (22-30) 12/17/23 01:22
BUN 63 mg/dl (7-17) H 12/17/23 01:22
Creatinine 4.7 mg/dL (0.6-1.0) H* 12/17/23 01:22
eGFR 9.29 12/17/23 01:22
Glucose 119 mg/dl (70-99) H 12/17/23 01:22
Calcium 8.0 mg/dl (8.4-10.2) L D 12/17/23 01:22
Albumin 3.9 g/dl (3.5-5.0) 12/15/23 13:58
Physical Exam
-
Vital Signs:
Vital Signs
Temp Pulse Resp BP Pulse Ox
97.7 F 74 13 104/59 96
12/17/23 07:28 12/17/23 07:00 12/17/23 07:00 12/17/23 06:30 12/17/23 07:00
Cardiovascular:: Irregular rate and rhythm
Lung Excursion:: Normal
Abdomen:: Distended
Bowel Sounds:: Decreased
Extremity Edema:: None: Bilateral:
Condon Catheter: No
Other Findings::
HEENT: NGT
: urostomy
[2023-12-17] MEDS: DILAUDID 0.25 MG IV ×3 (09:00→19:21)
--- NOTE | 2023-12-17 09:10 | PTCARENOTE ---
pt aaox3. anxious about current condition. pt states 8/10 pain in back at drain site. pain med given as ordered. pt repositioned in bed. urostomy stoma pink draining cloudy yellow. nephrostomy tube draining cloudy zazueta. breath sounds diminished
at base. ngt in place. placement checked. draining green
--- NOTE | 2023-12-17 09:14 | W.PN.HOSP.TC ---
Today's Communication/Plan
-
Antibiotics
Watch hemoglobin and repeat hemoglobin later today
Watch creatinine
Await return of bowel function
Assessment / Plan
Assessment / Plan
Seen and examined in ICU
Still has mild right-sided back pain
No chest pain or shortness of breath
Awake alert
Cardiovascular system S1-S2 regular
Chest few rales right base
Abdomen soft right-sided lumbar area and right CVA tenderness, No BS
No pedal edema
# Septic Shock
Secondary to emphysematous pyelonephritis
Continue Zosyn
Blood Cx neg
Urine CX pending
Previous Klebsiella sensitive to Zosyn
IVF-NSS
Pressors-wean as tolerated
Hold lisinopril
Recently completed Bactrim as outpatient
# Hypokalemia-replaced
# TME resolved
# Small bowel obstruction [id number] CT
Surgery feels this is likely ileus because of emphysematous pyelonephritis
Keep n.p.o. with NG tube
No bowel movement with enema
IV fluids
Conservative management per surgery
# Lactic acidosis-Normalized.
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
Nephrolithiasis bilaterally with staghorn calculus 1.7 cm left kidney.
Right-sided percutaneous nephrostomy tube placed on 12/15/2023 by interventional radiology-purulent drainage.
Blood and urine cultures-pending urine from percutaneous nephrostomy tube pending.
Broad-spectrum antibiotics-Zosyn.
Urology consultation appreciated.
May need nephrectomy on the right side eventually.
White count better.
# Paroxysmal atrial fibrillation-currently in sinus rhythm.
Started on heparin drip ,continue Amiodarone.
Need to be cautious with Anemia.
# Elevated troponin-nonischemic myocardial injury
# Anemia-Due to chronic disease
No evidence of iron or B12 deficiency
Watch hemoglobin closely with heparin drip
Rpt this afternoon
# Thrombocytosis-likely secondary to infection follow-Improving
# Acute kidney injury on CKD-likely stage IIIB at least-nephrology consulted
Possibly prerenal or ATN in the setting of sepsis
Hold lisinopril
Continue IV fluids
Recently completed a course of Bactrim as outpatient
# Hyponatremia-likely hypovolemic. IV fluids to be continued in the setting of hypotension
Sodium stable
Needs Fluids as NPO
# Hypercalcemia-likely dehydration related. Resolved
# Hypertension-hold lisinopril
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 Arce
# Anxiety and schizophrenia-Per discussion with niece however patient denies schizophrenia
# Developmental Delay
# Visual impairment -? Glaucoma- Continue Eye drops latanoprost and timolol
# Tardive dyskinesia
# Essential tremors
# DVT prophylaxis-Lovenox
# CODE STATUS-Full code per D/W Niece (Pt never fills out paper work or commit)
Discussed with burial vault setter, surgery, nephrology, cardiology
D/W RN
Patient's niece updated in detail about patient's condition, renal function, urology recommendations, bowel obstruction and also mentioned that she may need dialysis in future. Niece stated that she saw this coming.
Total Critical Care Time 38 minutes. I was immediately available to the patient and staff. I personally examined, reviewed labs, diagnostic images/reports, interpretations, treatment plans, discussed patient care with other providers , entered
orders as appropriate and documented the medical record.
Anticipated Discharge: > 48 hours
Subjective/Interval History
-
Date of Service: December 17, 2023
Objective Data
-
Labs:
Laboratory Results
12/17/23 12/17/23 12/17/23
01:21 01:22 08:43
WBC 11.9 H
Hgb 7.3 L
Hct 24.1 L
Plt Count 439 H
APTT 42.0 H Pending
Sodium 132 L
Potassium 3.4 L
Chloride 95 L
Carbon Dioxide 23
BUN 63 H
Creatinine 4.7 H*
Glucose 119 H
Calcium 8.0 L D
Vital Signs:
Vital Signs
Temp Pulse Resp BP Pulse Ox
97.7 F 67 14 98/88 97
12/17/23 07:28 12/17/23 09:00 12/17/23 09:00 12/17/23 08:45 12/17/23 09:00
I&O
12/16/23 12/17/23 12/18/23
06:59 06:59 06:59
Intake Total 1587.5 / 1717.5 4518.5 / 4723.5 615 / 615
Output Total 695 / 695 2230 / 2230 300 / 300
Balance 892.5 / 1022.5 2288.5 / 2493.5 315 / 315
[2023-12-17 09:19] LABS: APTT 53.9 Sec (23.4-35.0)
--- NOTE | 2023-12-17 09:30 | W.PN.GS2 ---
Today's Communication / Plan
-
Maintain NGT until her GI tract functions.
No plans for surgery.
Assessment / Plan
-
Ileus secondary to urosepsis.
Subjective Data
-
Date of Service: December 17, 2023
No flatus or bowel movement. Abdominal discomfort the same. She is complaining of a dry mouth (sips and ice chips were ordered).
Objective Data
-
Intake and Output
12/16/23 12/17/23/
06:59 06:59 06:59
Intake Total 1587.5 / 1717.5 4518.5 / 4723.5 615 / 615
Output Total 695 / 695 2230 / 2230 300 / 300
Balance 892.5 / 1022.5 2288.5 / 2493.5 315 / 315
Intake:
IV fluids (Total) 1577.5 / 1707.5 4158.5 / 4363.5 615 / 615
Levo 277.5 / 307.5 1012.5 / 1057.5 135 / 135
Nss 1,000 ml @ 150 mls/hr IV . 1300 / 1400 3000 / 3150 450 / 450
Q6H40M [facility] Rx#:[id number]
heparin 146 / 156 30 / 30
IV piggybacks 300 / 300
Amount instilled into Drain (
Total)
Right Back Placed in IR
Amount instilled into GI Tube ( 60 / 60
Total)
[place] Sump 60 / 60
Output:
Emesis 450 / 450
Urinary Drain Output (Total) /
Right Nephrostomy
Gastrointestinal tube output ( 200 / 200 1700 / 1700 300 / 300
Total)
[place] Sump 200 / 200 1700 / 1700 300 / 300
Urostomy output 5 / 5 445 / 445
Vital Signs
Temp Pulse Resp BP Pulse Ox
97.7 F 67 14 98/88 97
12/17/23 07:28 12/17/23 09:00 12/17/23 09:00 12/17/23 08:45 12/17/23 09:00
Lab Results
12/17/23 01:22
Calcium 8.0 mg/dl (8.4-10.2) L D 12/17/23 01:22
Magnesium 2.3 mg/dl (1.6-2.3) 12/16/23 05:02
Total Bilirubin 0.4 mg/dl (0.2-1.3) 12/15/23 13:58
AST 22 U/L (14-36) 12/15/23 13:58
ALT 25 U/L (0-35) 12/15/23 13:58
Alkaline Phosphatase 100 U/L (38-126) 12/15/23 13:58
Total Protein 7.4 g/dl (6.3-8.2) 12/15/23 13:58
Albumin 3.9 g/dl (3.5-5.0) 12/15/23 13:58
Physical Exam
-
NAD
Abd: mildly distended, nontender
nephrostomy tube with purulent output
--- NOTE | 2023-12-17 11:31 | W.PN.CD ---
Today's Communication / Plan
-
continue IV heparin
if Hgb continues to trend down, OK to hold
Impression / Plan
-
73 yo female with h/o bladder cancer, urostomy, HTN admitted with septic shock. She has SBO and also right pyelonephritis. She is on pressors. We are consulted for A fib with RVR.
Paroxysmal A fib
-back in sinus spontaneously
-if recurs, will start IV amiodarone given hypotension and on pressors
-CHADS2-VASC = 3. continue IV heparin.
Abnormal EKG - transient inferior ST elevation on EKG noted.
- mildly elevated troponin, and no chest pain
-echo: EF 55-60%, aortic sclerosis, mild AR, nl RV
GUI - acute on chronic CKD.
- creatinine 4.7: nephrology consulted
SBO - acute.
- NG tube in place, drained 2L green fluid in the ER.
- surgery consulted.
Right pyelonephritis - acute.
- urostomy bag.
- may need nephrectomy: urology consulted
CCT 30 minutes
Physical Exam
Vital Signs/Labs
Vital Signs
Temp Pulse Resp BP Pulse Ox
97.7 F 67 14 98/88 97
12/17/23 07:28 12/17/23 09:00 12/17/23 09:00 12/17/23 08:45 12/17/23 09:00
12/16/23 12/17/23 12/18/23
06:59 06:59 06:59
Actual Weight 50.3 kg 53.2 kg
12/17/23 01:22
PT 15.8 Sec (11.4-14.6) H 12/15/23 17:14
INR 1.28 12/15/23 17:14
APTT 53.9 Sec (23.4-35.0) H 12/17/23 08:43
Magnesium 2.3 mg/dl (1.6-2.3) 12/16/23 05:02
TSH 1.72 uIU/ml (0.47-4.68) 12/16/23 05:02
LAB Results
12/15/23 12/15/23 12/15/23
13:58 18:31 21:17
Troponin I 0.014 Cancelled 0.046 H* D
12/16/23 12/16/23 12/16/23
05:02 06:00 12:11
Troponin I 0.060 H* D Cancelled 0.048 H*
Physical Exam
Constitutional: No acute distress
EENT: Moist mucous membranes
Cardiovascular: Rhythm & rate is regular, Pedal edema is absent, JVD pressure is normal and Systolic murmur absent
Respiratory: Respiratory effort normal
GI: Soft and Abdomen is tender
Neuro/Psych: AO x 3
Data Reviewed
-
Date of Service: December 17, 2023
EKG: Other (Tele: SR 90s)
Labs: Labs Reviewed by me
--- NOTE | 2023-12-17 12:04 | PTCARENOTE ---
milk and molasses enema given as ordered with no stool
--- NOTE | 2023-12-17 13:07 | PTCARENOTE ---
pt had liquid stool with small amt of stool flecks.
[2023-12-17 14:43] LABS: Body Fluid for Eosinophils 1% Eosinophils seen
--- NOTE | 2023-12-17 15:10 | PTCARENOTE ---
pt refusing blood transfusion. DR mosley notified type and screen d/c'd
[2023-12-17] MEDS: HEPARIN 25000 UNITS/250 ML IV (15:41)
[2023-12-17] MEDS: LIDOCAINE 4% PATCH 1 PATCH TOPICAL (15:58)
[2023-12-17 16:53] LABS: Hematocrit 22.5 % (37.0-47.0); Hemoglobin 7.3 g/dL (12.0-16.0)
[2023-12-17 17:05] LABS: APTT 62.3 Sec (23.4-35.0)
[2023-12-17] MEDS: XALATAN OPHTHALMIC SOLUTION 1 DROP BOTH EYES (21:18)
--- NOTE | 2023-12-17 21:52 | PTCARENOTE ---
rec'd pt at shift change. assessment as documented. pt anxious, oriented x3. SR on monitor. goal MAP >65, levo gtt infusing. PTT due at 2300, heparin gtt infusing. urostomy noted, stoma red, cloudy yellow drainage. R nephrostomy tube noted, zazueta
cloudy drainage noted. L nare [place] pump dislodged, new 10F [place] inserted into R nare. XR obtained, NGT advanced 5cm per reading. black/green drainage noted, attached to LIS. ICU [employer] LE[employer] aware. CHG bath, oral care done. pt repositioned with pillows. PRN
dilaudid given for R sided back pain. call castellanos within reach. care ongoing.
[2023-12-17 23:16] LABS: APTT 114.1 Sec (23.4-35.0)
[2023-12-18] VITALS (51 sets, daily range): BP systolic 81–112; BP diastolic 47–79; PULSE 76; BMI 22.8
--- NOTE | 2023-12-18 00:30 | PTCARENOTE ---
patient reassessed. repositioned often with pillows to take pressure off back, PRN dilaudid given. heparin gtt titrated per PTT result. care ongoing.
[2023-12-18] MEDS: DILAUDID 0.25 MG IV ×5 (00:32→18:11)
[2023-12-18] MEDS: LEVOPHED 250 IV ×2 (04:38→18:10)
[2023-12-18] MEDS: NSS 1000 IV ×2 (05:09→18:10)
[2023-12-18] MEDS: ZOSYN 50 IV ×3 (05:09→18:11)
--- NOTE | 2023-12-18 05:20 | PTCARENOTE ---
pt reassessed, no changes noted. AM labs sent. pt repositioned for comfort, call castellanos within reach. care ongoing.
[2023-12-18 05:40] LABS: APTT 81.1 Sec (23.4-35.0); Hematocrit 23.7 % (37.0-47.0); Hemoglobin 7.4 g/dL (12.0-16.0); Mean Corp Hgb Conc. 31.2 g/dL (33.0-37.0); Mean Corpuscular Hgb 24.3 pg (27.0-31.0); Mean Platelet Volume 9.2 fL (7.4-10.4); Platelet Count 347 10^3/uL (130-400); Red Blood Cell Count 3.04 10^6/uL (4.20-5.40); Red Cell Dist. Width 19.9 % (11.5-14.5); White Blood Cell Count 7.9 10^3/uL (4.8-10.8)
[2023-12-18 06:24] LABS: Cortisol, Random 44.1 ug/dl
--- NOTE | 2023-12-18 06:27 | W.PN.HOSP.TC ---
Today's Communication/Plan
-
.
Assessment / Plan
Assessment / Plan
Physical examination:
General: Awake alert, not in respiratory distress,
HEENT: + NG tube
Cardiovascular system S1-S2 regular
Lungs: no wheezes.
Abdomen: soft, non tender, + urostomy bag with clear urine
Right CV drain with purulent urine
MSK: No pedal edema
Neurological: followed commands
Psych: no agitation
# Septic Shock
Secondary to emphysematous pyelonephritis
Afebrile
improving clinically, Still on Levophed
Continue Zosyn
Blood Cx neg
Urine CX Gram negative bacilli
Previous Klebsiella sensitive to Zosyn
IVF-NSS
Holding lisinopril
Recently completed Bactrim as outpatient
Appreciate iCU doctor help
# Hypokalemia-replace
# TME resolving
Non focal
# Small bowel obstruction [id number] CT
No abd pain
No N/V
She feels hungry and thirsty
Ileus because of emphysematous pyelonephritis
Can try to clamp NG trial
IV fluids
Appreciate surgery help
# Lactic acidosis-Normalized.
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 Arce
Stage 3b chronic kidney disease
Nephrolithiasis bilaterally with staghorn calculus 1.7 cm left kidney.
Right-sided percutaneous nephrostomy tube placed on 12/15/2023 by interventional radiology-purulent drainage.
Broad-spectrum antibiotics-Zosyn.
May need nephrectomy on the right side eventually.
Appreciate urology & nephrology help
# Paroxysmal atrial fibrillation-currently in sinus rhythm.
Started on heparin drip ,continue Amiodarone.
No bleeding noted
No chest pain
# Elevated troponin-nonischemic myocardial injury
# Anemia-Due to chronic disease
No evidence of iron or B12 deficiency
Watch hemoglobin closely with heparin drip
# Thrombocytosis-likely secondary to infection follow-Improving
# Acute kidney injury on CKD-stage IIIB, prerenal or ATN in the setting of sepsis
Hold lisinopril
Creatinine down to 3.7 from 4.7
c/w mild IV fluids
Recently completed a course of Bactrim as outpatient
Appreciate nephrology help
# Hyponatremia-likely hypovolemic.
# Hypercalcemia-likely dehydration related. Resolved
# Primary Hypertension-hold lisinopril
# Anxiety and schizophrenia-Per discussion with niece however patient denied schizophrenia
Add PRN Ativan
# Developmental Delay
# Visual impairment - Glaucoma- Continue Eye drops latanoprost and timolol
# Tardive dyskinesia
# Essential tremors
# DVT prophylaxis-Lovenox
# CODE STATUS-Full code per D/W Niece (Pt never fills out paper work or commit)
Discussed with dip brazier, surgery, nephrology, cardiology
D/W RN
Total time spent to see the patient, examine the patient on the floor, review data and lab results, discuss treatment plan with patient and nursing staff around 55 minutes
Anticipated Discharge: > 48 hours
Subjective/Interval History
-
Date of Service: December 18, 2023
She feels thirsty
Night team: mild agitation , no fevers
Objective Data
-
Labs:
Laboratory Results
12/17/23 12/18/23
22:59 05:15
WBC 7.9
Hgb 7.4 L
Hct 23.7 L
Plt Count 347 D
APTT 114.1 H 81.1 H
Sodium Pending
Potassium Pending
Chloride Pending
Carbon Dioxide Pending
BUN Pending
Creatinine Pending
Glucose Pending
Calcium Pending
Vital Signs:
Vital Signs
Temp Pulse Resp BP Pulse Ox
97.7 F 71 12 94/58 96
12/18/23 05:20 12/18/23 06:15 12/18/23 06:15 12/18/23 06:00 12/18/23 06:15
I&O
12/16/23 12/17/23 12/18/23
06:59 06:59 06:59
Intake Total 1587.5 / 1717.5 4518.5 / 4723.5 4658.2 / 4658.2
Output Total 695 / 695 2230 / 2230 2250 / 2250
Balance 892.5 / 1022.5 2288.5 / 2493.5 2408.2 / 2408.2
[2023-12-18 06:32] LABS: Blood Urea Nitrogen 56 mg/dl (7-17); Calcium 8.3 mg/dl (8.4-10.2); Carbon Dioxide 21 mmol/L (22-30); Chloride 103 mmol/L (98-107); Estimated Creatinine Clearance 10 ml/min; Glucose 99 mg/dl (70-99); Potassium 3.4 mmol/L (3.5-5.1); Sodium 135 mmol/L (135-145); eGFR 12.38
[2023-12-18] MEDS: PROTONIX IV 40 MG IV (08:18)
[2023-12-18] MEDS: NSS (PRESERVATIVE FREE) 10 ML IV (08:18)
[2023-12-18] MEDS: TIMOPTIC 0.5% OPHTHALMIC SOLUTION 1 DROP BOTH EYES (08:18)
--- NOTE | 2023-12-18 08:30 | PTCARENOTE ---
Received pt @ change of shift. Pt. AAOx3, anx/tearful/forgetful @ x's; frequent emotional support given. SR on monitor. SpO2 98% on RA. Hypo BS, abd round/distended. R nare NGT to LIS w 650mL of output s/p repositioning pt in bed and sitting up.
NPO status maintained. R urostomy in place w cloudy/yellow urine; R nephrotomy w brown/cloudy urine. R DL PICC w levo/heparin gtt-see flow sheet and IVF. Hygiene care given. Instructed on how to report care concerns and call castellanos in reach.
--- NOTE | 2023-12-18 08:54 | W.PN.CD ---
Today's Communication / Plan
-
Remains on pressors norepinephrine is being weaned down to 6. Continue to wean as tolerated
Remains in sinus rhythm. PAF earlier this admission. No new recommendations. Remains on IV heparin. Can transition to oral anticoagulation when patient GI issues allow and when no additional invasive procedures are planned.
Impression / Plan
-
73 yo female with h/o bladder cancer, urostomy, HTN admitted with septic shock. She has SBO and also right pyelonephritis. She is on pressors. We are consulted for A fib with RVR.
Paroxysmal A fib
-back in sinus spontaneously
-if recurs, will start IV amiodarone given hypotension and on pressors
-CHADS2-VASC = 3. continue IV heparin.
Abnormal EKG - transient inferior ST elevation on EKG noted.
- mildly elevated troponin, and no chest pain
-echo: EF 55-60%, aortic sclerosis, mild AR, nl RV
-Troponin peak only 0.06
GUI - acute on chronic CKD.
- creatinine 4.7: Trended down to 3.7. Nephrology following
SBO - acute.
- NG tube in place,
- surgery consulted.
Right pyelonephritis - acute.
- urostomy bag.
- may need nephrectomy: urology consulted
Echocardiogram 12/15/2023 normal left ventricular function. Aortic sclerosis, mild aortic regurgitation trivial pericardial effusion left pleural effusion.
CCT 30 minutes
Physical Exam
Vital Signs/Labs
Vital Signs
Temp Pulse Resp BP Pulse Ox
99.7 F 70 15 109/60 98
12/18/23 08:34 12/18/23 08:45 12/18/23 08:45 12/18/23 08:30 12/18/23 08:52
12/17/23 12/18/23 12/19/23
06:59 06:59 06:59
Actual Weight 53.2 kg 54.7 kg
12/18/23 05:15
12/18/23 05:15
PT 15.8 Sec (11.4-14.6) H 12/15/23 17:14
INR 1.28 12/15/23 17:14
APTT 81.1 Sec (23.4-35.0) H 12/18/23 05:15
Magnesium 2.3 mg/dl (1.6-2.3) 12/16/23 05:02
TSH 1.72 uIU/ml (0.47-4.68) 12/16/23 05:02
LAB Results
12/15/23 12/15/23 12/15/23
13:58 18:31 21:17
Troponin I 0.014 Cancelled 0.046 H* D
12/16/23 12/16/23 12/16/23
05:02 06:00 12:11
Troponin I 0.060 H* D Cancelled 0.048 H*
Physical Exam
Constitutional: No acute distress
Cardiovascular: Rhythm & rate is regular and Systolic murmur present
Respiratory: Respiratory effort normal
GI: Soft
Neuro/Psych: Alert
Data Reviewed
-
Date of Service: December 18, 2023
Medical Decision Making: Reviewed Test Results
Echo: Report Reviewed by me
X-Ray/CT/US/MRI/NUC/PET: Report Reviewed by me
Medical Tests (PFT, Pathology etc): Report Reviewed by me
Labs: Labs Reviewed by me
[2023-12-18] MEDS: KCL 270 MEQ IV (10:30)
--- NOTE | 2023-12-18 11:01 | W.PN.GS2 ---
Today's Communication / Plan
-
CT abd/pelvis
Assessment / Plan
-
73 yo female with a history of bladder ca and cystectomy with ileal conduit creation at [facility] in 2005 who presents with back pain and nausea from home. Admitted with urosepsis. In addition to abnormal urologic findings CT with possible SBO vs ileus,
limited to lack of PO contrast. Stomach was markedly distended.
Initially hypothermic, currently normothermic. BP stable on Levophed.
Leukocytosis resolved
NGT outputs remain bilious with no passage of flatus/stool. Enemas ordered by medical service over the weekend with no bm's
Continue NGT to LIWS and keep NPO x ice chips
Will repeat CT with PO contrast to further evaluate
Medical management as per primary team
Subjective Data
-
Date of Service: December 18, 2023
Patient seen and examined at bedside with Dr. Roque. Reporting some anxiety. No BM or Flatus.
Objective Data
-
Intake and Output
12/17/23 12/18/23/
06:59 06:59 06:59
Intake Total 4518.5 / 4723.5 4658.2 / 4768.7 464.5 / 464.5
Output Total 2230 / 2230 2250 / 2250 650 / 650
Balance 2288.5 / 2493.5 2408.2 / 2518.7 -185.5 / -185.5
Intake:
IV fluids (Total) 4158.5 / 4363.5 4508.2 / 4618.7 434.5 / 434.5
Levo 1012.5 / 1057.5 900.2 / 922.7 82.5 / 82.5
Nss 1,000 ml @ 75 mls/hr IV . 3000 / 3150 3300 / 3375 300 / 300
[id number] [facility] Rx#:[id number]
heparin 146 / 156 308 / 321 52 / 52
IV piggybacks 300 / 300 150 / 150
Amount instilled into GI Tube ( 60 / 60 30 / 30
Total)
[place] Sump 60 / 60 30 / 30
Output:
Drain Output (Total) 50
Right Back Placed in IR
Urinary Drain Output (Total) 50 / 50
Right Nephrostomy
Gastrointestinal tube output ( 1700 / 1700 775 / 775 650 / 650
Total)
[place] Sump 1700 / 1700 775 / 775 650 / 650
Urostomy output 445 / 445 1375 / 1375
Vital Signs
Temp Pulse Resp BP Pulse Ox
99.7 F 70 15 109/60 98
12/18/23 08:34 12/18/23 08:45 12/18/23 08:45 12/18/23 08:30 12/18/23 08:52
Lab Results
12/18/23 05:15
12/18/23 05:15
Calcium 8.3 mg/dl (8.4-10.2) L 12/18/23 05:15
Magnesium 2.3 mg/dl (1.6-2.3) 12/16/23 05:02
Total Bilirubin 0.4 mg/dl (0.2-1.3) 12/15/23 13:58
AST 22 U/L (14-36) 12/15/23 13:58
ALT 25 U/L (0-35) 12/15/23 13:58
Alkaline Phosphatase 100 U/L (38-126) 12/15/23 13:58
Total Protein 7.4 g/dl (6.3-8.2) 12/15/23 13:58
Albumin 3.9 g/dl (3.5-5.0) 12/15/23 13:58
Physical Exam
-
NAD
Abd: mildly distended, nontender. NGT with bilious outputs
nephrostomy tube with purulent output
--- NOTE | 2023-12-18 11:28 | W.PN.NEPH.PH ---
Today's Communication / Plan
-
- Cr improving
- UOP excellent
- CTM
Assessment/Plan
-
Impression:
Uro-Sepsis with SBO and right pyelonephritis
Acute kidney injury (baseline CKD ~1.5)
Status post right percutaneous nephrostomy tube placement 12/15/2023
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
Ileal conduit status post cystectomy in 2005
History of hypertension
Anemia
A-fib with RVR
Thrombocytosis
Lactic acidosis
Hypocalcemia
Plan:
GUI:
-Likely prerenal in precipitated in setting of sepsis with hemodynamic collapse and possible obstructive component in setting of right pyelonephritis status post right percutaneous nephrostomy tube placement. per urology will need a R nephrectomy
and L stone removal
-Cr finally downtrended to 3.7 today
-non oliguric
-Remains on norepinephrine pressor support to keep MAP 65 or greater (weaning down)
-IV fluids provided
-Antihypertensives held including lisinopril currently
-Closely monitor urostomy and right PCN output
-Zosyn renally dosed
-Maintain isotonic saline for blood pressure support
-No acute dialysis requirement
-Patient is critically ill requiring pressor support in the setting of advancing acute kidney
-
-
Date of Service: December 18, 2023
CC / HPI / ROS
-
Chief Complaint:
GUI
History of Present Illness:
GUI with Cr down to 3.7, peak 4.7
Hemodynamically labile
On heparin in setting of A-fib
Review of Systems:
Nonoliguric via urostomy
NG tube with output of 1.1, urostomy with 1.3L
Afebrile
No chest pain or shortness of breath
right PCN
Labs
-
Labs:
WBC 7.9 10^3/uL (4.8-10.8) 12/18/23 05:15
RBC 3.04 10^6/uL (4.20-5.40) L 12/18/23 05:15
Hgb 7.4 g/dL (12.0-16.0) L 12/18/23 05:15
Hct 23.7 % (37.0-47.0) L 12/18/23 05:15
Plt Count 347 10^3/uL (130-400) D 12/18/23 05:15
Sodium 135 mmol/L (135-145) 12/18/23 05:15
Potassium 3.4 mmol/L (3.5-5.1) L 12/18/23 05:15
Chloride 103 mmol/L (98-107) 12/18/23 05:15
Carbon Dioxide 21 mmol/L (22-30) L 12/18/23 05:15
BUN 56 mg/dl (7-17) H 12/18/23 05:15
Creatinine 3.7 mg/dL (0.6-1.0) H 12/18/23 05:15
eGFR 12.38 12/18/23 05:15
Glucose 99 mg/dl (70-99) 12/18/23 05:15
Calcium 8.3 mg/dl (8.4-10.2) L 12/18/23 05:15
Albumin 3.9 g/dl (3.5-5.0) 12/15/23 13:58
Physical Exam
-
Vital Signs:
Vital Signs
Temp Pulse Resp BP Pulse Ox
99.7 F 71 15 84/55 99
12/18/23 08:34 12/18/23 11:06 12/18/23 11:06 12/18/23 11:06 12/18/23 11:06
Cardiovascular:: Regular rate and rhythm
Respiratory:: Bilateral: Coarse
Lung Excursion:: Normal
Abdomen:: Nontender and Soft
Bowel Sounds:: Normal
Extremity Edema:: None: Bilateral:
Condon Catheter: Yes
[2023-12-18] MEDS: HEPARIN 25000 UNITS/250 ML IV (11:45)
--- NOTE | 2023-12-18 11:50 | W.PN.INTV ---
Documented by User: Kael Boudreaux MD, Resident 12/18/23 12:06
Today's Communication / Plan
Recommendations
Continue to wean pressors as tolerated
Continue IV antibiotics
Repeat CT with p.o. contrast to further evaluate
Assessment
-
73-year-old female with history of radical cystectomy with ileal conduit urinary diversion 2005 for bladder cancer squamous cell. There has been no evidence of recurrence, with stable inguinal lymphadenopathy. Of note she has history of gross
hematuria with recurrence, known extensive staghorn calculus with nephrolithiasis. Patient with thick blood and purulent urine in the ostomy bag which appears to be intermittent, resolves with antibiotic therapy. Most recently was started on
Macrodantin as outpatient now presents with sepsis, tachycardia, hypotension, lethargy. We are asked to help from critical care standpoint 12/15/2023
Septic shock, hypotension
Requiring pressors
Back pain
S/P percutaneous nephrostomy tube placement per IR 12/14
Imaging worrisome for emphysematous pyelonephritis
History of nephrolithiasis, large calculi per imaging in the past
Complex renal cysts
Sinus tachycardia
Abnormal EKG
Inferior ST elevation, transient
Incomplete right bundle branch block
Lethargy, mental status changes
Improved with IV fluids
Leukocytosis/anemia
History of recurrent UTI
Recent course of Bactrim November 2023
Possible ileus
NG tube placed in ED
Large bilious volume removed
Large gastric bubble per abdominal imaging
Acute renal insufficiency, creatinine 3.7
Baseline 1.5
Hyponatremia/hyperkalemia
Elevated lactate
Paroxysmal atrial fibrillation, now on heparin
Conditions present prior to admission:
Bladder cancer 2005
Squamous cell
Status post radical cystectomy with ileal conduit urinary diversion ([facility])
Follows urology ([facility])
No evidence of recurrence since
Chronic kidney disease, baseline 1.5
Generalized anxiety disorder
Hx of Tardive dyskinesia
Bipolar disorder
Chronic lymphedema
Cachexia
History of multiple falls
Plan/recommendations
At this time, patient appears to be critically ill, but stable
Remains on norepinephrine, 4 mcg.
Worsening creatinine noted, percutaneous drainage pus
Tachycardia improved, atrial fibrillation noted. Patient now on heparin therapy per cardiology
History of chronic urological issues, staghorn calculi, presented with back pain
Recent course of Bactrim as outpatient with purulent output via urostomy bag
Moving forward
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
Urine culture positive for Klebsiella
Nephrostomy tube in place, draining pus
Remains on Zosyn therapy
Creatinine down trended to 3.7 today
Nephrology following
Continue IV fluids, normal saline, bolus as necessary
Recent UA from 12/06/2023 abnormal. Patient apparently completed course of Bactrim as outpatient, Macrodantin therapy also noted
Per urology, patient will eventually require nephrectomy
On admission, EKG at [address] elevation
Repeat EKG at 1541 without any evidence of ST elevation, nonspecific ST abnormalities
Incomplete right lower branch block
Significant ileus noted, large gastric bubble, possible small bowel obstruction per abdominal imaging
Patient states she feels much better presently
Norepinephrine to maintain maps greater than 65
Echocardiogram with normal biventricular function, no significant valvular disease
Patient now on heparin and amiodarone therapy for atrial fibrillation
Cardiology following
Suspect possible bowel obstruction
Surgery following. NG tube in place, significant output continues
Abdominal CT without any obvious mass per report
Ileus
Repeat CT with p.o. contrast to further evaluate
Continue with IV fluids
Presently, patient denies pain. Dilaudid as needed, oxycodone as needed
DVT prophylaxis: On heparin drip for atrial fibrillation
GI prophylaxis: Remains on Protonix
Subjective Dataa
Subjective Data
Date of Service:
Date of Service: December 18, 2023
Chief Complaint: Terrazzo Mechanic Follow Up
Objective Data
Data Reviewed
Vital Signs / I&O / Oxygen:
Vital Signs
Temp Pulse Resp BP Pulse Ox
98.1 F 71 15 84/55 99
12/18/23 11:48 12/18/23 11:06 12/18/23 11:06 12/18/23 11:06 12/18/23 11:06
Intake and Output
12/17/23 12/18/23 12/19/23
06:59 06:59 06:59
Intake Total 4518.5 / 4723.5 4658.2 / 4768.7 627.5 / 627.5
Output Total 2230 / 2230 2250 / 2250 650 / 650
Balance 2288.5 / 2493.5 2408.2 / 2518.7 -22.5 / -22.5
SaO2 99
Physical Exam
General: Comfortable (Cachectic), Other (Right upper extremity PICC line) and Other (Percutaneous nephrostomy tube with pus)
HEENT: Normocephalic and Anicteric
Cardiovascular: S1-S2, Regular Rhythm, Murmur (n) and Rub (n)
Respiratory: Wheeze (n), Crackles (n) and Rhonchi (n)
GI: Soft, Distended (Mildly distended), Non Tender, NG Tube and Other (Urostomy intact)
Neurology: Awake and No Motor Deficits (Moves all extremities, generally weak)
Skin: Cyanosis (n), Jaundice (n) and Rash (n)
Labs/Micro/Reports
Lab Data
12/18/23 05:15
12/18/23 05:15
Laboratory Results
12/17/23 12/17/23 12/18/23
15:55 22:59 05:15
APTT 62.3 H 114.1 H 81.1 H
Microbiology
12/15/23 18:31 Urine Urine Culture - Final
Klebsiella oxytoca
12/15/23 14:39 Blood/Venous Blood Culture - Preliminary
No Growth in 48 hours- Final report to follow
12/15/23 13:58 Blood/Venous Blood Culture - Preliminary
No Growth in 48 hours- Final report to follow

Documented by User: Senthil Laws MD 12/18/23 15:21
Today's Communication / Plan
Recommendations
Continue to wean pressors as tolerated
Continue IV antibiotics
IVFs
Urology and Sx follow up
Assessment
-
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 There has been no evidence of recurrence, with stable inguinal lymphadenopathy. Of note she
has history of gross hematuria with recurrence, known extensive staghorn calculus with nephrolithiasis. Patient with thick blood and purulent urine in the ostomy bag which appears to be intermittent, resolves with antibiotic therapy. Most recently
was started on Macrodantin as outpatient now presents with sepsis, tachycardia, hypotension, lethargy. We are asked to help from critical care standpoint 12/15/2023
Septic shock, hypotension
Requiring pressors
Back pain
S/P percutaneous nephrostomy tube placement per IR 12/14
Imaging worrisome for emphysematous pyelonephritis
History of nephrolithiasis, large calculi per imaging in the past
Complex renal cysts
Sinus tachycardia
Abnormal EKG
Inferior ST elevation, transient
Incomplete right bundle branch block
Lethargy, mental status changes
Improved with IV fluids
Leukocytosis/anemia
History of recurrent UTI
Recent course of Bactrim November 2023
Possible ileus
NG tube placed in ED
Large bilious volume removed
Large gastric bubble per abdominal imaging
Acute renal insufficiency, creatinine 3.7
Baseline 1.5
Hyponatremia/hyperkalemia
Elevated lactate
Paroxysmal atrial fibrillation, now on heparin
Conditions present prior to admission:
Bladder cancer 2005
Squamous cell
Status post radical cystectomy with ileal conduit urinary diversion ([facility])
Follows urology ([facility])
No evidence of recurrence since
Chronic kidney disease, baseline 1.5
Generalized anxiety disorder
Hx of Tardive dyskinesia
Bipolar disorder
Chronic lymphedema
Cachexia
History of multiple falls
Plan/recommendations
Clinically improved
Remains on norepinephrine, weaning 4 mcg/min
Worsening creatinine noted, percutaneous drainage pus
Tachycardia improved, atrial fibrillation noted. Patient now on heparin therapy per cardiology
History of chronic urological issues, staghorn calculi, presented with back pain
Recent course of Bactrim as outpatient with purulent output via urostomy bag
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
Urine culture positive for Klebsiella
Nephrostomy tube in place, draining pus
Remains on Zosyn therapy
Creatinine down trended to 3.7 12-17 (baseline 1.5)
Nephrology following, UO excellent as of 12-17
Continue IV fluids, normal saline, bolus as necessary
Recent UA from 12/06/2023 abnormal. Patient apparently completed course of Bactrim as outpatient, Macrodantin therapy also noted
Per urology, patient will eventually require nephrectomy, no intervention indicated at this juncture
On admission, EKG at 14:[address] elevation
Repeat EKG 12-14 at 15:41 without any evidence of ST elevation, nonspecific ST abnormalities
Incomplete right lower branch block
Significant ileus noted, large gastric bubble, possible small bowel obstruction per abdominal imaging
Echocardiogram with normal biventricular function, no significant valvular disease
Patient now on heparin and amiodarone therapy for atrial fibrillation
Cardiology following
Suspect possible bowel obstruction
Surgery following. NG tube in place, significant output continues
Abdominal CT 12-14 without any obvious mass per report
Ileus
Repeat CT with p.o. contrast 12-17:
1. Technically challenging evaluation of the GI tract secondary to absence of intravenous contrast and paucity of intra-abdominal fat. The stomach remains significantly distended with dilute oral contrast with multiple dilated proximal and mid
small bowel loops measuring up to 3.5 cm. There appear to be several decompressed ileal loops of the right lower quadrant suggesting the presence of a mechanical obstruction. The colon is also largely decompressed with moderate rectal distention
with wall thickening and circumferential stranding suggesting possible stercoral colitis. Mild amount of central mesenteric edema.
2. 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 Mildly improved hydronephrosis and stranding. Several renal calculi remain within the left
kidney. Right lower quadrant ileal conduit.
3. Small bilateral pleural effusions with confluent airspace consolidation within the adjacent left lower lobe, likely atelectasis.
Continue with IV fluids
Presently, patient denies pain. Dilaudid as needed, oxycodone as needed
DVT prophylaxis: On heparin drip for atrial fibrillation
GI prophylaxis: Remains on Protonix
Critical care time: 35 min
D/w MDT
ATTENDING PHYSICIAN ATTESTATION:
(Follow-up Visit:)
I personally saw and evaluated the patient along with the FM Resident Dr Hughes.
Discussed with Resident and discussed in rounds with MDT.
I agree with Resident�s findings and plan as documented in the resident�s note, which was edited by myself.
Subjective Dataa
Subjective Data
Subjective:
No major events reported overnight
On room air, respiratory sorensen stable, denies cough or shortness of breath at rest
Chronic ileostomy
Continues on antibiotics for recurrent UTI, this time with urosepsis
Norepinephrine dosing been decreased
Review of Systems
General: Fever (n), Sweats, Chills (n) and Satisfactory Appetite
HEENT: Epistaxis (n) and Dysphagia (n)
Cardiopulmonary: Dyspnea (n), Cough (n), Wheezing (n), Chest Pain (n), Edema (n) and Hemoptysis (n)
GI: Abdominal Pain (mild), Nausea (n) and Vomiting (n)
Neuro: Weakness (n)
Genitourinary: Hematuria (n)
[2023-12-18] MEDS: OMNIPAQUE 50 ML PO (12:14)
--- NOTE | 2023-12-18 12:23 | W.PN.URO.CBU ---
Today's Communication / Plan
-
plan per hospitalist and woodworking machine offbearer no gu intervention indicated at this time
Assessment / Plan
-
acutely ill with urosepsis -- Klebsiella XGP of right kidney
non-obstructing left renal stones
improved urine output but still oliguric
Diagnosis
-
Date of Service: December 18, 2023
-
Patient Diagnosis:
Post Op Day:
Patient Diagnosis:
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
Left Renal Stones
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
signs of ongoing sepsis
Subjective
-
feels tired bu no report of marleny chills no nausea today
Objective
-
Vital Signs
Temp Pulse Resp BP Pulse Ox
98.1 F 71 15 84/55 99
12/18/23 11:48 12/18/23 11:06 12/18/23 11:06 12/18/23 11:06 12/18/23 11:06
Intake and Output
12/17/23 12/18/23 12/19/23
06:59 06:59 06:59
Intake Total 4518.5 / 4723.5 4658.2 / 4768.7 627.5 / 627.5
Output Total 2230 / 2230 2250 / 2250 650 / 650
Balance 2288.5 / 2493.5 2408.2 / 2518.7 -22.5 / -22.5
Intake:
IV fluids (Total) 4158.5 / 4363.5 4508.2 / 4618.7 530.0 / 530.0
Levo 1012.5 / 1057.5 900.2 / 922.7 90.0 / 90.0
Nss 1,000 ml @ 75 mls/hr IV . 3000 / 3150 3300 / 3375 375 / 375
[id number] CALLIE Rx#:[id number]
heparin 146 / 156 308 / 321 65 / 65
IV piggybacks 300 / 300 150 / 150 67.5 / 67.5
Amount instilled into GI Tube ( 60 / 60 30 / 30
Total)
Tolar Sump 60 / 60 30 / 30
Output:
Drain Output (Total) 50 / 50
Right Back Placed in IR 50 / 50
Urinary Drain Output (Total) / 50 / 50
Right Nephrostomy 50 / 50
Gastrointestinal tube output ( 1700 / 1700 775 / 775 650 / 650
Total)
Tolar Sump 1700 / 1700 775 / 775 650 / 650
Urostomy output 445 / 445 1375 / 1375
Laboratory Results
12/18/23 05:15
12/18/23 05:15
Review of Systems
-
: No Symptoms
Physical Exam
-
General - well developed, well nourished, no acute distress
Chest - clear bilaterally
Abdomen - soft, non-tender, positive bowel sounds, no CVAT, no incisional pain or distention
Genitalia - normal
Rectal - normal
Skin - warm & dry with no rash
Neuro - AOx3, no motor deficits
Extremities - no clubbing, no cyanosis, no edema
Incision - clean, dry
Dressing - clean, dry, intact
Care Review
Data Reviewed
Discussed with: Nursing
CT Scan: Image Pers Reviewed
--- NOTE | 2023-12-18 12:49 | CM ---
CM following re: discharge planning.
Discussed in Rounds, reviewed pt's chart, met with pt. Per Rounds meeting, Continue to wean pressors, continue antibiotics, continue supportive care.
PT and OT will evaluate the pt when clinically appropriate. PT and OT consults requested.
Pt lives alone in a mobile home, has a cat and per pt her cat is taking care of by her neighbor Mark. Pt reports she does not have immediate family here, her niece and a sister live in [place]. Pt reports she ambulates with a walker at baseline, had VN
services in the past and pt cannot recall the name of VN provider. Pt reports she had some falls at home and now she is afraid even to stand.
Pt preferred to go to [facility] if recommended by PT/OT.
D/C plan: [facility] if recommended by PT/OT.
CM will follow with discharge plan updates as hospitalization progresses
[2023-12-18] MEDS: ATIVAN 0.5 MG IV ×2 (13:40→20:42)
[2023-12-18] MEDS: NSS (PRESERVATIVE FREE) 0.25 ML IV ×2 (13:40→20:43)
--- NOTE | 2023-12-18 14:40 | PTCARENOTE ---
Pt. completed contrast via NGT per protocol prior to CT- see OCT. Transported in bed to CT scan and back to rm 3360; no adventitious events. Remains on heparin and levo gtts- see OCT. Hygiene care provided and pt repositioned. NGT reconnected to
ADDISON w mod amt of green output. Pt.'s niece updated on plan of care via phone. Call emanuel goode in reach.
[2023-12-18] MEDS: LIDOCAINE 4% PATCH 1 PATCH TOPICAL (16:04)
--- NOTE | 2023-12-18 18:34 | PTCARENOTE ---
Pt. worked w PT today. Assisted w this RN and PT to edge of bed. Able to stand @ side of bed w RW and side step to top of bed. Generalized weakness. Assisted back in bed and repositioned per protocol. Call castellanos in reach. Pt.'s niece to bedside
this evening, updated on plan of care.
--- NOTE | 2023-12-18 20:30 | PTCARENOTE ---
rec'd patient. assessment as documented. pt extremely tearful and anxious, PRN ativan given. oriented x3, SR on monitor, on RA, denies SOB, diminished breath sounds, urostomy and R nephrostomy in place. R NGT to LIS. levo gtt infusing to maintain
MAP >65. heparin and IVF infusing, R PICC in place. PTT due at 0100. CHG bath and oral care provided, pt repositioned. call castellanos within reach, care ongoing.
[2023-12-18] MEDS: XALATAN OPHTHALMIC SOLUTION 1 DROP BOTH EYES (20:42)
[2023-12-19] VITALS (40 sets, daily range): BP systolic 88–117; BP diastolic 54–92; PULSE 83–92; O2SAT 98; BMI 22.6
[2023-12-19] MEDS: ZOSYN 50 IV (00:54)
[2023-12-19 01:21] LABS: APTT 86.5 Sec (23.4-35.0)
[2023-12-19] MEDS: NSS 1000 IV (03:48)
[2023-12-19] MEDS: LEVOPHED 250 IV (03:49)
[2023-12-19 04:01] LABS: Hematocrit 23.1 % (37.0-47.0); Mean Corp Hgb Conc. 29.9 g/dL (33.0-37.0); Mean Corpuscular Hgb 24.2 pg (27.0-31.0); Mean Corpuscular Volume 81.1 fL (81.0-99.0); Mean Platelet Volume 8.8 fL (7.4-10.4); Platelet Count 268 10^3/uL (130-400); Red Blood Cell Count 2.85 10^6/uL (4.20-5.40); White Blood Cell Count 6.8 10^3/uL (4.8-10.8)
[2023-12-19 04:31] LABS: Blood Urea Nitrogen 49 mg/dl (7-17); Carbon Dioxide 19 mmol/L (22-30); Chloride 109 mmol/L (98-107); Estimated Creatinine Clearance 10 ml/min; Glucose 82 mg/dl (70-99); Potassium 3.4 mmol/L (3.5-5.1); Sodium 138 mmol/L (135-145); eGFR 12.38
[2023-12-19] MEDS: DILAUDID 0.25 MG IV ×4 (04:54→20:16)
--- NOTE | 2023-12-19 05:00 | PTCARENOTE ---
pt reassessed. AM labs sent, potassium repleted. oral care provided. pt remains extremely anxious when awake. repositioned with pillows. call castellanos within reach. care ongoing.
[2023-12-19] MEDS: KCL 100 IV (05:17)
--- NOTE | 2023-12-19 06:34 | W.PN.HOSP.TC ---
Today's Communication/Plan
-
.
Assessment / Plan
Assessment / Plan
Physical examination:
General: Awake alert, not in respiratory distress,
HEENT: + NG tube
Cardiovascular system S1-S2 regular
Lungs: no wheezes.
Abdomen: soft, mild central tender, + urostomy bag with clear urine
Right CV drain with purulent urine
MSK: No pedal edema
Neurological: followed commands
Psych: no agitation
# Small bowel obstruction [id number] CT
Repeat CT showing persistent higher level SBO
Mild abd pain
No N/V
HG putting out significant amount
IV fluids
Appreciate surgery help
# Septic Shock
Secondary to emphysematous pyelonephritis
Afebrile
Still on Levophed at 4 mcg
Continue Zosyn
Blood Cx neg
Urine CX c/w klebsiella oxytoca , change ABx to Ancef
IVF-NSS
Holding lisinopril
Recently completed Bactrim as outpatient
Appreciate iCU doctor help
# Hypokalemia-replace
# TME resolving
Non focal
# Lactic acidosis-Normalized.
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 Arce
Stage 3b chronic kidney disease
Nephrolithiasis bilaterally with staghorn calculus 1.7 cm left kidney.
Right-sided percutaneous nephrostomy tube placed on 12/15/2023 by interventional radiology-purulent drainage.
Broad-spectrum antibiotics-Zosyn.
May need nephrectomy on the right side eventually.
Appreciate urology & nephrology help
# Paroxysmal atrial fibrillation-currently in sinus rhythm.
Started on heparin drip ,continue Amiodarone.
No bleeding noted
No chest pain
# Elevated troponin-nonischemic myocardial injury
# Anemia-Due to chronic disease
No evidence of iron or B12 deficiency
Watch hemoglobin closely with heparin drip
# Thrombocytosis-likely secondary to infection follow-Improving
# Acute kidney injury on CKD-stage IIIB, prerenal or ATN in the setting of sepsis
Hold lisinopril
Creatinine down to 3.7 from 4.7
c/w mild IV fluids
Recently completed a course of Bactrim as outpatient
Appreciate nephrology help
# Hyponatremia-likely hypovolemic.
# Hypercalcemia-likely dehydration related. Resolved
# Primary Hypertension-hold lisinopril
# Anxiety and schizophrenia-Per discussion with niece however patient denied schizophrenia
Add PRN Ativan
# Developmental Delay
# Visual impairment - Glaucoma- Continue Eye drops latanoprost and timolol
# Tardive dyskinesia
# Essential tremors
# DVT prophylaxis-Lovenox
# CODE STATUS-Full code per D/W Niece (Pt never fills out paper work or commit)
Discussed with newspaper library manager, surgery, nephrology, cardiology
D/W RN
Total time spent to see the patient, examine the patient on the floor, review data and lab results, discuss treatment plan with patient and nursing staff around 55 minutes
Anticipated Discharge: > 48 hours
Subjective/Interval History
-
Date of Service: December 19, 2023
She is uncomfortable. Not passing gas
Mild abd pain
No chest pain
\\
Night team: no fevers, given IV Ativan for agitation
Objective Data
-
Labs:
Laboratory Results
12/18/23 12/19/23 12/19/23
18:19 01:01 03:44
WBC 6.8
Hgb 7.0 L
Hct 23.1 L
Plt Count 268 D
APTT 112.0 H 86.5 H
Sodium 138
Potassium 3.4 L
Chloride 109 H
Carbon Dioxide 19 L
BUN 49 H
Creatinine 3.7 H
Glucose 82
Calcium 9.0
12/19/23
08:00
WBC
Hgb
Hct
Plt Count
APTT Pending
Sodium
Potassium
Chloride
Carbon Dioxide
BUN
Creatinine
Glucose
Calcium
Vital Signs:
Vital Signs
Temp Pulse Resp BP Pulse Ox
97.9 F 78 13 93/57 98
12/19/23 03:47 12/19/23 06:00 12/19/23 06:00 12/19/23 06:00 12/19/23 06:00
I&O
12/17/23 12/18/23 12/19/23
06:59 06:59 06:59
Intake Total 4518.5 / 4723.5 4658.2 / 4768.7 3827.5 / 3827.5
Output Total 2230 / 2230 2250 / 2250 3880 / 3880
Balance 2288.5 / 2493.5 2408.2 / 2518.7 -52.5 / -52.5
--- NOTE | 2023-12-19 07:58 | W.PN.CD ---
Today's Communication / Plan
-
wean levophed
continue heparin gtt
Impression / Plan
-
73 yo female with h/o bladder cancer, urostomy, HTN admitted with septic shock. She has SBO and also right pyelonephritis. She is on pressors. We are consulted for A fib with RVR.
Paroxysmal A fib
-back in sinus spontaneously
-currently on small dose of levophed
-CHADS2-VASC = 3. continue IV heparin.
Abnormal EKG - transient inferior ST elevation on EKG noted.
- mildly elevated troponin, and no chest pain
-echo: EF 55-60%, aortic sclerosis, mild AR, nl RV
-Troponin peak only 0.06
GUI - acute on chronic CKD.
- creatinine 4.7: Trended down to 3.7. Nephrology following
SBO - acute.
- NG tube in place,
- surgery consulted.
Right pyelonephritis - acute.
- urostomy bag.
- no plan for intervention currently per review of urology note
Echocardiogram 12/15/2023 normal left ventricular function. Aortic sclerosis, mild aortic regurgitation trivial pericardial effusion left pleural effusion.
Subjective: some abd pain but better, no cp, palps or sob.
CCT 30 minutes
Physical Exam
Vital Signs/Labs
Vital Signs
Temp Pulse Resp BP Pulse Ox
98.5 F 80 16 105/55 98
12/19/23 07:42 12/19/23 07:30 12/19/23 07:30 12/19/23 07:30 12/19/23 07:30
12/18/23 12/19/23 12/20/23
06:59 06:59 06:59
Actual Weight 54.7 kg 54.3 kg
12/19/23 03:44
12/19/23 03:44
PT 15.8 Sec (11.4-14.6) H 12/15/23 17:14
INR 1.28 12/15/23 17:14
APTT 86.5 Sec (23.4-35.0) H 12/19/23 01:01
Magnesium 2.3 mg/dl (1.6-2.3) 12/16/23 05:02
TSH 1.72 uIU/ml (0.47-4.68) 12/16/23 05:02
LAB Results
12/16/23 12/16/23
06:00 12:11
Troponin I Cancelled 0.048 H*
Physical Exam
Constitutional: No acute distress
Cardiovascular: Rhythm & rate is regular and Pedal edema is absent
Respiratory: Respiratory effort normal, Lungs clear to auscul., Wheeze Absent, Crackles Absent and Rhonchi Absent
Neuro/Psych: AO x 3
Data Reviewed
-
Date of Service: December 19, 2023
EKG: Other (tele sinus)
--- NOTE | 2023-12-19 08:00 | PTCARENOTE ---
recd pt, handoff at bedside, awake, alert. assessed as noted. NG draining bilious. abd rounded, hypo BS. Heparin infusing, levophed titrated as noted, PTT pending. IV fluids continue as ordered. call castellanos in reach. oral care given. PICC site
intact. c/o back pain. Urostomy stoma site mild protruberance but very pink and not edematous.
[2023-12-19] MEDS: NSS (PRESERVATIVE FREE) 10 ML IV (08:25)
[2023-12-19] MEDS: PROTONIX IV 40 MG IV (08:25)
[2023-12-19 08:55] LABS: APTT 70.8 Sec (23.4-35.0)
--- NOTE | 2023-12-19 09:09 | VNURNOTE ---
Patient is current with [facility] since 11/16 w/SN/PT/OT/CASHIER WRAPPER/WASHATERIA ATTENDANT, will monitor progress and plan at discharge.
Patient lives alone with no immediate family nearby.
[2023-12-19] MEDS: TIMOPTIC 0.5% OPHTHALMIC SOLUTION 1 DROP BOTH EYES (09:14)
[2023-12-19] MEDS: ANCEF 5 IV ×2 (09:16→22:11)
[2023-12-19] MEDS: HEPARIN 25000 UNITS/250 ML IV (10:08)
--- NOTE | 2023-12-19 10:42 | W.PN.INTV ---
Documented by User: Kael Boudreaux MD, Resident 12/19/23 10:53
Today's Communication / Plan
Recommendations
Wean off Levophed
Continue current gtt.
Check mag level
Replete potassium
Assessment
-
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 There has been no evidence of recurrence, with stable inguinal lymphadenopathy. Of note she
has history of gross hematuria with recurrence, known extensive staghorn calculus with nephrolithiasis. Patient with thick blood and purulent urine in the ostomy bag which appears to be intermittent, resolves with antibiotic therapy. Most recently
was started on Macrodantin as outpatient now presents with sepsis, tachycardia, hypotension, lethargy. We are asked to help from critical care standpoint 12/15/2023
Septic shock, hypotension
Requiring pressors
Back pain
S/P percutaneous nephrostomy tube placement per IR 12/14
Imaging worrisome for emphysematous pyelonephritis
History of nephrolithiasis, large calculi per imaging in the past
Complex renal cysts
Sinus tachycardia
Abnormal EKG
Inferior ST elevation, transient
Incomplete right bundle branch block
Lethargy, mental status changes
Improved with IV fluids
Leukocytosis/anemia
History of recurrent UTI
Recent course of Bactrim November 2023
Possible ileus
NG tube placed in ED
Large bilious volume removed
Large gastric bubble per abdominal imaging
Acute renal insufficiency, creatinine 3.7
Baseline 1.5
Hyponatremia/hyperkalemia
Elevated lactate
Paroxysmal atrial fibrillation, now on heparin
Conditions present prior to admission:
Bladder cancer 2005
Squamous cell
Status post radical cystectomy with ileal conduit urinary diversion ([facility])
Follows urology ([facility])
No evidence of recurrence since
Chronic kidney disease, baseline 1.5
Generalized anxiety disorder
Hx of Tardive dyskinesia
Bipolar disorder
Chronic lymphedema
Cachexia
History of multiple falls
Plan/recommendations
Clinically improved
Remains on norepinephrine, weaning 4 mcg/min
percutaneous drainage pus
Tachycardia improved, atrial fibrillation noted. Patient now on heparin therapy per cardiology
History of chronic urological issues, staghorn calculi, presented with back pain
Recent course of Bactrim as outpatient with purulent output via urostomy bag
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
Urine culture positive for Klebsiella
Nephrostomy tube in place, draining pus
d/c Zosyn therapy 12/19/2023
Switch Zosyn to cefazolin 12/19/2023
Preliminary blood cultures no growth at 72 hours
Creatinine down trended to 3.7 05-13 (baseline 1.5)
Nephrology following
Glucose 82 today 12/19/2023
Continue IV fluids, D5 normal with saline
Recent UA from 12/06/2023 abnormal. Patient apparently completed course of Bactrim as outpatient, Macrodantin therapy also noted
Per urology, patient will eventually require nephrectomy, no intervention indicated at this juncture
Hypokalemia
K 3.4- 12/19/2023
replete
On admission, EKG at 14:[address] elevation
Repeat EKG 12-14 at 15:41 without any evidence of ST elevation, nonspecific ST abnormalities
Incomplete right lower branch block
Significant ileus noted, large gastric bubble, possible small bowel obstruction per abdominal imaging
Echocardiogram with normal biventricular function, no significant valvular disease
Patient now on heparin and amiodarone therapy for atrial fibrillation
Cardiology following
Suspect possible bowel obstruction
Surgery following. NG tube in place, significant output continues
Abdominal CT 12-14 without any obvious mass per report
Ileus
Repeat CT with p.o. contrast 12-17:
1. Technically challenging evaluation of the GI tract secondary to absence of intravenous contrast and paucity of intra-abdominal fat. The stomach remains significantly distended with dilute oral contrast with multiple dilated proximal and mid
small bowel loops measuring up to 3.5 cm. There appear to be several decompressed ileal loops of the right lower quadrant suggesting the presence of a mechanical obstruction. The colon is also largely decompressed with moderate rectal distention
with wall thickening and circumferential stranding suggesting possible stercoral colitis. Mild amount of central mesenteric edema.
2. 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 Mildly improved hydronephrosis and stranding. Several renal calculi remain within the left
kidney. Right lower quadrant ileal conduit.
3. Small bilateral pleural effusions with confluent airspace consolidation within the adjacent left lower lobe, likely atelectasis.
Presently, patient denies pain. Dilaudid as needed, oxycodone as needed
DVT prophylaxis: On heparin drip for atrial fibrillation
GI prophylaxis: Remains on Protonix
Subjective Dataa
Subjective Data
Date of Service:
Date of Service: December 19, 2023
Chief Complaint: [employer] Follow Up
Subjective:
No overnight events. Patient awake, comfortable with no complaints. Denies shortness of breath, denies chest pain
Review of Systems
General: Fever (n) and Chills (n)
Cardiopulmonary: Dyspnea (n)
GI: Abdominal Pain (n) and Nausea (n)
Objective Data
Data Reviewed
Vital Signs / I&O / Oxygen:
Vital Signs
Temp Pulse Resp BP Pulse Ox
98.5 F 90 19 100/75 97
12/19/23 07:42 12/19/23 10:00 12/19/23 10:00 12/19/23 09:56 12/19/23 10:00
Intake and Output
12/18/23 12/19/23 12/20/23
06:59 06:59 06:59
Intake Total 4658.2 / 4768.7 3827.5 / 3928.5 547.6 / 547.6
Output Total 2250 / 2250 3880 / 3880 300 / 300
Balance 2408.2 / 2518.7 -52.5 / 48.5 247.6 / 247.6
SaO2 97
Physical Exam
General: Comfortable (Cachectic), Other (Right upper extremity PICC line) and Other (Percutaneous nephrostomy tube with pus)
HEENT: Normocephalic and Anicteric
Cardiovascular: S1-S2, Regular Rhythm, Murmur (n) and Rub (n)
Respiratory: Wheeze (n), Crackles (n) and Rhonchi (n)
GI: Soft, Distended (Mildly distended), Non Tender, NG Tube and Other (Urostomy intact)
Neurology: Awake and No Motor Deficits (Moves all extremities, generally weak)
Skin: Cyanosis (n), Jaundice (n) and Rash (n)
Labs/Micro/Reports
Lab Data
12/19/23 03:44
12/19/23 03:44
Laboratory Results
12/18/23 12/18/23 12/19/23
11:05 18:19 01:01
APTT 124.0 H 112.0 H 86.5 H
12/19/23
08:33
APTT 70.8 H
Microbiology
12/15/23 14:39 Blood/Venous Blood Culture - Preliminary
No Growth in 72 hours- Final report to follow
12/15/23 13:58 Blood/Venous Blood Culture - Preliminary
No Growth in 72 hours- Final report to follow
12/15/23 18:31 Urine Urine Culture - Final
Klebsiella oxytoca

Documented by User: Senthil Laws MD 12/19/23 11:29
Today's Communication / Plan
Recommendations
Weaning off Levophed as tolerated
Check mag level
Replete potassium
Atb
Assessment
-
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 There has been no evidence of recurrence, with stable inguinal lymphadenopathy. Of note she
has history of gross hematuria with recurrence, known extensive staghorn calculus with nephrolithiasis. Patient with thick blood and purulent urine in the ostomy bag which appears to be intermittent, resolves with antibiotic therapy. Most recently
was started on Macrodantin as outpatient now presents with sepsis, tachycardia, hypotension, lethargy. We are asked to help from critical care standpoint 12/15/2023
Septic shock, hypotension
Requiring pressors
S/P percutaneous nephrostomy tube placement per IR 12/14
Imaging worrisome for emphysematous pyelonephritis
History of nephrolithiasis, large calculi per imaging in the past
Complex renal cysts
Bowel obstruction
Possible ileus vs bowel obstruction/adhesions
NG tube placed in ED: large bilious volume removed
Large gastric bubble per abdominal imaging
Sinus tachycardia
Abnormal EKG
Inferior ST elevation, transient
Incomplete right bundle branch block
S/p lethargy, mental status changes
Improved with IV fluids
Leukocytosis/anemia
History of recurrent UTI
Recent course of Bactrim November 2023
Acute renal insufficiency, creatinine 3.7
Baseline 1.5
Hyponatremia/hyperkalemia
Elevated lactate
Paroxysmal atrial fibrillation, now on heparin
Conditions present prior to admission:
Bladder cancer 2005
Squamous cell
Status post radical cystectomy with ileal conduit urinary diversion ([facility])
Follows urology ([facility])
No evidence of recurrence since
Chronic kidney disease, baseline 1.5
Generalized anxiety disorder
Hx of Tardive dyskinesia
Bipolar disorder
Chronic lymphedema
Cachexia
History of multiple falls
Plan/recommendations
Clinically improved
Remains on norepinephrine, weaning 4 to 2 mcg/min, follow response, d/c if appropriate
percutaneous drainage pus
Tachycardia improved, atrial fibrillation noted. Patient now on heparin therapy per cardiology
History of chronic urological issues, staghorn calculi, presented with back pain
Recent course of Bactrim as outpatient with purulent output via urostomy bag
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
Urine culture positive for Klebsiella
Nephrostomy tube in place, draining pus
d/c Zosyn therapy 12/19/2023
Switch Zosyn to cefazolin 12/19/2023
Preliminary blood cultures no growth at [address] at RUE 12-14
Bowel obstruction
Possible ileus vs bowel obstruction/adhesions
NG tube placed in ED: large bilious volume removed
Large gastric bubble per abdominal imaging
Abdominal CT 12-14 without any obvious mass per report
Repeat CT with p.o. contrast 12-17:
1. Technically challenging evaluation of the GI tract secondary to absence of intravenous contrast and paucity of intra-abdominal fat. The stomach remains significantly distended with dilute oral contrast with multiple dilated proximal and mid
small bowel loops measuring up to 3.5 cm. There appear to be several decompressed ileal loops of the right lower quadrant suggesting the presence of a mechanical obstruction. The colon is also largely decompressed with moderate rectal distention
with wall thickening and circumferential stranding suggesting possible stercoral colitis. Mild amount of central mesenteric edema.
2. 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 Mildly improved hydronephrosis and stranding. Several renal calculi remain within the left
kidney. Right lower quadrant ileal conduit.
3. Small bilateral pleural effusions with confluent airspace consolidation within the adjacent left lower lobe, likely atelectasis.
Surgery following
Low concern for bowel ischemia or perforation given HD stability and normalization of WBC
Could need exploratory laparotomy and extensive lysis of adhesions with potential risks of bowel injury or disruption of ileal conduit (likely be a several hour long procedure)
Creatinine down trended to 3.7 - (baseline 1.5)
Nephrology following
Glucose 82 12/19/2023, NPO
Continue IV fluids, NS changed to D5NS c K 40 [id number]
May need to start TPN soon as rec by Sx
Recent UA from 12/06/2023 abnormal. Patient apparently completed course of Bactrim as outpatient, Macrodantin therapy also noted
Per urology, patient will eventually require nephrectomy, no intervention indicated at this juncture
Hypokalemia
K 3.4- 12/19/2023
Repleting
Check Mg
On admission, EKG at 14:[address] elevation
Repeat EKG 12-14 at 15:41 without any evidence of ST elevation, nonspecific ST abnormalities
Incomplete right lower branch block
Significant ileus noted, large gastric bubble, possible small bowel obstruction per abdominal imaging
Echocardiogram with normal biventricular function, no significant valvular disease
Patient now on heparin and amiodarone therapy for atrial fibrillation
Cardiology following
Presently, patient denies pain. Dilaudid as needed, oxycodone as needed
DVT prophylaxis: On heparin drip for atrial fibrillation
GI prophylaxis: Remains on Protonix
Critical care time: 35 min
D/w MDT
ATTENDING PHYSICIAN ATTESTATION:
(Follow-up Visit:)
I personally saw and evaluated the patient along with the Resident Dr Hughes.
Discussed with Resident and discussed in rounds with MDT.
I agree with Resident�s findings and plan as documented in the resident�s note, which was edited by myself.
Subjective Dataa
Subjective Data
Subjective:
No overnight events. Patient awake, comfortable with no complaints. Denies shortness of breath, denies chest pain
Respiratory sorensen remains stable on room air at rest
Borderline hypoglycemia earlier today, patient remains n.p.o. at this moment
Review of Systems
GI: Vomiting (n) and Diarrhea (n)
Neuro: Weakness
Objective Data
Physical Exam
General: Other (Percutaneous nephrostomy tube)
HEENT: Moist Mucous Membranes and Thrush (n)
Cardiovascular: JVD (n), Peripheral Edema (n) and Calf Tenderness (n)
Respiratory: Accessory Resp Muscle Use (n) and Stridor (n)
GI: NG Tube (L nostril )
Neurology: AO x 3
--- NOTE | 2023-12-19 11:05 | W.PN.GS2 ---
Today's Communication / Plan
-
-- X-ray abdomen to assess contrast progression
-- NPO, IVF, NGT decompression
Assessment / Plan
-
73 yo female with a history of bladder ca and cystectomy with ileal conduit creation at [facility] in 2005 who presents with back pain and nausea from home. Admitted with urosepsis. In addition to abnormal urologic findings CT with possible SBO vs ileus,
limited to lack of PO contrast. Stomach was markedly distended.
Initially hypothermic, currently normothermic. BP stable on Levophed.
Leukocytosis resolved
NGT outputs remain high, bilious with no passage of flatus/stool. Enemas ordered by medical service over the weekend with no BM's
The natural history pathophysiology of bowel obstructions were discussed. No significant clinical progression over the past [address] scan imaging demonstrates persistent obstruction with a significantly dilated stomach. We discussed
that she is increasingly likely to need surgical management for her bowel obstruction. Low concern for bowel ischemia or perforation given HD stability and normalization of WBC. This would involve an exploratory laparotomy and extensive lysis of
adhesions with potential risks of bowel injury or disruption of ileal conduit. This would likely be a several hour long procedure. Patient is resistant to operative intervention at this time, but overall understanding. Plan for continued bowel
rest and X-ray abdomen. Will update niece.
-- X-ray abdomen to assess contrast progression
-- NPO, IVF, NGT decompression
-- Will need PICC/TPN if no return of bowel function in the days to come
-- Minimize narcotics, correct lytes, OOB as able
Subjective Data
-
Date of Service: December 19, 2023
Denies worsening abdominal pain, nausea, or vomiting. No flatus or BM.
Objective Data
-
Intake and Output
12/18/23 12/19/23 12/20/23
06:59 06:59 06:59
Intake Total 4658.2 / 4768.7 3827.5 / 3928.5 547.6 / 547.6
Output Total 2250 / 2250 3880 / 3880 300 / 300
Balance 2408.2 / 2518.7 -52.5 / 48.5 247.6 / 247.6
Intake:
IV fluids (Total) 4508.2 / 4618.7 2437.5 / 2538.5 383.6 / 383.6
Levo 900.2 / 922.7 356.5 / 371.5 37.6 / 37.6
Nss 1,000 ml @ 75 mls/hr IV . 3300 / 3375 1800 / 1875 300 / 300
[id number] CALLIE Rx#:[id number]
heparin 308 / 321 281 / 292 46 / 46
IV piggybacks 150 / 150 370.0 / 370.0 134 / 134
Amount instilled into GI Tube ( 1020 / 1020 30 / 30
Total)
[place] Sump 1020 / 1020 30 / 30
Output:
Drain Output (Total) 50 / 50
Right Back Placed in IR 50 / 50
Urinary Drain Output (Total) 50 / 50 30 / 30
Right Nephrostomy 50 / 50 30 / 30
Gastrointestinal tube output ( 775 / 775 2450 / 2450
Total)
[place] Sump 775 / 775 2450 / 2450
Urostomy output 1375 / 1375 1400 / 1400 300 / 300
Vital Signs
Temp Pulse Resp BP Pulse Ox
98.5 F 90 19 100/75 97
12/19/23 07:42 12/19/23 10:00 12/19/23 10:00 12/19/23 09:56 12/19/23 10:00
Lab Results
12/19/23 03:44
12/19/23 03:44
Calcium 9.0 mg/dl (8.4-10.2) 12/19/23 03:44
Magnesium 2.3 mg/dl (1.6-2.3) 12/16/23 05:02
Total Bilirubin 0.4 mg/dl (0.2-1.3) 12/15/23 13:58
AST 22 U/L (14-36) 12/15/23 13:58
ALT 25 U/L (0-35) 12/15/23 13:58
Alkaline Phosphatase 100 U/L (38-126) 12/15/23 13:58
Total Protein 7.4 g/dl (6.3-8.2) 12/15/23 13:58
Albumin 3.9 g/dl (3.5-5.0) 12/15/23 13:58
Physical Exam
-
Gen: NAD
Abd: soft, tender to palpation in LUQ, distended, tympanitic, non-peritoneal (no rebound or guarding), urostomy PPV - clear urine
[2023-12-19] MEDS: D5/0.9% with KCL 20 MEQ 1000 IV ×2 (11:17→23:39)
[2023-12-19 11:23] LABS: Magnesium 1.8 mg/dl (1.6-2.3)
--- NOTE | 2023-12-19 12:00 | PTCARENOTE ---
reassessed. NG continuing to drain bilious. hypoactive bowel sounds throughout. No other change. OOB by PT, back to bed mod assist and cuing. nephrostomy tube large amount dark zazueta frothy pus emptied.
--- NOTE | 2023-12-19 12:26 | PN.CDI ---
Addendum entered and electronically signed by Genet Steele MD 12/19/23 12:51:
Severe protein calorie malnutrition
Original Note:
CDI
- -
CDI:
Physician Documentation Request
Admit Date: 12/15/23 15:45
Dear Doctor Cedric,
Patient admitted for sepsis.
12/17 Circle Shear Operator Assessment: 'Per ASPEN/AND guidelines, pt meets for severe malnutrition in the context of chronic illness as evidenced by < 75% intake est needs x > 1 month, >5% weight loss x 1 month, muscle loss.'
Based on the information, which of the following most accurately represents the patient's nutritional status?
Severe protein calorie malnutrition
Other
Mcbain Criteria ([facility] Hospitalist 2017)
2 or more criteria must be present for either
non severe or severe malnutrition
Note that the criteria differs related to the
presence of an acute or chronic illness
Acute Illness Chronic Illness
Energy Intake Non Severe: <75% for >7 days Non Severe: <75% for >1 month
Severe: <50% for >5 days Severe: <75% for >1 month
Weight Loss Non Severe: 1-2% over 1 week Non Severe: 5% over 1 month
5% over 1 month 7.5% over 3 months
7.5% over 3 months 10% over 6 months
1 year N/A 20% over 1 year
Severe: >2% over 1 week Severe: >5% over 1 month
>5% over 1 month >7.5% over 3 months
>7.5% over 3 months >10% over 6 months
1 year N/A >20% over 1 year
Body Fat Non Severe: Mild Decrease Non Severe: Mild Loss
Severe: Moderate Decrease Severe: Severe Loss
Muscle Mass Non Severe: Mild Decrease Non Severe: Mild Loss
Severe: Moderate Decrease Severe: Severe Loss
Fluid Accumulation Non Severe: Mild Accumulation Non Severe: Mild Accumulation
Severe: Moderate to severe Severe: Moderate to severe
accumulation accumulation
Reduced Mosquito Sprayer Strength Non Severe: N/A Non Severe: N/A
Severe: Measurably reduced Severe: Measurably reduced
Additional criteria that can be used to Determine if Mild or Moderate Malnutrition (Merck Manual 2018)
Mild Moderate Severe
Albumin gm/dl <3.0 gm/dl <2.5 gm/dl <2.0 gm/dl
Pre Albumin mg/dl <15 gm/dl <10 mg/dl <5.0 mg/dl
BMI <18.5 <17 <16
Use of terms such as suspected, likely, concern for, or probable (associated with a specific diagnosis that is being evaluated, monitored, or treated as if it exists) are acceptable and can be coded in the inpatient setting, when documented at the
time of discharge.
Thank you,
Yvonne Hewitt RN, BSN
CDI Specialist
Available via [facility] text
Please use your independent medical judgment in providing your response.
--- NOTE | 2023-12-19 14:10 | CM ---
CM following re: discharge planning.
Discussed in Rounds, reviewed pt's chart, met with pt. Per Rounds meeting, continue to wean pressors, continue antibiotics, NPO, IVF, NGT decompression, continue supportive care.
PT and OT evaluation noted. pt is aware, preferred [facility]. A referral to [facility] made.
Pt lives alone in a mobile home, has a cat and per pt her cat is taking care of by her neighbor Mark. Pt reports she does not have immediate family here, her niece and a sister live in [place]. Pt reports she ambulates with a walker at baseline, had VN
services in the past and pt cannot recall the name of VN provider. Pt reports she had some falls at home and now she is afraid even to stand.
D/C plan: [facility] when medically stable.
CM will follow with discharge plan updates as hospitalization progresses
--- NOTE | 2023-12-19 14:31 | W.PN.NEPH.PH ---
Today's Communication / Plan
-
- Cr stable
- continue fluid replacement
Assessment/Plan
-
Impression:
Uro-Sepsis with SBO and right pyelonephritis
Acute kidney injury (baseline CKD ~1.5)
Status post right percutaneous nephrostomy tube placement 12/15/2023
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
Ileal conduit status post cystectomy in 2005
History of hypertension
Anemia
A-fib with RVR
Thrombocytosis
Lactic acidosis
Hypocalcemia
Plan:
GUI:
-Likely prerenal in precipitated in setting of sepsis with hemodynamic collapse and possible obstructive component in setting of right pyelonephritis status post right percutaneous nephrostomy tube placement. per urology will need a R nephrectomy
and L stone removal
-Cr stable at 3.7
-having some polyuria and high GI tube output
-Maintain isotonic saline for blood pressure support
-Remains on norepinephrine pressor support to keep MAP 65 or greater (weaning down)
-Antihypertensives held including lisinopril currently
-Closely monitor urostomy and right PCN output
-Zosyn renally dosed
-No acute dialysis requirement
-Patient is critically ill requiring pressor support in the setting of advancing acute kidney
-
-
Date of Service: December 19, 2023
CC / HPI / ROS
-
Chief Complaint:
GUI
History of Present Illness:
GUI with Cr down to 3.7, peak 4.7
Hemodynamically labile
On heparin in setting of A-fib
Review of Systems:
Nonoliguric via urostomy
NG tube with output of 2.5, urostomy with1.9L
Afebrile
No chest pain or shortness of breath
right PCN
Labs
-
Labs:
WBC 6.8 10^3/uL (4.8-10.8) 12/19/23 03:44
RBC 2.85 10^6/uL (4.20-5.40) L 12/19/23 03:44
Hgb 7.0 g/dL (12.0-16.0) L 12/19/23 03:44
Hct 23.1 % (37.0-47.0) L 12/19/23 03:44
Plt Count 268 10^3/uL (130-400) D 12/19/23 03:44
Sodium 138 mmol/L (135-145) 12/19/23 03:44
Potassium 3.4 mmol/L (3.5-5.1) L 12/19/23 03:44
Chloride 109 mmol/L (98-107) H 12/19/23 03:44
Carbon Dioxide 19 mmol/L (22-30) L 12/19/23 03:44
BUN 49 mg/dl (7-17) H 12/19/23 03:44
Creatinine 3.7 mg/dL (0.6-1.0) H 12/19/23 03:44
eGFR 12.38 12/19/23 03:44
Glucose 82 mg/dl (70-99) 12/19/23 03:44
Calcium 9.0 mg/dl (8.4-10.2) 12/19/23 03:44
Albumin 3.9 g/dl (3.5-5.0) 12/15/23 13:58
Physical Exam
-
Vital Signs:
Vital Signs
Temp Pulse Resp BP Pulse Ox
98.0 F 86 18 106/59 98
12/19/23 11:35 12/19/23 13:00 12/19/23 13:00 12/19/23 13:00 12/19/23 13:00
Cardiovascular:: Regular rate and rhythm
Respiratory:: Bilateral: Coarse
Lung Excursion:: Normal
Abdomen:: Nontender and Soft
Bowel Sounds:: Normal
Extremity Edema:: None: Bilateral:
Condon Catheter: No
[2023-12-19 15:43] LABS: APTT 93.4 Sec (23.4-35.0)
[2023-12-19] MEDS: LIDOCAINE 4% PATCH 1 PATCH TOPICAL (16:00)
--- NOTE | 2023-12-19 16:29 | PTCARENOTE ---
OOB again, much cuing, legs stiff, presently comfortable in chair. Heparin continues, PTT therapeutic dose. NG draining bilious.
--- NOTE | 2023-12-19 18:13 | PTCARENOTE ---
back to bed. no change. talking on phone.
--- NOTE | 2023-12-19 18:27 | W.PN.URO.CBU ---
Today's Communication / Plan
-
See A/P
Planning for likely surgery later this week
Assessment / Plan
-
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
- Given persistent SBO without improvement over several days, need for surgical management is becoming more likely
- If going to OR for exlap, would recommend attempt at right nephrectomy of XGP kidney at the same time to avoid another major operation and obtain full source control. Reviewed with patient and her niece this will be a difficult operation with high
risk of complication
- This is additionally complicated by patient's anemia and refusal of blood products as a Bahai. In discussion with patient and her niece, the patient would prefer to during or after surgery than to receive blood products. We
discussed this is a significant possibility, especially with the typical bleeding during removal of an adherent XGP kidney.
- Advised placement of left nephroureterostomy tube to ensure adequate drainage of left kidney. Will discuss with IR and see if this can be done early AM
- Will continue to discuss with general surgery. Patient to be added tentatively to the OR schedule for afternoon
Diagnosis
-
Date of Service: December 19, 2023
-
Patient Diagnosis:
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
Left Renal Stones
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
Resolving sepsis
Small bowel obstruction
Subjective
-
no progress in resolution of SBO
Objective
-
Vital Signs
Temp Pulse Resp BP Pulse Ox
97.8 F 92 20 101/66 99
12/19/23 16:16 12/19/23 18:00 12/19/23 18:00 12/19/23 17:00 12/19/23 18:00
Intake and Output
05/13/24 05/14/24 05/15/24
06:59 06:59 06:59
Intake Total 4658.2 / 4768.7 3827.5 / 3928.5 1277.4 / 1277.4
Output Total 2250 / 2250 3880 / 3880 1620 / 1620
Balance 2408.2 / 2518.7 -52.5 / 48.5 -342.6 / -342.6
Intake:
IV fluids (Total) 4508.2 / 4618.7 2437.5 / 2538.5 1083.4 / 1083.4
D5/0.9% with KCL 20 MEQ 20 meq 525 / 525
In 1,000 ml @ 75 mls/hr IV .
[id number] CALLIE Rx#:[id number]
Levo 900.2 / 922.7 356.5 / 371.5 41.4 / 41.4
Nss 1,000 ml @ 75 mls/hr IV . 3300 / 3375 1800 / 1875 375 / 375
[id number] CALLIE Rx#:[id number]
heparin 308 / 321 281 / 292 142 / 142
IV piggybacks 150 / 150 370.0 / 370.0 134 / 134
Amount instilled into GI Tube ( 1020 / 1020 60 / 60
Total)
Story Sump 1020 / 1020 60 / 60
Output:
Drain Output (Total) 50 / 50
Right Back Placed in IR 50 / 50
Urinary Drain Output (Total) 50 / 50 30 / 30 95 / 95
Right Nephrostomy 50 / 50 30 / 30 95 / 95
Gastrointestinal tube output ( 775 / 775 2450 / 2450 700 / 700
Total)
Story Sump 775 / 775 2450 / 2450 700 / 700
Urostomy output 1375 / 1375 1400 / 1400 825 / 825
Laboratory Results
12/19/23 03:44
12/19/23 03:44
Physical Exam
-
General - well developed, no acute distress
Chest - clear bilaterally
Abdomen - distended, NGT in place bilious
R PCN with clear urine drainage
Skin - warm & dry with no rash
Neuro - AOx3, no motor deficits
--- NOTE | 2023-12-19 20:00 | PTCARENOTE ---
rec`d pt at 1900 resting in bed. pt AAOx3. anxious. pt goes from happy to tears in a matter of a conversation. SR on monitor,hr 80s-90s. afebrile. lower extremity trace edema. Rt dual luman picc running with fluids and heparin. pt also has a capped
Left W. RA satting at 99%. diminished lung sounds, NGT to LIWS, rt nare, draining black. nephrostomy dressing on rt lower back c/d/i. urostomy draining clear yellow urine. pain covered with PRN. education provided to the pt about goals of care.
pt`s neighbor in room with pt. call castellanos in reach. pt adjusted several times in bed for comfort. safe environment maintained.
[2023-12-19] MEDS: XALATAN OPHTHALMIC SOLUTION 1 DROP BOTH EYES (21:56)
[2023-12-19] MEDS: ATIVAN 0.5 MG IV (22:12)
[2023-12-19 22:28] LABS: APTT 136.7 Sec (23.4-35.0)
[2023-12-20] VITALS (39 sets, daily range): BP systolic 81–127; BP diastolic 49–86; PULSE 77; O2SAT 99; BMI 22.5
--- NOTE | 2023-12-20 | PTCARENOTE ---
pt reassessed. no changes in pt assessment. heparin gtt adjusted per protocol.call castellanos in reach
--- NOTE | 2023-12-20 04:00 | PTCARENOTE ---
pt reassessed. no changes in pt assessment.
--- NOTE | 2023-12-20 04:40 | DOWNTIME ---
There was a [facility] [employer] Downtime on 12/19/2023 from 0100 to 12/20/2023 at 0300. Downtime documentation of patient's care, including medication administrations, has been reconciled in the electronic record per guidelines. Refer to the
patient's paper chart under the miscellaneous tab to see printed paper medication records and downtime forms.
[2023-12-20] MEDS: ATIVAN 0.5 MG IV ×2 (05:05→23:12)
[2023-12-20 05:35] LABS: Hematocrit 21.7 % (37.0-47.0); Mean Corp Hgb Conc. 30.9 g/dL (33.0-37.0); Mean Corpuscular Hgb 24.4 pg (27.0-31.0); Mean Corpuscular Volume 78.9 fL (81.0-99.0); Mean Platelet Volume 9.3 fL (7.4-10.4); Platelet Count 201 10^3/uL (130-400); Red Blood Cell Count 2.75 10^6/uL (4.20-5.40); Red Cell Dist. Width 20.4 % (11.5-14.5); White Blood Cell Count 4.8 10^3/uL (4.8-10.8)
[2023-12-20 05:43] LABS: APTT 83.5 Sec (23.4-35.0)
[2023-12-20 06:18] LABS: Hemoglobin 6.7 g/dL (12.0-16.0)
--- NOTE | 2023-12-20 06:26 | W.PN.HOSP.TC ---
Today's Communication/Plan
-
.
Assessment / Plan
Assessment / Plan
Physical examination:
General: Awake alert, not in respiratory distress,
HEENT: + NG tube
Cardiovascular system S1-S2 regular
Lungs: no wheezes.
Abdomen: soft, mild central tender, distended, + urostomy bag with clear urine
Right CV drain with purulent urine
MSK: No pedal edema
Neurological: followed commands
Psych: no agitation
# Small bowel obstruction kive-nmdic-emb CT
Repeat CT showing persistent higher level SBO
Anemia does not help recovery and increases patient's risk for surgery. Patient and family refused transfusion due to taoist beliefs.
Abd pain
No N/V
c/w NG on suction.
IV fluids
Appreciate surgery help
# Septic Shock
Secondary to emphysematous pyelonephritis
Afebrile
Off Levophed since 12/18
C/W Ancef , renally adjusted
Blood Cx neg
Urine CX c/w klebsiella oxytoca , change ABx to Ancef
IVF-NSS/ Dextrose and sodium bicarbonate
Holding lisinopril
Recently completed Bactrim as outpatient
Appreciate ICU doctor help
# Hypokalemia-replaced
# TME resolving
Non focal
# Lactic acidosis-Normalized.
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 Arce
Stage 3b chronic kidney disease
Nonoliguric via urostomy
Nephrolithiasis bilaterally with staghorn calculus 1.7 cm left kidney.
Right-sided percutaneous nephrostomy tube placed on 12/15/2023 by interventional radiology-purulent drainage.
Broad-spectrum antibiotics-Zosyn.
Right nephrectomy will be helpful to control source of infection.
Appreciate urology & nephrology help
# Paroxysmal atrial fibrillation-currently in sinus rhythm.
Started on heparin drip ,continue Amiodarone.
No bleeding noted
No chest pain
# Elevated troponin-nonischemic myocardial injury
# Anemia-Due to chronic disease, will HGB at 6.7
Patient and family refused transfusion due due to taoist belief. They are aware of the risks including .
No evidence of iron or B12 deficiency
Watch hemoglobin closely with heparin drip
# Thrombocytosis-likely secondary to infection follow-Improving
# Acute kidney injury on CKD-stage IIIB, metabolic acidosis, prerenal or ATN in the setting of sepsis
Hold lisinopril
Creatinine down to 3.0 from 4.7
c/w IV fluids
Recently completed a course of Bactrim as outpatient
Appreciate nephrology help
# Severe protein-caloric malnutrition, POA.
# Hyponatremia-
# Hypercalcemia-likely dehydration related. Resolved
# Primary Hypertension-hold lisinopril
# Anxiety and schizophrenia-Per discussion with niece however patient denied schizophrenia
Added PRN Ativan
# Developmental Delay
# Visual impairment - Glaucoma- Continue Eye drops latanoprost and timolol
# Tardive dyskinesia
# Essential tremors
# DVT prophylaxis-Lovenox
# CODE STATUS-Full code per D/W Niece (Pt never fills out paper work or commit)
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
D/W RN
Total time spent to see the patient, examine the patient on the floor, review data and lab results, discuss treatment plan with patient and nursing staff around 55 minutes
Anticipated Discharge: > 48 hours
Subjective/Interval History
-
Date of Service: December 20, 2023
Needed Pain medicine with Ativan over night
Objective Data
-
Labs:
Laboratory Results
12/19/23 12/20/23 12/20/23
22:09 05:15 12:00
WBC 4.8
Hgb 6.7 L*
Hct 21.7 L
Plt Count 201 D
APTT 136.7 H 83.5 H Pending
Vital Signs:
Vital Signs
Temp Pulse Resp BP Pulse Ox
98.0 F 89 13 99/58 98
12/20/23 03:42 12/20/23 06:00 12/20/23 06:00 12/20/23 06:00 12/20/23 06:00
I&O
12/18/23 12/19/23 12/20/23
06:59 06:59 06:59
Intake Total 4658.2 / 4768.7 3827.5 / 3928.5 2295.4 / 2295.4
Output Total 2250 / 2250 3880 / 3880 2059 / 2059
Balance 2408.2 / 2518.7 -52.5 / 48.5 235.4 / 235.4
[2023-12-20 07:42] LABS: Blood Urea Nitrogen 42 mg/dl (7-17); Calcium 8.9 mg/dl (8.4-10.2); Estimated Creatinine Clearance 13 ml/min; Glucose 102 mg/dl (70-99); Potassium 3.8 mmol/L (3.5-5.1); Sodium 142 mmol/L (135-145); eGFR 15.92
--- NOTE | 2023-12-20 07:47 | W.PN.INTV ---
Documented by User: Kael Boudreaux MD, Resident 12/20/23 11:24
Today's Communication / Plan
Recommendations
see a/p
Weaning off Levophed
d/c oxycodone
Assessment
-
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 There has been no evidence of recurrence, with stable inguinal lymphadenopathy. Of note she
has history of gross hematuria with recurrence, known extensive staghorn calculus with nephrolithiasis. Patient with thick blood and purulent urine in the ostomy bag which appears to be intermittent, resolves with antibiotic therapy. Most recently
was started on Macrodantin as outpatient now presents with sepsis, tachycardia, hypotension, lethargy. We are asked to help from critical care standpoint 12/15/2023
Septic shock, hypotension
Requiring pressors
S/P percutaneous nephrostomy tube placement per IR 12/14
Imaging worrisome for emphysematous pyelonephritis
History of nephrolithiasis, large calculi per imaging in the past
Complex renal cysts
Bowel obstruction
Possible ileus vs bowel obstruction/adhesions
NG tube placed in ED: large bilious volume removed
Large gastric bubble per abdominal imaging
Sinus tachycardia
Abnormal EKG
Inferior ST elevation, transient
Incomplete right bundle branch block
S/p lethargy, mental status changes
Improved with IV fluids
Leukocytosis/anemia
History of recurrent UTI
Recent course of Bactrim November 2023
Acute renal insufficiency, creatinine 3.0
Baseline 1.5
Hyponatremia/hyperkalemia
Elevated lactate
Paroxysmal atrial fibrillation, now on heparin
Conditions present prior to admission:
Bladder cancer 2005
Squamous cell
Status post radical cystectomy with ileal conduit urinary diversion ([facility])
Follows urology ([facility])
No evidence of recurrence since
Chronic kidney disease, baseline 1.5
Generalized anxiety disorder
Hx of Tardive dyskinesia
Bipolar disorder
Chronic lymphedema
Cachexia
History of multiple falls
Plan/recommendations
Clinically improved
Remains on norepinephrine, weaning off Levophed as tolerated.
percutaneous drainage pus
Tachycardia improved, atrial fibrillation noted. Patient now on heparin therapy per cardiology
History of chronic urological issues, staghorn calculi, presented with back pain
Recent course of Bactrim as outpatient with purulent output via urostomy bag
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
Urine culture positive for Klebsiella
Nephrostomy tube in place, draining pus
d/c Zosyn therapy 12/19/2023
Switch Zosyn to cefazolin 12/19/2023
Preliminary blood cultures no growth at [address] at [facility] 12-14
Bowel obstruction
Possible ileus vs bowel obstruction/adhesions
NG tube placed in ED: large bilious volume removed
Large gastric bubble per abdominal imaging
Abdominal CT 12-14 without any obvious mass per report
Repeat CT with p.o. contrast 12-17:
1. Technically challenging evaluation of the GI tract secondary to absence of intravenous contrast and paucity of intra-abdominal fat. The stomach remains significantly distended with dilute oral contrast with multiple dilated proximal and mid
small bowel loops measuring up to 3.5 cm. There appear to be several decompressed ileal loops of the right lower quadrant suggesting the presence of a mechanical obstruction. The colon is also largely decompressed with moderate rectal distention
with wall thickening and circumferential stranding suggesting possible stercoral colitis. Mild amount of central mesenteric edema.
2. 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 Mildly improved hydronephrosis and stranding. Several renal calculi remain within the left
kidney. Right lower quadrant ileal conduit.
3. Small bilateral pleural effusions with confluent airspace consolidation within the adjacent left lower lobe, likely atelectasis.
Surgery following
Low concern for bowel ischemia or perforation given HD stability and normalization of WBC
Could need exploratory laparotomy and extensive lysis of adhesions with potential risks of bowel injury or disruption of ileal conduit (likely be a several hour long procedure)
Creatinine down trended to 3.0 -15 (baseline 1.5)
Nephrology following
Recent UA from 12/06/2023 abnormal. Patient apparently completed course of Bactrim as outpatient, Macrodantin therapy also noted
Per urology, patient will eventually require nephrectomy, no intervention indicated at this juncture
On admission, EKG at 14:[address] elevation
Repeat EKG 12-14 at 15:41 without any evidence of ST elevation, nonspecific ST abnormalities
Incomplete right lower branch block
Significant ileus noted, large gastric bubble, possible small bowel obstruction per abdominal imaging
Echocardiogram with normal biventricular function, no significant valvular disease
Patient now on heparin and amiodarone therapy for atrial fibrillation
Cardiology following
DVT prophylaxis: On heparin drip for atrial fibrillation
GI prophylaxis: Remains on Protonix
Subjective Dataa
Subjective Data
Date of Service:
Date of Service: December 20, 2023
Chief Complaint: Lower In Supervisor Follow Up
Subjective:
No overnight events. Patient awake, denies shortness of breath, denies chest pain, respirations stable on room air at rest, remains n.p.o.
Review of Systems
General: Fever (n) and Chills (n)
Cardiopulmonary: Dyspnea (n), Cough (n) and Wheezing (n)
GI: Vomiting (n) and Diarrhea (n)
Neuro: Weakness
Objective Data
Data Reviewed
Vital Signs / I&O / Oxygen:
Vital Signs
Temp Pulse Resp BP Pulse Ox
98 F 85 12 98/60 98
12/20/23 07:26 12/20/23 07:00 12/20/23 07:00 12/20/23 07:00 12/20/23 07:00
Intake and Output
12/19/23 12/20/23 12/21/23
06:59 06:59 06:59
Intake Total 3827.5 / 3928.5 2295.4 / 2295.4
Output Total 3880 / 3880 2210 / 2210
Balance -52.5 / 48.5 85.4 / 85.4
SaO2 98
Physical Exam
General: Comfortable (Cachectic), Other (Right upper extremity PICC line) and Other (Percutaneous nephrostomy tube)
HEENT: Normocephalic, Anicteric, Moist Mucous Membranes and Thrush (n)
Cardiovascular: S1-S2, Regular Rhythm, Murmur (n), Rub (n), JVD (n), Peripheral Edema (n) and Calf Tenderness (n)
Respiratory: Wheeze (n), Crackles (n), Rhonchi (n), Accessory Resp Muscle Use (n) and Stridor (n)
GI: Soft, Distended (Mildly distended), Non Tender, NG Tube (L nostril ) and Other (Urostomy intact)
Neurology: Awake, AO x 3 and No Motor Deficits (Moves all extremities, generally weak)
Skin: Cyanosis (n), Jaundice (n) and Rash (n)
Labs/Micro/Reports
Lab Data
12/20/23 05:15
12/20/23 06:37
Laboratory Results
12/19/23 12/19/23 12/19/23
08:33 15:21 22:09
APTT 70.8 H 93.4 H 136.7 H
12/20/23
05:15
APTT 83.5 H
Microbiology
12/15/23 14:39 Blood/Venous Blood Culture - Preliminary
No Growth in 4 days- Final report to follow
12/15/23 13:58 Blood/Venous Blood Culture - Preliminary
No Growth in 4 days- Final report to follow
12/15/23 18:31 Urine Urine Culture - Final
Klebsiella oxytoca

Documented by User: Senthil Laws MD 12/20/23 11:58
Today's Communication / Plan
Recommendations
Weaning off Levophed
L nephrostomy pending
For R nephrectomy 12-20
d/c oxycodone
Assessment
-
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 There has been no evidence of recurrence, with stable inguinal lymphadenopathy. Of note she
has history of gross hematuria with recurrence, known extensive staghorn calculus with nephrolithiasis. Patient with thick blood and purulent urine in the ostomy bag which appears to be intermittent, resolves with antibiotic therapy. Most recently
was started on Macrodantin as outpatient now presents with sepsis, tachycardia, hypotension, lethargy. We are asked to help from critical care standpoint 12/15/2023
Septic shock, hypotension
Requiring pressors
S/P percutaneous nephrostomy tube placement per IR 12/14
Imaging worrisome for emphysematous pyelonephritis
History of nephrolithiasis, large calculi per imaging in the past
Complex renal cysts
Bowel obstruction
Possible ileus vs bowel obstruction/adhesions
NG tube placed in ED: large bilious volume removed
Large gastric bubble per abdominal imaging
Sinus tachycardia
Abnormal EKG
Inferior ST elevation, transient
Incomplete right bundle branch block
S/p lethargy, mental status changes
Improved with IV fluids
Leukocytosis/anemia
History of recurrent UTI
Recent course of Bactrim November 2023
Acute renal insufficiency, creatinine 3.0
Baseline 1.5
Hyponatremia/hyperkalemia
Elevated lactate
Paroxysmal atrial fibrillation, now on heparin
Conditions present prior to admission:
Bladder cancer 2005
Squamous cell
Status post radical cystectomy with ileal conduit urinary diversion ([facility])
Follows urology ([facility])
No evidence of recurrence since
Chronic kidney disease, baseline 1.5
Generalized anxiety disorder
Hx of Tardive dyskinesia
Bipolar disorder
Chronic lymphedema
Cachexia
History of multiple falls
Plan/recommendations
Clinically improved
Remains on norepinephrine, weaning off Levophed as tolerated.
R percutaneous nephrostomy in place
Tachycardia improved, atrial fibrillation noted. Patient now on heparin therapy per cardiology
History of chronic urological issues, staghorn calculi, presented with back pain
Recent course of Bactrim as outpatient with purulent output via urostomy bag
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
Urine culture positive for Klebsiella
Nephrostomy tube in place, draining pus
d/c Zosyn therapy 12/19/2023
Switch Zosyn to cefazolin 12/19/2023
Preliminary blood cultures no growth at 72 hours
Urology following: rec L nephrostomy by IRad to ensure adequate drainage of L kidney prior to surgery 12-[address] at [facility] 12-14
Bowel obstruction
Possible ileus vs bowel obstruction/adhesions
NG tube placed in ED: large bilious volume removed
Large gastric bubble per abdominal imaging
Abdominal CT 12-14 without any obvious mass per report
Repeat CT with p.o. contrast 12-17:
1. Technically challenging evaluation of the GI tract secondary to absence of intravenous contrast and paucity of intra-abdominal fat. The stomach remains significantly distended with dilute oral contrast with multiple dilated proximal and mid
small bowel loops measuring up to 3.5 cm. There appear to be several decompressed ileal loops of the right lower quadrant suggesting the presence of a mechanical obstruction. The colon is also largely decompressed with moderate rectal distention
with wall thickening and circumferential stranding suggesting possible stercoral colitis. Mild amount of central mesenteric edema.
2. 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 Mildly improved hydronephrosis and stranding. Several renal calculi remain within the left
kidney. Right lower quadrant ileal conduit.
3. Small bilateral pleural effusions with confluent airspace consolidation within the adjacent left lower lobe, likely atelectasis.
Surgery following 05-14:
Low concern for bowel ischemia or perforation given HD stability and normalization of WBC
Could need exploratory laparotomy and extensive lysis of adhesions with potential risks of bowel injury or disruption of ileal conduit (likely be a several hour long procedure)
Creatinine down trended to 3.0 12-19 (baseline 1.5)
Nephrology following
Recent UA from 12/06/2023 abnormal. Patient apparently completed course of Bactrim as outpatient, Macrodantin therapy also noted
Per urology, patient will eventually require nephrectomy, no intervention indicated at this juncture
On admission, EKG at 14:[address] elevation
Repeat EKG 12-14 at 15:41 without any evidence of ST elevation, nonspecific ST abnormalities
Incomplete right lower branch block
Significant ileus noted, large gastric bubble, possible small bowel obstruction per abdominal imaging
Echocardiogram with normal biventricular function, no significant valvular disease
Patient now on heparin and amiodarone therapy for atrial fibrillation
Cardiology following
DVT prophylaxis: On heparin drip for atrial fibrillation
GI prophylaxis: Remains on Protonix
Critical care time: 35 min
D/w MDT
ATTENDING PHYSICIAN ATTESTATION:
(Follow-up Visit:)
I personally saw and evaluated the patient along with the Resident Dr Hughes.
Discussed with Resident and discussed in rounds with MDT.
I agree with Resident�s findings and plan as documented in the resident�s note, which was edited by myself.
Subjective Dataa
Review of Systems
General: Sweats
GI: Other (R flank pain)
Objective Data
Physical Exam
GI: Other (R nephrostomy tube)
[2023-12-20] MEDS: PROTONIX IV 40 MG IV (07:49)
[2023-12-20] MEDS: HEPARIN 25000 UNITS/250 ML IV (07:49)
[2023-12-20] MEDS: NSS (PRESERVATIVE FREE) 10 ML IV (07:49)
[2023-12-20] MEDS: TIMOPTIC 0.5% OPHTHALMIC SOLUTION 1 DROP BOTH EYES (07:51)
[2023-12-20 08:02] LABS: Carbon Dioxide 17 mmol/L (22-30); Chloride 116 mmol/L (98-107)
--- NOTE | 2023-12-20 08:12 | W.PN.NEPH.PH ---
Today's Communication / Plan
-
Maintain IV fluid
Assessment/Plan
-
Impression:
Uro-Sepsis with SBO and right pyelonephritis
Acute kidney injury (baseline CKD ~1.5)
Status post right percutaneous nephrostomy tube placement 12/15/2023
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
Ileal conduit status post cystectomy in 2005
History of hypertension
Anemia
A-fib with RVR
Thrombocytosis
Lactic acidosis
Hypocalcemia
Plan:
GUI:
-Likely prerenal in precipitated in setting of sepsis with hemodynamic collapse and possible obstructive component in setting of right pyelonephritis status post right percutaneous nephrostomy tube placement. per urology will need a R nephrectomy
and L stone removal
-Cr improved to 3 and remains grossly nonoliguric via urostomy
-having some polyuria and high GI tube output
-Maintain isotonic saline for blood pressure support as patient remains hypotensive
-Suggest 2 unit blood transfusion given worsening anemia and hypotension
-Remains on norepinephrine pressor support to keep MAP 65 or greater (weaning down)
-Antihypertensives held including lisinopril currently
-Closely monitor urostomy and right PCN output
-Zosyn renally dosed
-No acute dialysis requirement
-Will likely proceed with right nephrectomy later this week
-Patient is critically ill requiring pressor support in the setting of advancing acute kidney
Total Time Spent with Patient (in minutes): 32 minutes
-
-
Date of Service: December 20, 2023
CC / HPI / ROS
-
Chief Complaint:
GUI
History of Present Illness:
GUI with Cr down to 3, peak 4.7
Hemodynamically labile
On heparin in setting of A-fib
Review of Systems:
Nonoliguric via urostomy
Weight stable
NG tube with output of 850, urostomy with 1L
Afebrile
No chest pain or shortness of breath
right PCN
Labs
-
Labs:
WBC 4.8 10^3/uL (4.8-10.8) 12/20/23 05:15
RBC 2.75 10^6/uL (4.20-5.40) L 12/20/23 05:15
Hgb 6.7 g/dL (12.0-16.0) L* 12/20/23 05:15
Hct 21.7 % (37.0-47.0) L 12/20/23 05:15
Plt Count 201 10^3/uL (130-400) D 12/20/23 05:15
Sodium 142 mmol/L (135-145) 12/20/23 06:37
Potassium 3.8 mmol/L (3.5-5.1) 12/20/23 06:37
Chloride 116 mmol/L (98-107) H 12/20/23 06:37
Carbon Dioxide 17 mmol/L (22-30) L 12/20/23 06:37
BUN 42 mg/dl (7-17) H 12/20/23 06:37
Creatinine 3.0 mg/dL (0.6-1.0) H 12/20/23 06:37
eGFR 15.92 12/20/23 06:37
Glucose 102 mg/dl (70-99) H 12/20/23 06:37
Calcium 8.9 mg/dl (8.4-10.2) 12/20/23 06:37
Albumin 3.9 g/dl (3.5-5.0) 12/15/23 13:58
Physical Exam
-
Vital Signs:
Vital Signs
Temp Pulse Resp BP Pulse Ox
98 F 85 12 98/60 98
12/20/23 07:26 12/20/23 07:00 12/20/23 07:00 12/20/23 07:00 12/20/23 07:00
Cardiovascular:: Regular rate and rhythm
Respiratory:: Bilateral: Coarse
Lung Excursion:: Normal
Abdomen:: Distended
Bowel Sounds:: Decreased
Extremity Edema:: None: Bilateral:
Condon Catheter: No
Other Findings::
urostomy and and right PCN
HEENT: NGT
--- NOTE | 2023-12-20 08:27 | PTCARENOTE ---
recd pt c/o dry mouth, 'they won't let me drink anything.' Plan of care reviewed. OOB to chair. SM NG cannister and tube, placement verified, suction confirmed, antireflux valve changed, immed pouring bilious green/dark fluids, 800 ml immed, see
I/O. No symptoms prior to tube adjustment, no change after drainage. gait slow, steady, needed strong cuing.
[2023-12-20] MEDS: KCL 1085 MEQ IV ×4 (09:21→23:11)
[2023-12-20] MEDS: ANCEF 5 IV ×2 (09:32→21:55)
--- NOTE | 2023-12-20 10:46 | PTCARENOTE ---
sleeping in recliner, occas BP recycled. c/o tired. back to bed.
[2023-12-20] MEDS: DILAUDID 0.25 MG IV ×2 (10:58→19:59)
[2023-12-20 12:03] LABS: APTT 97.2 Sec (23.4-35.0)
--- NOTE | 2023-12-20 12:26 | W.PN.CD ---
Today's Communication / Plan
-
Heparin gtt otherwise HR is sinus
Possible OR tomorrow
Impression / Plan
-
73 yo female with h/o bladder cancer, urostomy, HTN admitted with septic shock. She has SBO and also right pyelonephritis, now off pressor support. We are consulted for A fib with RVR, now back in SR.
Paroxysmal A fib
-back in sinus spontaneously
-currently on small dose of levophed
-CHADS2-VASC = 3. continue IV heparin, transition to Eliquis once OK, if concern for bleeding would stop heparin
Abnormal EKG - transient inferior ST elevation on EKG noted.
- mildly elevated troponin, and no chest pain
-echo: EF 55-60%, aortic sclerosis, mild AR, nl RV
-Troponin peak only 0.06 -> likely nonischemic myocardial injury
GUI - acute on chronic CKD.
- creatinine 4.7: Trended down to 3.7. Nephrology following
SBO - acute.
- NG tube in place,
- surgery consulted.
Right pyelonephritis - acute.
- urostomy bag.
- possible surgery tomorrow
Echocardiogram 12/15/2023 normal left ventricular function. Aortic sclerosis, mild aortic regurgitation trivial pericardial effusion left pleural effusion.
Subjective: very anxious and nervous about surgery tomorrow
CCT 31 minutes
Physical Exam
Vital Signs/Labs
Vital Signs
Temp Pulse Resp BP Pulse Ox
97.7 F 76 18 108/74 99
12/20/23 11:05 12/20/23 11:00 12/20/23 11:00 12/20/23 11:00 12/20/23 11:00
12/19/23 12/20/23 12/21/23
06:59 06:59 06:59
Actual Weight 119 lb 11.376 oz 119 lb 0.794 oz
12/20/23 05:15
05/15/24 06:37
PT 15.8 Sec (11.4-14.6) H 12/15/23 17:14
INR 1.28 12/15/23 17:14
APTT 97.2 Sec (23.4-35.0) H 12/20/23 11:43
Magnesium 1.8 mg/dl (1.6-2.3) 12/19/23 03:44
TSH 1.72 uIU/ml (0.47-4.68) 12/16/23 05:02
Physical Exam
Constitutional: Distress
EENT: Anicteric
Cardiovascular: Rhythm & rate is regular and Pedal edema is absent
Respiratory: Respiratory effort normal and Lungs clear to auscul.
Neuro/Psych: AO x 3
Data Reviewed
-
Date of Service: December 20, 2023
Medical Decision Making: Reviewed Test Results
EKG: Tracing Personally Visualized and interpreted (sr)
Echo: Report Reviewed by me
Labs: Labs Reviewed by me
--- NOTE | 2023-12-20 13:34 | CM ---
Addendum entered by Livia Becerril 12/20/23 15:12:
Referral sent to [facility] via [facility] on 12/19/2023; pending response regarding acceptance/bed availability.
Original Note:
I met with Summer in her room. She was sitting up in her chair and was feeling uncomfortable at the time of my visit. She is asking for water, however has an NGT at this time and is not able to drink at this time. Support provided and RN aware of
Summer's request.
Plan: [facility]
--- NOTE | 2023-12-20 13:40 | W.PN.GS2 ---
Today's Communication / Plan
-
NGT/IVF
D/w pt and nideepak woods by phone, all ?s answered
Assessment / Plan
-
73 yo female with a history of bladder ca and cystectomy with ileal conduit creation at [facility] in 2005 who presents with back pain and nausea from home. Admitted with urosepsis. In addition to abnormal urologic findings CT with possible SBO vs ileus,
limited to lack of PO contrast. Stomach was markedly distended.
Initially hypothermic, currently normothermic. BP stable on Levophed.
Leukocytosis resolved
NGT outputs remain high, bilious with no passage of flatus/stool. Enemas ordered by medical service over the weekend with no BM's
The natural history pathophysiology of bowel obstructions were discussed. No significant clinical progression over the past [address] scan imaging demonstrates persistent obstruction with a significantly dilated stomach. We discussed
that she is increasingly likely to need surgical management for her bowel obstruction. Low concern for bowel ischemia or perforation given HD stability and normalization of WBC. This would involve an exploratory laparotomy and extensive lysis of
adhesions with potential risks of bowel injury or disruption of ileal conduit. This would likely be a several hour long procedure. Patient is resistant to operative intervention at this time, but overall understanding. Plan for continued bowel
rest and X-ray abdomen. Will update nideepak.
-- Potential for OR tomorrow with Urology, possible barrier includes patient's wish to avoid transfusion, this may require transfer to outside facility
-- Cont non-op mgmt of sbo for now with NGT/IVF
-- If goes to OR here with Urology, GS would be available on standby in case of bowel involvement
Subjective Data
-
Date of Service: December 20, 2023
Scared of surgery, pain controlled, denies n/v, denies flatus/BM
Objective Data
-
Intake and Output
12/19/23 12/20/23 12/21/23
06:59 06:59 06:59
Intake Total 3827.5 / 3928.5 2295.4 / 2295.4 510 / 510
Output Total 3880 / 3880 2210 / 2210 1225 / 1225
Balance -52.5 / 48.5 85.4 / 85.4 -715 / -715
Intake:
IV fluids (Total) 2437.5 / 2538.5 2101.4 / 2101.4 510 / 510
D5/0.45%NaCl 1,000 ml @ 75 mls/ 375 / 375
hr IV .[id number] CALLIE with KCl 20
Meq with Sodium Bicarbonate 75
Meq Rx#:[id number]
D5/0.9% with KCL 20 MEQ 20 meq 1425 / 1425 75 / 75
In 1,000 ml @ 75 mls/hr IV .
[id number] CALLIE Rx#:[id number]
Levo 356.5 / 371.5 41.4 / 41.4
Nss 1,000 ml @ 75 mls/hr IV . 1800 / 1875 375 / 375
[id number] CALLIE Rx#:[id number]
heparin 281 / 292 260 / 260 60 / 60
IV piggybacks 370.0 / 370.0 134 / 134
Amount instilled into GI Tube ( 1020 / 1020 60 / 60
Total)
[place] Sump 1020 / 1020 60 / 60
Output:
Urinary Drain Output (Total) 30 / 30 135 / 135 25 / 25
Right Nephrostomy 30 / 30 135 / 135 25 / 25
Gastrointestinal tube output ( 2450 / 2450 850 / 850 900 / 900
Total)
[place] Sump 2450 / 2450 850 / 850 900 / 900
Urostomy output 1400 / 1400 1225 / 1225 300 / 300
Vital Signs
Temp Pulse Resp BP Pulse Ox
97.7 F 74 15 88/51 97
12/20/23 11:05 12/20/23 13:30 12/20/23 13:30 12/20/23 13:00 12/20/23 11:37
Lab Results
12/20/23 05:15
12/20/23 06:37
Calcium 8.9 mg/dl (8.4-10.2) 12/20/23 06:37
Magnesium 1.8 mg/dl (1.6-2.3) 12/19/23 03:44
Total Bilirubin 0.4 mg/dl (0.2-1.3) 12/15/23 13:58
AST 22 U/L (14-36) 12/15/23 13:58
ALT 25 U/L (0-35) 12/15/23 13:58
Alkaline Phosphatase 100 U/L (38-126) 12/15/23 13:58
Total Protein 7.4 g/dl (6.3-8.2) 12/15/23 13:58
Albumin 3.9 g/dl (3.5-5.0) 12/15/23 13:58
Physical Exam
-
Gen: NAD
Abd: soft, mild ttp diffusely
--- NOTE | 2023-12-20 15:08 | PTCARENOTE ---
no other change, family visiting, Dr. Laws in to speak with family, per Dr. Arce at this time surgery may be on hold for tomorrow, family aware. pt remains in chair and fairly comfortable. less anxious.
[2023-12-20] MEDS: LIDOCAINE 4% PATCH 1 PATCH TOPICAL (15:27)
--- NOTE | 2023-12-20 18:06 | W.PN.URO.CBU ---
Today's Communication / Plan
-
Recommend against attempt at nephrectomy at this time due to anemia and refusal of blood products
Plans for OR for SBO per general surgery
Assessment / Plan
-
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
- Given persistent SBO without improvement over several days, need for surgical management is becoming more likely
- If going to OR for exlap, right nephrectomy of XGP kidney would ideally be completed at the same time to avoid another major operation and obtain full source control. However, given patient's significant anemia and refusal of blood products,
nephrectomy for XGP kidney is not feasible. This operation commonly has significant bleeding due to fragile and adherent tissue, and midline access is more difficult
- If general surgery determines surgical management of SBO is necessary, would recommend IR placement of left percutaneous nephroureterostomy tube to help identify left ureter intraoperatively. Urology will be available to place catheter in the
urostomy to help identify this portion of small bowel.
- In discussion with general surgery today, will cancel plans for surgery at this point and continue observation for spontaneous return of bowel function
Diagnosis
-
Date of Service: December 20, 2023
-
Patient Diagnosis:
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
Left Renal Stones
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
Resolving sepsis
Small bowel obstruction
Subjective
-
No return of bowel function
Objective
-
Vital Signs
Temp Pulse Resp BP Pulse Ox
97.7 F 89 20 127/65 99
12/20/23 15:00 12/20/23 17:30 12/20/23 17:30 12/20/23 17:00 12/20/23 17:30
Intake and Output
12/19/23 12/20/23 12/21/23
06:59 06:59 06:59
Intake Total 3827.5 / 3928.5 2295.4 / 2295.4 850 / 850
Output Total 3880 / 3880 2210 / 2210 1250 / 1250
Balance -52.5 / 48.5 85.4 / 85.4 -400 / -400
Intake:
IV fluids (Total) 2437.5 / 2538.5 2101.4 / 2101.4 850 / 850
D5/0.45%NaCl 1,000 ml @ 75 mls/ 675 / 675
hr IV .[id number] CALLIE with KCl 20
Meq with Sodium Bicarbonate 75
Meq Rx#:[id number]
D5/0.9% with KCL 20 MEQ 20 meq 1425 / 1425 75 / 75
In 1,000 ml @ 75 mls/hr IV .
[id number] CALLIE Rx#:[id number]
Levo 356.5 / 371.5 41.4 / 41.4
Nss 1,000 ml @ 75 mls/hr IV . 1800 / 1875 375 / 375
[id number] CALLIE Rx#:[id number]
heparin 281 / 292 260 / 260 100 / 100
IV piggybacks 370.0 / 370.0 134 / 134
Amount instilled into GI Tube ( 1020 / 1020 60 / 60
Total)
[place] Sump 1020 / 1020 60 / 60
Output:
Urinary Drain Output (Total) 30 / 30 135 / 135 50 / 50
Right Nephrostomy 30 / 30 135 / 135 50 / 50
Gastrointestinal tube output ( 2450 / 2450 850 / 850 900 / 900
Total)
[place] Sump 2450 / 2450 850 / 850 900 / 900
Urostomy output 1400 / 1400 1225 / 1225 300 / 300
Other:
Number of approximated SMALL 30
amounts of urine
Laboratory Results
12/20/23 05:15
05/15/24 06:37
Physical Exam
-
General - well developed, well nourished, no acute distress
Chest - clear bilaterally
Abdomen - soft, no guarding. NGT bilious
Skin - warm & dry with no rash
Neuro - AOx3, no motor deficits
Extremities - no clubbing, no cyanosis, no edema
--- NOTE | 2023-12-20 18:24 | PTCARENOTE ---
repositioned. Dr. Arce in to visit patient and family. I/O collected.
--- NOTE | 2023-12-20 20:14 | PTCARENOTE ---
Pt AOx3, very anxious, needs alot of reassurance, VSS, Room air, lungs coarse and diminished. Pt c/o lower back pain, PRN medication given. Belly it round and distended, tender to palpations. Hypoactive bowel sounds, [place] pump in right nare,
draining dark green bile. Ostomy on right side with yellow urine. Nephrostomy tube with brownish output. Trace edema to lower extremities. Q2hour turns with pillows.
[2023-12-20] MEDS: XALATAN OPHTHALMIC SOLUTION 1 DROP BOTH EYES (21:56)
[2023-12-21] VITALS (18 sets, daily range): BP systolic 90–116; BP diastolic 51–75; BMI 21.4
[2023-12-21] MEDS: DILAUDID 0.25 MG IV ×2 (00:28→15:13)
[2023-12-21 04:46] LABS: Blood Urea Nitrogen 38 mg/dl (7-17); Carbon Dioxide 25 mmol/L (22-30); Chloride 116 mmol/L (98-107); Estimated Creatinine Clearance 15 ml/min; Glucose 102 mg/dl (70-99); Potassium 3.6 mmol/L (3.5-5.1); Sodium 148 mmol/L (135-145); eGFR 19.81
[2023-12-21 04:50] LABS: APTT 90.3 Sec (23.4-35.0)
[2023-12-21] MEDS: ATIVAN 0.5 MG IV ×2 (05:09→18:23)
--- NOTE | 2023-12-21 06:14 | PTCARENOTE ---
Pt tearful and anxious most of the night, seeking staff attention. Pt is alert and oriented, has periods of misjudgment. Pt consoled by RN, repositioned hourly. PRN Ativan given. 800ml of green bile from NGT. Urostomy draining yellow urine.
Nephrostomy tube with no output for entire shift.
--- NOTE | 2023-12-21 06:31 | W.PN.HOSP.TC ---
Today's Communication/Plan
-
.
Assessment / Plan
Assessment / Plan
Physical examination:
General: Sleeping this morning, not in respiratory distress, ill looking.
HEENT: + NG tube
Cardiovascular system S1-S2 regular
Lungs: no wheezes.
Abdomen: soft, no tenderness, less distended, + urostomy bag with clear urine
Right CV drain with no out put over night
MSK: No pedal edema
Neurological: followed commands
Psych: no agitation
# Small bowel obstruction [id number] CT
Repeat CT showing persistent higher level SBO
Anemia does not help recovery and increases patient's risk for surgery. Patient and family refused transfusion due to pentecostalism beliefs.
Abd pain
No N/V
c/w NG on suction.
IV fluids
Appreciate surgery help
# Septic Shock
Secondary to emphysematous pyelonephritis
Afebrile
Off Levophed since 12/18
C/W Ancef , renally adjusted
Blood Cx neg
Urine CX c/w klebsiella oxytoca , change ABx to Ancef
IVF-NSS/ Dextrose and sodium bicarbonate
Holding lisinopril
Recently completed Bactrim as outpatient
Appreciate ICU doctor help
# Hypernatremia, might change to D5W
# Hypokalemia-replaced
# TME resolving
Underlying obsessive-compulsive disorder, psychiatric disorder ( per records: likely schizophrenia)
Given PRN Ativan for also severe anxiety disorder.
# Lactic acidosis-Normalized.
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 Arce
Stage 3b chronic kidney disease
Nonoliguric via urostomy
Nephrolithiasis bilaterally with staghorn calculus 1.7 cm left kidney.
Right-sided percutaneous nephrostomy tube placed on 12/15/2023 by interventional radiology-purulent drainage.
c/w Ancef
Right nephrectomy will be helpful to control source of infection.
Appreciate urology & nephrology help
# Paroxysmal atrial fibrillation-currently in sinus rhythm.
Started on heparin drip ,continue Amiodarone.
No bleeding noted
No chest pain
# Elevated troponin-nonischemic myocardial injury
# Anemia-Due to chronic disease, will HGB at 5.9 now
Patient and family refused transfusion due due to pentecostalism belief. They are aware of the risks including .
No evidence of iron or B12 deficiency
Watch hemoglobin closely with heparin drip
# Thrombocytosis-likely secondary to infection follow-Improving
# Acute kidney injury on CKD-stage IIIB, metabolic acidosis, prerenal or ATN in the setting of sepsis
Hold lisinopril
Creatinine down to 2.5 from 4.7
c/w IV fluids
Recently completed a course of Bactrim as outpatient
Appreciate nephrology help
# Severe protein-caloric malnutrition, POA.
# Hyponatremia-
# Hypercalcemia-likely dehydration related. Resolved
# Primary Hypertension-hold lisinopril
# Developmental Delay
# Visual impairment - Glaucoma- Continue Eye drops latanoprost and timolol
# Tardive dyskinesia/ Essential tremors
# DVT prophylaxis-Lovenox
# CODE STATUS-Full code per D/W Niece (Pt never fills out paper work or commit)
Total time spent to see the patient, examine the patient on the floor, review data and lab results, discuss treatment plan with patient and nursing staff around 55 minutes
Anticipated Discharge: > 48 hours
Subjective/Interval History
-
Date of Service: December 21, 2023
Required Ativan over night
Right drain: no out put
Objective Data
-
Labs:
Laboratory Results
12/21/23
03:26
APTT 90.3 H
Sodium 148 H
Potassium 3.6
Chloride 116 H
Carbon Dioxide 25
BUN 38 H
Creatinine 2.5 H
Glucose 102 H
Calcium 9.0
Vital Signs:
Vital Signs
Temp Pulse Resp BP Pulse Ox
98.0 F 95 21 101/75 100
12/21/23 03:56 12/21/23 05:00 12/21/23 05:00 12/21/23 05:00 12/21/23 05:00
I&O
12/19/23 12/20/23 12/21/23
06:59 06:59 06:59
Intake Total 3827.5 / 3928.5 2295.4 / 2295.4 1954
Output Total 3880 / 3880 2210 / 2210 4400 / 4400
Balance -52.5 / 48.5 85.4 / 85.4 -2445 / -2445
--- NOTE | 2023-12-21 07:18 | W.PN.INTV ---
Today's Communication / Plan
Recommendations
Atb
H/H (but noted Jehova's Witness status)
Transfer as rec by surgery and urology
IV heparin: d/c if OK with Cards
Assessment
-
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 There has been no evidence of recurrence, with stable inguinal lymphadenopathy. Of note she
has history of gross hematuria with recurrence, known extensive staghorn calculus with nephrolithiasis. Patient with thick blood and purulent urine in the ostomy bag which appears to be intermittent, resolves with antibiotic therapy. Most recently
was started on Macrodantin as outpatient now presents with sepsis, tachycardia, hypotension, lethargy. We are asked to help from critical care standpoint 12/15/2023
Septic shock, hypotension
Requiring pressors
S/P percutaneous nephrostomy tube placement per IR 12/14
Imaging worrisome for emphysematous pyelonephritis
History of nephrolithiasis, large calculi per imaging in the past
Complex renal cysts
Bowel obstruction
Possible ileus vs bowel obstruction/adhesions
NG tube placed in ED: large bilious volume removed
Large gastric bubble per abdominal imaging
Sinus tachycardia
Abnormal EKG
Inferior ST elevation, transient
Incomplete right bundle branch block
S/p lethargy, mental status changes
Improved with IV fluids
Leukocytosis/anemia
History of recurrent UTI
Recent course of Bactrim November 2023
Acute renal insufficiency, creatinine 3.0
Baseline 1.5
Hyponatremia/hyperkalemia
Elevated lactate
Paroxysmal atrial fibrillation, now on heparin
Conditions present prior to admission:
Bladder cancer 2005
Squamous cell
Status post radical cystectomy with ileal conduit urinary diversion ([facility])
Follows urology ([facility])
No evidence of recurrence since
Chronic kidney disease, baseline 1.5
Generalized anxiety disorder
Hx of Tardive dyskinesia
Bipolar disorder
Chronic lymphedema
Cachexia
History of multiple falls
Plan/recommendations
Clinically improved
Off norepinephrine
R percutaneous nephrostomy in place
L percutaneous nephrostomy considered at some point
Tachycardia improved, atrial fibrillation noted. Patient now on heparin therapy per cardiology
History of chronic urological issues, staghorn calculi, presented with back pain
Recent course of Bactrim as outpatient with purulent output via urostomy bag
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
Urine culture positive for Klebsiella
Nephrostomy tube in place, draining pus
d/c Zosyn therapy 12/19/2023
Switch Zosyn to cefazolin 12/19/2023
Preliminary blood cultures no growth at 72 hours
Urology following: rec L nephrostomy by IRad to ensure adequate drainage of L kidney prior to surgery, not yet placed
PICC line place at RUE 12-14
Bowel obstruction
Possible ileus vs bowel obstruction/adhesions
NG tube placed in ED: large bilious volume removed
Large gastric bubble per abdominal imaging
Abdominal CT 12-14 without any obvious mass per report
Repeat CT with p.o. contrast 12-17:
1. Technically challenging evaluation of the GI tract secondary to absence of intravenous contrast and paucity of intra-abdominal fat. The stomach remains significantly distended with dilute oral contrast with multiple dilated proximal and mid
small bowel loops measuring up to 3.5 cm. There appear to be several decompressed ileal loops of the right lower quadrant suggesting the presence of a mechanical obstruction. The colon is also largely decompressed with moderate rectal distention
with wall thickening and circumferential stranding suggesting possible stercoral colitis. Mild amount of central mesenteric edema.
2. 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 Mildly improved hydronephrosis and stranding. Several renal calculi remain within the left
kidney. Right lower quadrant ileal conduit.
3. Small bilateral pleural effusions with confluent airspace consolidation within the adjacent left lower lobe, likely atelectasis.
Surgery following 12-18:
Low concern for bowel ischemia or perforation given HD stability and normalization of WBC
Candidate for exploratory laparotomy and extensive lysis of adhesions with potential risks of bowel injury or disruption of ileal conduit (likely be a several hour long procedure)
Site of management and above surgeries being explored for transfer to another facility able to manage her severe anemia in setting of Jehova's Witness status
Adm svce, Urology and Surgery coordinating transfer efforts, appreciated
Creatinine down trended to 3.0 12-19 (baseline 1.5)
Nephrology following
Recent UA from 12/06/2023 abnormal. Patient apparently completed course of Bactrim as outpatient, Macrodantin therapy also noted
Per urology, patient will eventually require nephrectomy, no intervention indicated at this juncture
On admission, EKG at 14:[address] elevation
Repeat EKG 12-14 at 15:41 without any evidence of ST elevation, nonspecific ST abnormalities
Incomplete right lower branch block
Echocardiogram with normal biventricular function, no significant valvular disease
Patient now on heparin and amiodarone therapy for atrial fibrillation
Cardiology following
Continues on IV heparin, will appreciate cards input re potential d/c IV heparin given severe anemia
DVT prophylaxis: On heparin drip for atrial fibrillation
GI prophylaxis: Remains on Protonix
Critical care time: 35 min
D/w MDT
Subjective Dataa
Subjective Data
Date of Service:
Date of Service: December 21, 2023
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
Subjective:
No major events reported overnight
Remains stable off oxygen
Complains of intermittent abdominal pain, feels sad and weak
Review of Systems
General: Fever (n), Sweats (n) and Satisfactory Appetite (n)
Cardiopulmonary: Dyspnea (n), Cough (n), Wheezing (n), Chest Pain (n), Edema (n), Lower Extremity Pain (n) and Hemoptysis (n)
GI: Abdominal Pain, Nausea (n) and Vomiting (n)
Neuro: Weakness
Objective Data
Data Reviewed
Vital Signs / I&O / Oxygen:
Vital Signs
Temp Pulse Resp BP Pulse Ox
98.0 F 95 21 101/75 100
12/21/23 03:56 12/21/23 05:00 12/21/23 05:00 12/21/23 05:00 12/21/23 05:00
Intake and Output
12/20/23 12/21/23 12/22/23
06:59 06:59 06:59
Intake Total 2295.4 / 2295.4 1954 / 1954
Output Total 2210 / 2210 4400 / 4400
Balance 85.4 / 85.4 -2445 / -2445
SaO2 100
Physical Exam
General: Comfortable (Cachectic), Other (Right upper extremity PICC line) and Other (Percutaneous nephrostomy tube)
HEENT: Normocephalic, Anicteric, Moist Mucous Membranes and Thrush (n)
Cardiovascular: S1-S2, Regular Rhythm, Murmur (n), Rub (n), JVD (n), Peripheral Edema (n) and Calf Tenderness (n)
Respiratory: Wheeze (n), Crackles (n), Rhonchi (n), Accessory Resp Muscle Use (n) and Stridor (n)
GI: Soft, Distended (Mildly distended), Non Tender, NG Tube (L nostril ) and Other (R nephrostomy tube)
Neurology: Awake, AO x 3 and No Motor Deficits (Moves all extremities, generally weak)
Skin: Cyanosis (n), Jaundice (n) and Rash (n)
Labs/Micro/Reports
Lab Data
12/21/23 03:26
Laboratory Results
12/20/23 12/21/23
11:43 03:26
APTT 97.2 H 90.3 H
Microbiology
12/15/23 14:39 Blood/Venous Blood Culture - Final
No Growth - Final Report
12/15/23 13:58 Blood/Venous Blood Culture - Final
No Growth - Final Report
12/15/23 18:31 Urine Urine Culture - Final
Klebsiella oxytoca
--- NOTE | 2023-12-21 07:46 | W.PN.CD ---
Addendum entered and electronically signed by Yao Ahn MD 12/21/23 10:21:
labs reviewed. drop in HB . IV heparin being stopped. Addition tx plans being assessed by primary team adn intensivists.
Original Note:
Today's Communication / Plan
-
Patient remains in afib without recurrence
Per most recent urology assessment, no imminent plans for additional urologic surgery due to circumstances outlined in their note.
Tx of SBO per surgical team
Remains on ASA. If felt to be stable to continue anticoagulation then transition to oral anticoagulation when able to take PO
Call if addtional assistance required. Will see as needed.
Impression / Plan
-
73 yo female with h/o bladder cancer, urostomy, HTN admitted with septic shock. She has SBO and also right pyelonephritis, now off pressor support. We are consulted for A fib with RVR, now back in SR.
Paroxysmal A fib
-back in sinus spontaneously
-currently on small dose of levophed
-CHADS2-VASC = 3. continue IV heparin, transition to Eliquis once OK, if concern for bleeding would stop heparin
Abnormal EKG - transient inferior ST elevation on EKG noted.
- mildly elevated troponin, and no chest pain
-echo: EF 55-60%, aortic sclerosis, mild AR, nl RV
-Troponin peak only 0.06 -> likely nonischemic myocardial injury
GUI - acute on chronic CKD.
- creatinine 4.7: Trended down to 3.7. Nephrology following
SBO - acute.
- NG tube in place,
- surgery consulted.
Right pyelonephritis - acute.
- urostomy bag.
- Surgery on hold per nephrology ( see note)
Echocardiogram 12/15/2023 normal left ventricular function. Aortic sclerosis, mild aortic regurgitation trivial pericardial effusion left pleural effusion.
Subjective: very anxious and nervous about surgery tomorrow
NGT. no cp or sob remains in afib
Physical Exam
Vital Signs/Labs
Vital Signs
Temp Pulse Resp BP Pulse Ox
98.0 F 95 21 101/75 100
12/21/23 03:56 12/21/23 05:00 12/21/23 05:00 12/21/23 05:00 12/21/23 05:00
12/20/23 12/21/23 12/22/23
06:59 06:59 06:59
Actual Weight 54 kg 51.4 kg
12/21/23 03:26
PT 15.8 Sec (11.4-14.6) H 12/15/23 17:14
INR 1.28 12/15/23 17:14
APTT 90.3 Sec (23.4-35.0) H 12/21/23 03:26
Magnesium 1.8 mg/dl (1.6-2.3) 12/19/23 03:44
TSH 1.72 uIU/ml (0.47-4.68) 12/16/23 05:02
Physical Exam
Constitutional: No acute distress and Other (ngt in place. Main complain it is she is thirsty)
Cardiovascular: Rhythm & rate is regular
Respiratory: Respiratory effort normal
GI: Soft
Neuro/Psych: Alert
Data Reviewed
-
Date of Service: December 21, 2023
Medical Decision Making: Reviewed Test Results
Medical Tests (PFT, Pathology etc): Report Reviewed by me
Labs: Labs Reviewed by me
--- NOTE | 2023-12-21 08:14 | W.PN.NEPH.PH ---
Today's Communication / Plan
-
Hypotonic IV fluids for worsening free water deficit
Follow BMP
No HD requirement
Maintain MAP at 65 or greater with pressor support and IV fluids
Assessment/Plan
-
Impression:
Uro-Sepsis with SBO and right pyelonephritis
Acute kidney injury (baseline CKD ~1.5)
Status post right percutaneous nephrostomy tube placement 12/15/2023
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
Ileal conduit status post cystectomy in 2005
History of hypertension
Anemia
A-fib with RVR
Thrombocytosis
Lactic acidosis
Hypocalcemia
Plan:
GUI:
-Likely prerenal in precipitated in setting of sepsis with hemodynamic collapse and possible obstructive component in setting of right pyelonephritis status post right percutaneous nephrostomy tube placement. per urology will need a R nephrectomy
and L stone removal
-Cr improved to 2.5 and remains grossly nonoliguric via urostomy
-Free water deficit worsening with sodium up to 148, will change fluids to more hypotonic
-D51/2NS with 20meq KCL per liter at 100cc/hr
-Remains hemodynamically labile
-Anemia worsening with hemoglobin 6.7 but patient refusing blood products as she is Taoism
-Antihypertensives held including lisinopril currently
-Closely monitor urostomy and right PCN output: 25cc
-Cefazolin renally dosed
-No acute dialysis requirement
-Will likely not proceed with right nephrectomy later this week as she will not consent to blood products
-
-
Date of Service: December 21, 2023
CC / HPI / ROS
-
Chief Complaint:
GUI
History of Present Illness:
GUI with Cr down to 3, peak 4.7
Hemodynamically labile
On heparin in setting of A-fib
Anemia worsening
Review of Systems:
Nonoliguric via urostomy
Weight stable
GI output 2liters, urostomy with ~ 1L
Afebrile
No chest pain or shortness of breath
right PCN
Labs
-
Labs:
Sodium 148 mmol/L (135-145) H 12/21/23 03:26
Potassium 3.6 mmol/L (3.5-5.1) 12/21/23 03:26
Chloride 116 mmol/L (98-107) H 12/21/23 03:26
Carbon Dioxide 25 mmol/L (22-30) 12/21/23 03:26
BUN 38 mg/dl (7-17) H 12/21/23 03:26
Creatinine 2.5 mg/dL (0.6-1.0) H 12/21/23 03:26
eGFR 19.81 12/21/23 03:26
Glucose 102 mg/dl (70-99) H 12/21/23 03:26
Calcium 9.0 mg/dl (8.4-10.2) 12/21/23 03:26
Albumin 3.9 g/dl (3.5-5.0) 12/15/23 13:58
Physical Exam
-
Vital Signs:
Vital Signs
Temp Pulse Resp BP Pulse Ox
98.1 F 95 21 101/75 100
12/21/23 07:50 12/21/23 05:00 12/21/23 05:00 12/21/23 05:00 12/21/23 05:00
Cardiovascular:: Regular rate and rhythm
Respiratory:: Bilateral: Coarse
Lung Excursion:: Normal
Abdomen:: Distended
Bowel Sounds:: Decreased
Extremity Edema:: None: Bilateral:
Condon Catheter: No
Other Findings::
: Urostomy and right PCN
--- NOTE | 2023-12-21 08:30 | PTCARENOTE ---
Received pt @ change of shift. Pt drowsy, awakens to verbal stim, oriented x3; anx/forgetful/tearful @ x's; frequent emotional support given. SR w PVC's on monitor. Trace LE edema. SpO2 99% on RA. Hypoactive BS, abd round/distended. R nare NGT to
LIS w green output. R upper urostomy in place draining cloudy/yellow urine. R nephrostomy in place w no output overnight. R DL PICC w IVF and heparin gtt- see flow sheet. Pt. assisted w repositioning per protocol. Instructed on how to report care
concerns and call castellanos in reach.
[2023-12-21] MEDS: NSS (PRESERVATIVE FREE) 10 ML IV (08:37)
[2023-12-21] MEDS: TIMOPTIC 0.5% OPHTHALMIC SOLUTION 1 DROP BOTH EYES (08:37)
[2023-12-21] MEDS: PROTONIX IV 40 MG IV (08:37)
[2023-12-21] MEDS: HEPARIN 25000 UNITS/250 ML IV (08:38)
[2023-12-21 08:57] LABS: Mean Corp Hgb Conc. 30.1 g/dL (33.0-37.0); Mean Corpuscular Hgb 24.3 pg (27.0-31.0); Mean Corpuscular Volume 80.7 fL (81.0-99.0); Mean Platelet Volume 9.7 fL (7.4-10.4); Platelet Count 139 10^3/uL (130-400); Red Blood Cell Count 2.43 10^6/uL (4.20-5.40); Red Cell Dist. Width 20.4 % (11.5-14.5); White Blood Cell Count 4.5 10^3/uL (4.8-10.8)
[2023-12-21 09:03] LABS: Hematocrit 19.6 % (37.0-47.0); Hemoglobin 5.9 g/dL (12.0-16.0)
[2023-12-21] MEDS: ANCEF 5 IV (09:57)
[2023-12-21] MEDS: KCL 1005 MEQ IV (09:57)
--- NOTE | 2023-12-21 12:32 | W.PN.URO.CBU ---
Addendum entered and electronically signed by Lázaro Arce MD 12/21/23 12:45:
Consider starting EPO for anemia if patient is a candidate. Discussed with Dr. Steele
Original Note:
Today's Communication / Plan
-
Continue observation for bowel obstruction
Plan for transfer to [facility]
Assessment / Plan
-
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
- Kidney infection controlled and sepsis resolved s/p R nephrostomy tube placement
- Continue observation for spontaneous return of bowel function
- Given persistent SBO without improvement over several days, need for surgical management is becoming more likely
- If going to OR for exlap, right nephrectomy of XGP kidney would ideally be completed at the same time to avoid another major operation and obtain full source control. However, given patient's significant anemia and refusal of blood products,
nephrectomy for XGP kidney is not feasible. This operation commonly has significant bleeding due to fragile and adherent tissue, and midline access is more difficult
- If general surgery determines surgical management of SBO is necessary, would recommend IR placement of left percutaneous nephroureterostomy tube to help identify left ureter intraoperatively. Urology will be available to place catheter in the
urostomy to help identify this portion of small bowel
Discussed today with Johnny Epstein, urologist at [facility] who has accepted patient for transfer. He was in agreement with management as above until bed available and transport can be arranged
Diagnosis
-
Date of Service: December 21, 2023
-
Patient Diagnosis:
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
Left Renal Stones
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
Resolving sepsis
Small bowel obstruction
Subjective
-
no new events
no return of bowel function
Objective
-
Vital Signs
Temp Pulse Resp BP Pulse Ox
97.7 F 95 21 101/75 99
12/21/23 12:22 12/21/23 05:00 12/21/23 05:00 12/21/23 05:00 12/21/23 08:56
Intake and Output
12/20/23 12/21/23 12/22/23
06:59 06:59 06:59
Intake Total 2295.4 / 2295.4 1954 395 / 395
Output Total 2210 / 2210 4400 / 4400 300 / 300
Balance 85.4 / 85.4 -2445 / -2360 95 / 95
Intake:
IV fluids (Total) 2101.4 / 2101.4 1954 365 / 365
D5/0.45%NaCl 1,000 ml @ 100 mls 100 / 100
/hr IV .Q10H3M CALLIE with KCl 10
Meq Rx#:[id number]
D5/0.45%NaCl 1,000 ml @ 75 mls/ 1650 / 1725 225 / 225
hr IV .[id number] CALLIE with KCl 20
Meq with Sodium Bicarbonate 75
Meq Rx#:[id number]
D5/0.9% with KCL 20 MEQ 20 meq 1425 / 1425 75 / 75
In 1,000 ml @ 75 mls/hr IV .
[id number] CALLIE Rx#:[id number]
Levo 41.4 / 41.4
Nss 1,000 ml @ 75 mls/hr IV . 375 / 375
[id number] CALLIE Rx#:[id number]
heparin 260 / 260 230 / 240 40 / 40
IV piggybacks 134 / 134
Amount instilled into GI Tube ( 60 / 60 30 / 30
Total)
[place] Sump 60 / 60 30 / 30
Output:
Urinary Drain Output (Total) 135 / 135 50 / 50
Right Nephrostomy 135 / 135 50 / 50
Gastrointestinal tube output ( 850 / 850 2900 / 2900
Total)
[place] Sump 850 / 850 2900 / 2900
Urostomy output 1225 / 1225 1450 / 1450 300 / 300
Other:
Number of approximated SMALL 30
amounts of urine
Laboratory Results
12/21/23 08:48
12/21/23 03:26
Physical Exam
-
General - well developed, well nourished, no acute distress
Chest - clear bilaterally
Abdomen - non tender, NGT bilious
Skin - warm & dry with no rash
Extremities - no clubbing, no cyanosis, no edema
[2023-12-21] MEDS: KCL 50 IV (12:34)
--- NOTE | 2023-12-21 13:03 | PTCARENOTE ---
Pt.'s AM hgb resulted 5.9. Dr. Laws and Dr. Steele aware. Heparin gtt on hold per orders. Plan to transfer to facility that can manage anemia w Uatsdin status per medical team; awaiting accepting facility per Dr. Steele.
--- NOTE | 2023-12-21 13:25 | CM ---
Addendum entered by Raffaele Bravo 12/21/23 14:29:
Per MD pt is accepted by [facility], room 305 A.
CM met with pt. Pt's sister and niece Lisbeth arrived from [place] and visiting the pt. Both pt and her family are aware of pt's be transferred to [facility] today.
UC to arrange ambulance, ALS.
D/C plan: transfer to [facility].
Original Note:
CM following re: discharge planning.
Discussed in Rounds, reviewed pt's chart, met with pt. Per Rounds meeting, continue to wean pressors, continue antibiotics, NPO, IVF, NGT decompression, continue supportive care. Per Urology, plan for transfer to [facility]
Pt lives alone in a mobile home, has a cat and per pt her cat is taking care of by her neighbor Mark. Pt reports she does not have immediate family here, her niece and a sister live in [place]. Pt reports she ambulates with a walker at baseline, had VN
services in the past and pt cannot recall the name of VN provider. Pt reports she had some falls at home and now she is afraid even to stand.
D/C plan: transfer to [facility]
CM will follow to assist pt with transfer to [facility].
--- NOTE | 2023-12-21 13:32 | W.PN.UPDATE ---
Addendum entered and electronically signed by Genet Steele MD 12/21/23 15:32:
Addendum
[facility] doctor accepted the patient
Transfer consent signed by Family Lisbeth, fleet salesperson.
d/w ICU doctor
Total discharge time spent to see the patient, examine the patient on the floor, review data and lab results, discuss discharge plan, [facility] doctor and perinatal coordinator, rn case management, consultants with patient and nursing staff around 75 minutes
Original Note:
Update Note
Progress Note Update
Addendum
Called [facility] to transfer the patient due to complexity of her urological procedure. D/w Dr Arce and Dr. Limon. They are available to support transfer discussion.
[facility] doctor has not accepted the patient yet, he will call me back
Will follow
Hold heparin due to bleeding risk
c/w IVF and IV Abx, NG suction.
--- NOTE | 2023-12-21 14:39 | W.PN.GS2 ---
Today's Communication / Plan
-
`
Assessment / Plan
-
73 yo female with a history of bladder ca and cystectomy with ileal conduit creation at [facility] in 2005 who presents with back pain and nausea from home. Admitted with urosepsis. In addition to abnormal urologic findings CT with possible SBO vs ileus,
limited to lack of PO contrast. Stomach was markedly distended.
no clinical signs of bowel compromise/ischemia
stable with NGT decompression
with hgb of 5.9 and no transfusions d/t Jehovah witness pt not surgical candidate acute
anticipated need for TPN, bowel rest and medical measures to potentially raise hgb (epo, etc)
pt will be transferred to [facility] where her urologic care to date has been previously established
Subjective Data
-
Date of Service: December 21, 2023
pt seen and examined
family at bedside
denies abd pain, no nausea
NGT in place
no flatus or BM
Objective Data
-
Intake and Output
12/20/23 12/21/23 12/22/23
06:59 06:59 06:59
Intake Total 2295.4 / 2295.4 1954 785 / 785
Output Total 2210 / 2210 4400 / 4400 300 / 300
Balance 85.4 / 85.4 -2445 / -2360 485 / 485
Intake:
IV fluids (Total) 2101.4 / 2101.4 1954 675 / 675
D5/0.45%NaCl 1,000 ml @ 100 mls 400 / 400
/hr IV .Q10H3M CALLIE with KCl 10
Meq Rx#:[id number]
D5/0.45%NaCl 1,000 ml @ 75 mls/ 1650 / 1725 225 / 225
hr IV .[id number] CALLIE with KCl 20
Meq with Sodium Bicarbonate 75
Meq Rx#:[id number]
D5/0.9% with KCL 20 MEQ 20 meq 1425 / 1425 75 / 75
In 1,000 ml @ 75 mls/hr IV .
[id number] CALLIE Rx#:[id number]
Levo 41.4 / 41.4
Nss 1,000 ml @ 75 mls/hr IV . 375 / 375
[id number] CALLIE Rx#:[id number]
heparin 260 / 260 230 / 240 50 / 50
IV piggybacks 134 / 134 50 / 50
Amount instilled into GI Tube ( 60 / 60 60 / 60
Total)
[place] Sump 60 / 60 60 / 60
Output:
Urinary Drain Output (Total) 135 / 135 50 / 50
Right Nephrostomy 135 / 135 50 / 50
Gastrointestinal tube output ( 850 / 850 2900 / 2900
Total)
[place] Sump 850 / 850 2900 / 2900
Urostomy output 1225 / 1225 1450 / 1450 300 / 300
Other:
Number of approximated SMALL 30
amounts of urine
Vital Signs
Temp Pulse Resp BP Pulse Ox
97.7 F 95 21 101/75 99
12/21/23 12:22 12/21/23 05:00 12/21/23 05:00 12/21/23 05:00 12/21/23 08:56
Lab Results
12/21/23 08:48
12/21/23 03:26
Calcium 9.0 mg/dl (8.4-10.2) 12/21/23 03:26
Magnesium 1.8 mg/dl (1.6-2.3) 12/19/23 03:44
Total Bilirubin 0.4 mg/dl (0.2-1.3) 12/15/23 13:58
AST 22 U/L (14-36) 12/15/23 13:58
ALT 25 U/L (0-35) 12/15/23 13:58
Alkaline Phosphatase 100 U/L (38-126) 12/15/23 13:58
Total Protein 7.4 g/dl (6.3-8.2) 12/15/23 13:58
Albumin 3.9 g/dl (3.5-5.0) 12/15/23 13:58
Physical Exam
-
NAD AAOx3 comfortably resting in hospital bed
ABD: softly distended, nontender
urostomy right side with clear urine
[2023-12-21] MEDS: D5/0.45%NACL 1000 IV (15:13)
[2023-12-21] MEDS: LIDOCAINE 4% PATCH 1 PATCH TOPICAL (15:13)
--- NOTE | 2023-12-21 15:32 | W.DCSUMMARY ---
Discharge Summary
Discharge Data
Date of Admission: 12/15/23
Date of Discharge: 12/21/23
-
Pending Results: No
Hospital Course
73 years old female with history of bladder cancer, cystectomy with ileal conduit creation at [facility] in 2005 was sent to the hospital, by a visiting nurse who found her to have high heart rate and low blood pressure. Patient was
being treated for UTI with Macrobid. White blood cell count was elevated, sodium was 130, potassium 5.2, creatinine 3.7, lactic acid was 8.1. Patient was diagnosed with severe sepsis and septic shock. Patient was noted to have moderate to severe
protein caloric malnutrition. Scan of the abdomen and pelvis showed signs of small bowel obstruction with significantly distended stomach, stool burden. Other findings were compatible with chronic xanthogranulomatous pyelonephritis of the right
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
approximately 15 mm. There was no evidence for an obstructing left renal pelvic calculus. No significant calyceal dilation or renal pelvic dilation involving the left kidney. Interventional radiologist was consulted and she had successful placement
of right percutaneous nephrostomy tube yielding grossly purulent fluid. Nasogastric tube was placed and she had significant output. Urology and surgery doctors were consulted. Patient was admitted to the intensive care unit. She received
intravenous antibiotic. Urine culture showed Klebsiella infection. Blood culture did not show growth. Patient was given pressure support medication in the beginning. She received intravenous fluid. She was followed by registered public health nurse for kidney
failure. Creatinine came down to 2.5. Urostomy bag continued to function. Repeat imaging studies of the abdomen and pelvis showed persistent small bowel obstruction. Patient had baseline anemia and seemed to worsen due to acute illness. No
active bleeding noted. Patient did not want to receive blood transfusion due to her holiness beliefs. Her hemoglobin dropped down to 5.9. Her blood pressure stabilized with no need for further pressure support medications. She was followed by
intensive care doctor specialist. Recommendation from urologist was to transfer the patient to [facility] care for need of complex urological procedure/right nephrectomy. Resources were also limited in hospital due to lack of bloodless program in
[facility]. Urology specialists in [facility] Dr Epstein was contacted and accepted the patient. Family consented to the transfer. Patient remained hemodynamically stable and was transferred in a stable condition.
Discharge Plan
-
Patient Disposition: Acute Care Hospital
Discharge Orders:
Discharge Patient (As Directed); Ordered 12/21/23
Ordered By: Genet Steele
Discharge Date and Time
Discharge Date/Time: 12/21/23 18:55
Print Language: [place]
--- NOTE | 2023-12-21 16:57 | PTCARENOTE ---
Report given to Ashley Contreras RN, awaiting transport for patient. Care ongoing, call castellanos in reach.
[2023-12-21] MEDS: NSS (PRESERVATIVE FREE) 0.25 ML IV (18:23)
--- NOTE | 2023-12-21 18:43 | PTCARENOTE ---
Pt. discharged via stretcher w EMS personnel to [facility]. Family @ bedside, updated on transfer. No further needs from this RN.
== END 2023-12-21 18:55 | disposition short-term general hospital (02) | DRG 871 ==
LOC: ICU 15:45
PROVIDERS: Internal Medicine Cardiovascular Disease; Internal Medicine Pulmonary Disease; Nurse Practitioner Primary Care; Radiology Diagnostic Radiology; Radiology Vascular & Interventional Radiology; ADMITTING PHYSICIAN Hospitalist; ATTENDING PHYSICIAN Internal Medicine; CONSULT PHYSICIAN Internal Medicine; CONSULT PHYSICIAN Internal Medicine Critical Care Medicine; CONSULT PHYSICIAN Specialist; EMERGENCY PHYSICIAN Emergency Medicine; FAMILY PHYSICIAN Family Medicine; OTHER PHYSICIAN Surgery
PROC: 0D9670Z Drainage of Stomach with Drainage Device, Via Natural or Artificial Opening (ICD-10-PCS; 2023-12-15)
PROC: BT111ZZ Fluoroscopy of Right Kidney using Low Osmolar Contrast (ICD-10-PCS; 2023-12-15)
PROC: 0T9330Z Drainage of Right Kidney Pelvis with Drainage Device, Percutaneous Approach (ICD-10-PCS; 2023-12-15)
PROC: 02HV33Z Insertion of Infusion Device into Superior Vena Cava, Percutaneous Approach (ICD-10-PCS; 2023-12-15)
DX: A41.9 Sepsis, unspecified organism (principal); E43 Unspecified severe protein-calorie malnutrition; G92.8 Other toxic encephalopathy; R65.21 Severe sepsis with septic shock; R64 Cachexia; N17.9 Acute kidney failure, unspecified; N12 Tubulo-interstitial nephritis, not specified as acute or chronic; K56.609 Unspecified intestinal obstruction, unspecified as to partial versus complete obstruction; E87.1 Hypo-osmolality and hyponatremia; E87.20 Acidosis, unspecified; K56.7 Ileus, unspecified; I5A Non-ischemic myocardial injury (non-traumatic); E87.0 Hyperosmolality and hypernatremia; I95.9 Hypotension, unspecified; K80.20 Calculus of gallbladder without cholecystitis without obstruction; I89.0 Lymphedema, not elsewhere classified; R68.0 Hypothermia, not associated with low environmental temperature; F31.9 Bipolar disorder, unspecified; F41.1 Generalized anxiety disorder; D64.9 Anemia, unspecified; F20.9 Schizophrenia, unspecified; M19.90 Unspecified osteoarthritis, unspecified site; M81.0 Age-related osteoporosis without current pathological fracture; E78.5 Hyperlipidemia, unspecified; D75.839 Thrombocytosis, unspecified; E87.5 Hyperkalemia; E83.51 Hypocalcemia; I48.0 Paroxysmal atrial fibrillation; E86.0 Dehydration; I12.9 Hypertensive chronic kidney disease with stage 1 through stage 4 chronic kidney disease, or unspecified chronic kidney disease; R62.50 Unspecified lack of expected normal physiological development in childhood; H40.9 Unspecified glaucoma; R29.6 Repeated falls; I45.10 Unspecified right bundle-branch block; G24.01 Drug induced subacute dyskinesia; E87.6 Hypokalemia; N18.32 Chronic kidney disease, stage 3b; B96.1 Klebsiella pneumoniae [K. pneumoniae] as the cause of diseases classified elsewhere; G25.0 Essential tremor; Z87.442 Personal history of urinary calculi; Z79.82 Long term (current) use of aspirin; Z85.51 Personal history of malignant neoplasm of bladder; Z91.81 History of falling; Z82.3 Family history of stroke; Z82.0 Family history of epilepsy and other diseases of the nervous system; Z80.7 Family history of other malignant neoplasms of lymphoid, hematopoietic and related tissues; Z87.440 Personal history of urinary (tract) infections; Z93.6 Other artificial openings of urinary tract status; Z68.21 Body mass index [BMI] 21.0-21.9, adult
CPT/HCPCS: 43752; 50432; 71045; 74018; 74176; 80048; 80053; 81003; 81015; 81099; 82533; 82607; 82728; 82962; 83540; 83550; 83605; 83735; 84443; 84484; 85014; 85018; 85025; 85027; 85610; 85730; 87040; 87077; 87086; 87186; 93005; 93306; 96361; 96365; 96367; 96375; 97163; 97167; 97530; 99152; 99153; 99291; C1729; C1769

== ENCOUNTER → 2024-03-14 10:13 | Outpatient (REF) | payer MEDICARE, OTHER, SELFPAY | LOC: RAD 10:13 | PROVIDERS: ATTENDING PHYSICIAN Surgery; FAMILY PHYSICIAN Family Medicine | DX: K56.609 Unspecified intestinal obstruction, unspecified as to partial versus complete obstruction (principal) | CPT/HCPCS: 74240; 74248 ==

== ENCOUNTER → 2024-05-23 10:13 | Outpatient (REF) | payer MEDICARE, OTHER, SELFPAY | LOC: RAD 10:13 | PROVIDERS: ATTENDING PHYSICIAN Surgery; FAMILY PHYSICIAN Family Medicine | DX: C67.0 Malignant neoplasm of trigone of bladder (principal) | CPT/HCPCS: 74176 ==

== ENCOUNTER 2024-05-23 10:51 | Emergency (ER) | payer MEDICARE, OTHER, SELFPAY ==
[2024-05-23 11:15] VITALS: BP 117/60
--- NOTE | 2024-05-23 12:45 | ED.GENMED ---
History of Present Illness
General
Chief Complaint: Catheter/Tube Problem
Time Seen by Provider: 05/23/24 12:29
History of Present Illness
History of Present Illness:
Patient presents to the emergency department with pain around her PEG tube site. She was in the hospital for CT scan as she has a colostomy and is hoping to get this reversed. Over the past week she has noticed pain and redness at the site of her
PEG tube. She figured that while she was in the hospital she would get this checked out. Denies any fevers or chills. Denies vomiting. Otherwise feels at her baseline.
Past History
Past History
ED Past Medical History: Other (Chronic kidney disease, eye disease, lymphedema, bladder cancer)
Social History
Tobacco: Non-smoker
Alcohol: None
Drug: None
Living: alone
Phy Exam
Physical Exam
Physical Exam:
GENERAL APPEARANCE: NAD, chronically ill-appearing
EYES lids/conjunctiva normal
EARS/NOSE/THROAT Mucous membranes moist, uvula midline without oral pharyngeal erythema, exudate or swelling
HEAD/NECK normocephalic atraumatic, neck is supple.
RESPIRATORY respiratory effort normal, speaks in full sentences, no accessory muscle use. Lungs clear to auscultation without rhonchi, wheezes, rales
CARDIAC Regular rate and rhythm, no edema.
ABDOMINAL abdomen is soft and nontender. Nondistended. There is PEG tube with granulation tissue that is tender present. There is no surrounding cellulitic changes, erythema, induration. She has an ileal conduit that is intact and clean
appearing. She has a colostomy that is also intact and clean appearing
MUSCLES/EXTREMITIES No abnormal range of motion, no swelling.
SKIN Warm, pink and dry. No rashes
NEUROLOGICAL Speech is clear and appropriate. Normal level of consciousness. 5/5 strength in all extremities.
PSYCH Normal mood and affect. Judgement/competence is appropriate
Course
Orders/Labs/Results
Orders:
Orders
05/23/24 13:03
Basic Metabolic Panel Urgent
Complete Blood Count/With Diff Urgent
Abnormal Lab Results
05/23/24
13:03
RBC 3.55 L 10^6/uL
(4.20-5.40)
Hgb 9.6 L g/dL
(12.0-16.0)
Hct 31.0 L %
(37.0-47.0)
MCHC 31.0 L g/dL
(33.0-37.0)
RDW 18.3 H %
(11.5-14.5)
Immature Gran % 0.7 H %
(0-0.5)
Eosinophils % 6.2 H %
(0-6)
Chloride 117 H mmol/L
(98-107)
Carbon Dioxide 14 L* mmol/L
(22-30)
BUN 42 H mg/dl
(7-17)
Creatinine 1.9 H mg/dL
(0.6-1.0)
05/23/24 13:03
05/23/24 13:03
Vital Signs
Initial and Last Documented VS:
Initial Vital Signs
Temp Pulse Resp BP Pulse Ox
97.8 F 64 18 117/60 100
05/23/24 11:15 05/23/24 11:15 05/23/24 11:15 05/23/24 11:15 05/23/24 11:15
Last Documented Vital Signs
Temp Pulse Resp BP Pulse Ox
97.8 F 64 18 117/60 100
05/23/24 11:15 05/23/24 11:15 05/23/24 11:15 05/23/24 11:15 05/23/24 11:15
*Critical Care Note
Total Time (30-74mins, 75-104mins- exclusive of procedures): Not Applicable
ED Attending Note
ED Attending Note
ED Attending Note:
Skin does not appear infected. She is having pain at the site of granulation tissue. Instructed to continue local wound care with silver nitrate. Will check basic labs
labs with noted chronic renal failure and hyperchloremic acidosis. Asymptomatic Likely from bicarb loss from ostomy. Instructed patient to hydrate with free water. Have repeat testing in the next week
return precautions given.
-
Portions of this chart may have been created with voice recognition software.� Occasional wrong word or��sound alike� substitutions may have occurred due to the inherent limitations of voice recognition software.
Discharge Plan
Departure
Patient Disposition: [facility]/SNF
Date of Disposition: 05/23/24
Time of Disposition: 15:33
Discharge Problem:
Irritation around percutaneous endoscopic gastrostomy (PEG) tube site, Hyperchloremic metabolic acidosis
Instructions: How to Care for Your Gastrostomy Tube
Prescriptions:
No Action
ondansetron HCl 8 mg tablet
8 mg PO Q8HPRN PRN (Reason: nausea)
lisinopril 20 mg tablet
20 mg PO DAILY
alendronate 70 mg tablet
70 mg PO WEEKLY
timolol maleate 0.5 % drops
1 drp BOTH EYES DAILY
latanoprost 0.005 % Drops
1 drp BOTH EYES QPM
sennosides [Senokot] 8.6 mg Tablet
8.6 mg PO BIDPRN PRN (Reason: constipation)
aspirin 81 mg Tablet,Delayed Release (Dr/Ec)
81 mg PO DAILY
Referrals:
Aracelis Brito MD [Family Provider] -
Activity Restrictions/Additional Instructions:
You were found to have granulation tissue that was causing irritation around the site of your PEG tube. We cauterized this with silver nitrate. Please continue local wound care at the nursing facility. Your blood work indicated that you had a
hyperchloremic metabolic acidosis. This is likely from losses through urostomy tube as well as your kidney disease and poor fluid intake. Please drink plenty of water and have your metabolic panel rechecked sometime in the next few days. Return
to the ER with new or worsening symptoms
Interventions
Interventions:
*Risk Screen - Suicide Last Done: 05/23/24 11:15
*General Assessment Last Done: 05/23/24 11:15
*ED COVID-19 Vaccine History Last Done: 05/23/24 11:15
SS-Blvmif-Uipsmrdsib Assessment Last Done: 05/23/24 13:18
ED-Female Genitourinary Assessment Last Done: 05/23/24 13:18
Discharge Date and Time
Print Language: [place]
[2024-05-23 13:09] LABS: % Eosinophils 6.2 % (0-6); % Immature Granulocytes 0.7 % (0-0.5); % Lymphocytes 22.5 % (20.5-51.1); % Neutrophils 60.6 % (42.2-75.2); Absolute Basophils 0.1 10^3/uL (0-0.2); Absolute Eosinophils 0.4 10^3/uL (0-0.7); Absolute Lymphocytes 1.3 10^3/uL (1.2-3.4); Absolute Monocytes 0.5 10^3/uL (0.1-0.6); Absolute Neutrophils 3.5 10^3/uL (1.4-6.5); Hemoglobin 9.6 g/dL (12.0-16.0); Mean Corpuscular Volume 87.3 fL (81.0-99.0); Nucleated Red Blood Cells % 0 %; Platelet Count 185 10^3/uL (130-400); Red Blood Cell Count 3.55 10^6/uL (4.20-5.40); Red Cell Dist. Width 18.3 % (11.5-14.5); White Blood Cell Count 5.8 10^3/uL (4.8-10.8)
[2024-05-23 13:42] LABS: Blood Urea Nitrogen 42 mg/dl (7-17); Calcium 9.3 mg/dl (8.4-10.2); Carbon Dioxide 14 mmol/L (22-30); Chloride 117 mmol/L (98-107); Glucose 99 mg/dl (70-99); Potassium 4.2 mmol/L (3.5-5.1); Sodium 143 mmol/L (135-145); eGFR 27.37
--- NOTE | 2024-05-23 14:05 | PHANOTE ---
med rec note- patient currently living at [facility], call [facility] at [phone] for missing paperwork. patient came over from out patient ct scan with no paperwork. called and spoke to nursing staff awaiting for fax.
== END 2024-05-23 16:15 ==
LOC: EMR 10:51
PROVIDERS: EMERGENCY PHYSICIAN Emergency Medicine; FAMILY PHYSICIAN Family Medicine
DX: Z43.1 Encounter for attention to gastrostomy (principal); E87.29 Other acidosis; E87.8 Other disorders of electrolyte and fluid balance, not elsewhere classified; N18.9 Chronic kidney disease, unspecified; Z85.51 Personal history of malignant neoplasm of bladder
CPT/HCPCS: 99283; 80048; 85025

== ENCOUNTER → 2025-06-30 13:46 | Outpatient (REF) | payer MEDICARE, OTHER, SELFPAY | LOC: HWRCS 13:46 | PROVIDERS: ATTENDING PHYSICIAN Internal Medicine Nephrology | DX: R60.0 Localized edema (principal) | CPT/HCPCS: 93306 ==